=== PATIENT | male | born 1945 | race Caucasian/White ===

== ENCOUNTER 2019-07-18 21:25 | Emergency (ER) | payer MEDICARE, BC ==
[2019-07-18] MEDS ORDERED: Sodium Chloride 0.9% 10 ML Syringe FLUSH PRN (21:41)
[2019-07-18] MEDS ORDERED: HYDROmorphone 1 MG/ML Syringe IVPUSH ONE (21:42)
[2019-07-18] MEDS ORDERED: Sodium Chloride 0.9% 1,000 ML IV ONE (21:42)
[2019-07-18] MEDS ORDERED: Ondansetron 4 MG/2 ML SDV IVPUSH ONE (21:42)
[2019-07-18 22:26] LABS: CHLORIDE,CL 106 mmol/L (98-107); SODIUM,NA 144 mmol/L (136-145)
[2019-07-18 22:27] LABS: ANION GAP 15.6 mmol/L (10-20)
[2019-07-18] MEDS ORDERED: Iopamidol 612 MG/ML 100 ML Bottle IVPUSH ONE (23:13)
[2019-07-18] MEDS ORDERED: Take Home: Ondansetron 4 MG Tab.DIS, 2 Tab Pack PO ONE (23:36)
--- NOTE | 2019-07-19 00:11 | EDM.PDOC ---
ED HPI GENERAL MEDICAL PROBLEM - General Chief Complaint: Gastrointestinal Problem Stated Complaint: Nausea and vomiting Time Seen by Provider: 07/18/19 21:35 Source of Information: Reports: Patient History Limitations: Reports: No Limitations - History of Present Illness INITIAL COMMENTS - FREE TEXT/NARRATIVE: Pt. presents to ER with complaints of nausea, stomach upset, and inability to hold down medications. Pt. complains of severe leg discomfort, but states that this is chronic in nature, and worse because he has been unable to take his oxycodone. Denies any diarrhea. No chest pain or shortness of breath. He does complain of weakness and fatigue. He states that numerous people that he spent gerson with were ill with similar symptoms. Onset: Today Onset Date: 07/19/19 Location: Reports: Abdomen, Lower Extremity, Left, Lower Extremity, Right, Generalized Quality: Reports: Ache, Burning Associated Symptoms: Reports: Nausea/Vomiting bilateral leg pain Pain Score (Numeric/FACES): 10 - Related Data Allergies Allergy/AdvReac Type Severity Reaction Status Date / Time bee venom protein (honey bee) Allergy Hives Verified 07/18/19 21:55 morphine Allergy Hives Verified 07/18/19 21:55 Penicillins Allergy Hives Verified 07/18/19 21:55 Home Meds: Home Meds carvediloL [Coreg] 12.5 mg PO BID 11/08/13 [History] Isosorbide Mononitrate [Isosorbide Mononitrate ER] 60 mg PO DAILY 08/30/16 [ History] Sertraline [Zoloft] 150 mg PO DAILY 08/30/16 [History] amLODIPine [Norvasc] 5 mg PO DAILY 08/30/16 [History] oxyCODONE HCl [Oxycodone HCl] 10 mg PO Q4H PRN 08/30/16 [History] Amitriptyline [Elavil] 50 mg PO BEDTIME 06/17/18 [History] Aspirin [Halfprin] 81 mg PO DAILY 06/17/18 [History] Gabapentin [Neurontin] 600 mg PO TID 06/17/18 [History] Lutein/Zeaxanthin [Lutein-Zeaxanthin 25-5 mg Sfgl] 1 each PO DAILY 06/17/18 [ History] Nitroglycerin 0.4 mg SL ASDIRECTED 06/17/18 [History] Omeprazole Magnesium [Prilosec Otc] 20 mg PO DAILY 06/17/18 [History] Sennosides/Docusate Sodium [Sennosides-Docusate Sodium] 2 each PO BID 06/17/18 [ History] atorvaSTATin Calcium [Lipitor] 40 mg PO DAILY 06/17/18 [History] Past Medical History Cardiovascular History: Reports: Angina, CAD, High Cholesterol, Hypertension, [place] Other Cardiovascular History: states he was told he had a heart attack "a long time ago" but was unaware of the incident. dislipidemia. peripheral arterial occlusive disease, chronic. peripheral vascular disease, chronic Respiratory History: Reports: COPD Gastrointestinal History: Reports: Hiatal Hernia Other Gastrointestinal History: schatzki's ringrecurent left inguinal hernia Other Genitourinary History: hematuria. nephrolithiasis Other Musculoskeletal History: degeneration of lumbar intervertebral disc. bilateral carpal tunnel syndrome. failed back syndrome. cervical radiculitis. cervical myelopathy. cervical spondylosis with myelopathy. degenerative disc disease, cervical. s/p spinal fusion Other Neuro History: restless leg syndrome. idiopathic progressive polyneuropathy Psychiatric History: Reports: Depression Other Psychiatric History: smoking addiction Other Endocrine/Metabolic History: unintentional wt loss - Past Surgical History Cardiovascular Surgical History: Reports: Coronary Artery Stent Other Cardiovascular Surgeries/Procedures: cardiac catherization GI Surgical History: Reports: Colonoscopy, EGD, Hernia, Inguinal, Hernia Repair/ Other Other Female Surgeries/Procedures: cystoscopy Male Surgical History: Reports: Lithotripsy ([facility]) Musculoskeletal Surgical History: Reports: Arthroscopic Procedure Other Musculoskeletal Surgeries/Procedures:: lumbar fusion. cervical spine surgery. hand surgery. cervical fusion ED ROS GENERAL - Review of Systems Review Of Systems: See Below Constitutional: Reports: No Symptoms HEENT: Reports: No Symptoms Respiratory: Reports: No Symptoms Cardiovascular: Reports: No Symptoms Endocrine: Reports: No Symptoms GI/Abdominal: Reports: Abdominal Pain, Nausea, Vomiting. Denies: Black Stool, Bloody Stool, Diarrhea, Distension : Reports: No Symptoms Musculoskeletal: Reports: No Symptoms Skin: Reports: No Symptoms Neurological: Reports: No Symptoms Psychiatric: Reports: No Symptoms Hematologic/Lymphatic: Reports: No Symptoms Immunologic: Reports: No Symptoms ED EXAM, GENERAL - Physical Exam Exam: See Below Exam Limited By: No Limitations General Appearance: Alert, WD/WN, No Apparent Distress Nose: Normal Inspection, Normal Mucosa, No Blood Throat/Mouth: Normal Inspection, Normal Lips, Normal Teeth, Normal Gums, Normal Oropharynx, No Airway Compromise Head: Atraumatic, Normocephalic Neck: Normal Inspection, Supple, Non-Tender Respiratory/Chest: No Respiratory Distress, Lungs Clear, Normal Breath Sounds, No Accessory Muscle Use, Chest Non-Tender Cardiovascular: Normal Peripheral Pulses, Regular Rate, Rhythm, No Edema, No JVD , No Murmur, No Rub Peripheral Pulses: 4+: Radial (R) GI/Abdominal: Normal Bowel Sounds, Soft, Tender (diffuse). No: Guarding, Rigid , Rebound, Mass (Male) Exam: Deferred Back Exam: Normal Inspection, Full Range of Motion Extremities: Normal Inspection, Normal Range of Motion, Non-Tender, No Pedal Edema, Normal Capillary Refill Neurological: Alert, Oriented, CN II-XII Intact, Normal Cognition, Normal Reflexes Psychiatric: Normal Affect, Normal Mood Course - Vital Signs Last Recorded V/S: Last Vital Signs Temp 37.6 C 07/18/19 21:25 Pulse 66 07/18/19 21:25 Resp 16 07/18/19 21:25 BP 184/71 H 07/18/19 21:25 Pulse Ox 97 07/18/19 21:25 - Orders/Labs/Meds Orders: Active Orders 24 hr Category Date Time Status Abdomen 2V AP Flat Upright [CR] Stat Exams 07/18/19 21:41 Taken Abdomen Pelvis w Cont [CT] Stat Exams 07/18/19 22:57 Taken Sodium Chloride 0.9% [Saline Flush] Med 07/18/19 21:41 Active 10 ml FLUSH ASDIRECTED PRN Peripheral IV Insertion Adult [OM.PC] Routine Oth 07/18/19 21:42 Ordered Medication Orders Sodium Chloride (Saline Flush) 10 ml FLUSH ASDIRECTED PRN PRN Reason: Keep Vein Open Labs: Laboratory Tests 07/18/19 07/18/19 07/18/19 Range/Units 22:02 22:02 22:02 WBC 12.0 H (4.0-10.0) x10^3/uL RBC 4.79 (4.5-6.0) x10^6/uL Hgb 14.9 (14.0-18.0) g/dL Hct 45.2 (40.0-52.0) % MCV 94.4 H (78.0-93.0) fL MCH 31.1 (26.0-32.0) pg MCHC 33.0 (32.0-36.0) g/dL RDW Coeff of Jerome 14.1 (10.0-15.0) % Plt Count 275 (130-400) x10^3/uL Neut % (Auto) 88.5 H (50.0-80.0) % Lymph % (Auto) 5.3 L (25.0-50.0) % Whitley % (Auto) 5.8 (2.0-11.0) % Eos % (Auto) 0.2 (0.0-4.0) % Baso % (Auto) 0.2 (0.2-1.2) % PT 10.8 (10.0-12.8) SEC INR 1.0 L (2.0-3.5) Sodium 144 (136-145) mmol/L Potassium 3.6 (3.5-5.1) mmol/L Chloride 106 (98-107) mmol/L Carbon Dioxide 26 (21-32) mmol/L Anion Gap 15.6 (10-20) mmol/L BUN 16 (7-18) mg/dL Creatinine 0.8 (0.70-1.30) mg/dL Est Cr Clr Drug Dosing 80.75 mL/min Estimated GFR (MDRD) > 60 Glucose 113 H (74-106) mg/dL Calcium 9.1 (8.5-10.1) mg/dL Corrected Calcium 9.42 (8.5-10.1) mg/dL Total Bilirubin 0.5 (0.2-1.0) mg/dL AST 15 (15-37) U/L ALT 19 (16-63) U/L Alkaline Phosphatase 91 (46-116) U/L C-Reactive Protein 4.6 H (<=0.9) mg/dL Total Protein 7.3 (6.4-8.2) g/dL Albumin 3.6 (3.4-5.0) g/dL Globulin 3.7 Albumin/Globulin Ratio 0.97 Meds: Medications Generic Name Dose Route Start Last Admin Trade Name Freq PRN Reason Stop Dose Admin Sodium Chloride 10 ml 07/18/19 21:41 Saline Flush FLUSH ASDIRECTED PRN Keep Vein Open Discontinued Medications Generic Name Dose Route Start Last Admin Trade Name Trang PRN Reason Stop Dose Admin Hydromorphone HCl 1 mg 07/18/19 21:42 07/18/19 22:07 Dilaudid IVPUSH 07/18/19 21:43 1 mg ONETIME ONE Administration Sodium Chloride 1,000 mls @ 1,000 mls/hr 07/18/19 21:42 07/18/19 22:00 Normal Saline IV 07/18/19 22:41 1,000 mls/hr .BOLUS ONE Administration Iopamidol 100 ml 07/18/19 23:13 07/18/19 23:23 Isovue-300 (61%) IVPUSH 07/18/19 23:14 100 ml ONETIME ONE Administration Ondansetron HCl 4 mg 07/18/19 21:42 07/18/19 22:05 Zofran IVPUSH 07/18/19 21:43 4 mg ONETIME ONE Administration Ondansetron HCl 1 packet 07/18/19 23:36 07/18/19 23:44 Take Home: Ondansetron Odt 4 Mg, 2 Tab Pack PO 07/18/19 23:37 1 packet ONETIME ONE Administration - Radiology Interpretation Free Text/Narrative:: abundant stool noted throughout colon. No obvious obstruction. No free air or obvious perf. Gallbladder enlarged. No pain over RUQ Departure - Departure Time of Disposition: 23:45 Disposition: Home, Self-Care 01 Clinical Impression: Gastroenteritis - Discharge Information Instructions: Ondansetron oral dissolving tablet, Viral Gastroenteritis, Adult , [id number] Referrals: Mariya Neal DO [Primary Care Provider] - Forms: ED Department Discharge Additional Instructions: Zofran 4mg ODT 1 tab every 6 hours for nausea Drink plenty of fluids Clear liquid diet tonight and until noon tomorrow, then slowly advance diet to include toast, rice, bananas, crackers and other bland, high starch foods. Recheck in clinic in 7-10 days, sooner if not gradually improving. Sepsis Event Note - Evaluation Sepsis Screening Result: No Definite Risk - Focused Exam Vital Signs: Vital Signs Temp Pulse Resp BP Pulse Ox 07/18/19 21:25 37.6 C 66 16 184/71 H 97 Date Exam was Performed: 07/19/19 Time Exam was Performed: 00:06 - My Orders Last 24 Hours: My Active Orders 07/18/19 21:41 Abdomen 2V AP Flat Upright [CR] Stat Sodium Chloride 0.9% [Saline Flush] 10 ml FLUSH ASDIRECTED PRN 07/18/19 21:42 Peripheral IV Insertion Adult [OM.PC] Routine 07/18/19 22:57 Abdomen Pelvis w Cont [CT] Stat - Assessment/Plan Last 24 Hours: My Active Orders 07/18/19 21:41 Abdomen 2V AP Flat Upright [CR] Stat Sodium Chloride 0.9% [Saline Flush] 10 ml FLUSH ASDIRECTED PRN 07/18/19 21:42 Peripheral IV Insertion Adult [OM.PC] Routine 07/18/19 22:57 Abdomen Pelvis w Cont [CT] Stat Plan: Zofran 4mg ODT 1 tab every 6 hours for nausea Drink plenty of fluids Clear liquid diet tonight and until noon tomorrow, then slowly advance diet to include toast, rice, bananas, crackers and other bland, high starch foods. Recheck in clinic in 7-10 days, sooner if not gradually improving.
--- NOTE | 2019-07-19 07:45 | CT ---
[id number] CT/CT Abdomen Pelvis W IV EXAM: CT Abdomen Pelvis W IV CLINICAL DATA: ABDOMINAL PAIN ELEVATED WHITE BLOOD CELL COUNT COMPARISON: NO PREVIOUS SIMILAR EXAM IS AVAILABLE FINDINGS: A tiny nodule is seen at the right lung base on image 6, series 2 There is a small hiatal hernia The gallbladder is significantly distended There are atheromatous changes There are surgical changes of the lumbar spine with streak artifact The liver and spleen show no focal abnormalities Bilateral low density adrenal masses are seen that may represent adenomas This could be double checked with follow-up Small renal cysts are identified There is no hydronephrosis There is no aneurysm The pancreas shows no obvious acute pathology The pelvis shows no mass or adenopathy There is no bowel distention, free air, or free fluid There is no evidence of appendicitis IMPRESSION: SIGNIFICANT GALLBLADDER DISTENTION CONSIDER FURTHER STUDIES POSSIBILITY OF CHOLECYSTITIS IS RAISED Kobi Garcia MD 07/19/19 [id number] Thank you for allowing us to participate in the care of your patient.
--- NOTE | 2019-07-19 07:47 | CR ---
[id number] RAD/RAD Abd Flat and Upright 2V Exam: RAD Abd Flat and Upright 2V Clinical Data: ABDOMINAL PAIN COMPARISON: CORRELATION IS MADE WITH THE CAT SCAN TO FOLLOW FINDINGS: Surgical changes of lumbar spine are seen There is no bowel obstruction There is no free air There is no organomegaly or pathologic calcification IMPRESSION: NO ACUTE PLAIN FILM ABNORMALITY Kobi Garcia MD 07/19/19 [id number] Thank you for allowing us to participate in the care of your patient.
== END 2019-07-18 23:50 | disposition home or self-care (01) ==
LOC: VM.ED 21:25
DX: K52.9 Noninfective gastroenteritis and colitis, unspecified (principal); I25.2 Old myocardial infarction; I10 Essential (primary) hypertension; Z88.5 Allergy status to narcotic agent; Z88.0 Allergy status to penicillin; Z91.030 Bee allergy status; Z79.899 Other long term (current) drug therapy; Z79.82 Long term (current) use of aspirin
CPT/HCPCS: 74019; 74177; 80053; 85025; 85610; 86140; 96361; 96374; 96375; 99284; A9270; J1170; J2405; J7030; Q9967

== ENCOUNTER 2021-03-26 15:02 | Inpatient (IN) | payer MEDICARE, BC ==
[2021-03-26] MEDS ORDERED: cefTRIAXone 2 GM Vial IVPUSH ONE (15:10)
[2021-03-26] MEDS ORDERED: Lactated Ringers 1,000 ML IV ONE (15:11)
--- NOTE | 2021-03-26 16:06 | CR ---
[id number] RAD/RAD Chest PA or AP 1V EXAM: FRONTAL CHEST INDICATION: CONFUSION, FEVER. COMPARISON: None. DISCUSSION: The lungs are hypoinflated, but clear. The heart is normal in size. No effusions. Partially imaged thoracolumbar fusion hardware. Chronic healed right clavicle fracture. IMPRESSION: 1. No acute cardiopulmonary findings. James Ríos MD 03/26/21 [id number] Thank you for allowing us to participate in the care of your patient.
--- NOTE | 2021-03-26 16:10 | PCM.EKG ---
#1 Interpretation EKG Date: 03/26/21 Time: 15:47 Rhythm: NSR Rate (Beats/Min): 99 [place]: Normal P-Wave: Present QRS: RBBB ST-T: Normal QT: Normal Comparison: NA - No Prior EKG
--- NOTE | 2021-03-26 16:20 | CT ---
[id number] CT/CT Head WO IV EXAM: CT Head WO IV CLINICAL DATA: TRAUMA COMPARISON: No previous similar exam is available for comparison. FINDINGS: There is no mass or mass effect. There is no hemorrhage or hydrocephalus. There are no extra-axial fluid collections. There are no sites of abnormal attenuation. IMPRESSION: NO PLAIN CT EVIDENCE OF ACUTE INTRACRANIAL PROCESS. Kobi Garcia MD 03/26/21 [id number] Thank you for allowing us to participate in the care of your patient.
[2021-03-26 16:21] LABS: CHLORIDE,CL 106 mmol/L (98-107); SODIUM,NA 141 mmol/L (136-145)
--- NOTE | 2021-03-26 16:22 | CT ---
[id number] CT/CT Cervical Spine WO IV Exam: CT Cervical Spine WO IV Clinical Data: TRAUMA COMPARISON: NO PREVIOUS SIMILAR EXAM IS AVAILABLE FINDINGS: No fracture or dislocation is seen There are extensive degenerative changes. There appear to be surgical changes There is fusion across the C5-C6 disc space The prevertebral soft tissues are unremarkable IMPRESSION: NO FRACTURE OR SUBLUXATION DEGENERATIVE CHANGES Kobi Garcia MD 03/26/21 [id number] Thank you for allowing us to participate in the care of your patient.
[2021-03-26 16:23] LABS: ANION GAP 12.4 mmol/L (5-15)
--- NOTE | 2021-03-26 16:26 | EDM.PDOC ---
ED HPI GENERAL MEDICAL PROBLEM - General Chief Complaint: Neuro Symptoms/Deficits Stated Complaint: confusion Time Seen by Provider: 03/26/21 15:02 Source of Information: Reports: EMS History Limitations: Reports: Altered Mental Status - History of Present Illness INITIAL COMMENTS - FREE TEXT/NARRATIVE: Patient comes emergency department today from home by ambulance with concerns of acute confusion. The HPI is primarily obtained from EMS as the patient is quite encephalopathic and confused upon arrival. Reviewing the patient chart he has a history of coronary artery disease hypertension dyslipidemia long-term narcotic usage for chronic back pain COPD recurrent major depressive disorder she has had some spinal fusion in this cervical region as well as his thoracic lumbar region. He lives at home alone. Last night he did talk to a family member and per the family member was normal on the phone last night. They went to his house today to bring him to an appointment when they found him laying on the ground confused and thrashing around. He was not acting like himself. The ambulance was summoned. Upon EMS arrival patient was not only confused but somewhat obtunded but slowly started to alert more. He never lost his airway. He was placed in a c-collar due to a recent fall. According to the family he had kicked something with his right great toe a couple of days ago and involves the right great toenail. He is otherwise not had any complaints. Upon arrival the patient is on a scoop stretcher c-collar in place. He is alert he is mumbling he does not follow commands. He is agitated. He is in no distress. Moving all of his extremities spontaneously. He does not know his name he does not know where he is he does not know what year it is he cannot recall the incidence of today. Rest of the HPI and ROS is unobtainable due to the patient's acute confusion. Treatments MOVIE STAR: Reports: IV/IO - Related Data Allergies Allergy/AdvReac Type Severity Reaction Status Date / Time bee venom protein (honey bee) Allergy Hives Verified 03/26/21 15:27 morphine Allergy Hives Verified 03/26/21 15:27 Penicillins Allergy Hives Verified 03/26/21 15:27 Home Meds: Home Meds carvediloL [Coreg] 12.5 mg PO BID 11/08/13 [History] Isosorbide Mononitrate [Isosorbide Mononitrate ER] 60 mg PO DAILY 08/30/16 [History] Sertraline [Zoloft] 150 mg PO DAILY 08/30/16 [History] amLODIPine [Norvasc] 5 mg PO DAILY 08/30/16 [History] oxyCODONE HCl [Oxycodone HCl] 10 mg PO QID PRN 08/30/16 [History] Amitriptyline [Elavil] 50 mg PO BEDTIME 06/17/18 [History] Aspirin [Halfprin] 81 mg PO DAILY 06/17/18 [History] Lutein/Zeaxanthin [Lutein-Zeaxanthin 25-5 mg Sfgl] 1 each PO BID 06/17/18 [History] Nitroglycerin 0.4 mg SL ASDIRECTED PRN 06/17/18 [History] Sennosides/Docusate Sodium [Sennosides-Docusate Sodium] 1 each PO BID 06/17/18 [History] atorvaSTATin Calcium [Lipitor] 40 mg PO DAILY 06/17/18 [History] ARIPiprazole [Abilify] 5 mg PO DAILY 03/26/21 [History] Past Medical History Cardiovascular History: Reports: Angina, CAD, High Cholesterol, Hypertension, [place] Other Cardiovascular History: states he was told he had a heart attack "a long time ago" but was unaware of the incident. dislipidemia. peripheral arterial occlusive disease, chronic. peripheral vascular disease, chronic Respiratory History: Reports: COPD Gastrointestinal History: Reports: Hiatal Hernia Other Gastrointestinal History: schatzki's ringrecurent left inguinal hernia Other Genitourinary History: hematuria. nephrolithiasis Other Musculoskeletal History: degeneration of lumbar intervertebral disc. bilateral carpal tunnel syndrome. failed back syndrome. cervical radiculitis. cervical myelopathy. cervical spondylosis with myelopathy. degenerative disc disease, cervical. s/p spinal fusion Other Neuro History: restless leg syndrome. idiopathic progressive polyneuropathy Psychiatric History: Reports: Depression Other Psychiatric History: smoking addiction Other Endocrine/Metabolic History: unintentional wt loss - Past Surgical History Cardiovascular Surgical History: Reports: Coronary Artery Stent Other Cardiovascular Surgeries/Procedures: cardiac catherization GI Surgical History: Reports: Colonoscopy, EGD, Hernia, Inguinal, Hernia Repair/Other Male Surgical History: Reports: Lithotripsy (ESWL) Musculoskeletal Surgical History: Reports: Arthroscopic Procedure Other Musculoskeletal Surgeries/Procedures:: lumbar fusion. cervical spine surgery. hand surgery. cervical fusion Social & Family History - Tobacco Use Tobacco Use Status *Q: Unknown Ever Used Tobacco ED ROS GENERAL - Review of Systems Review Of Systems: Unable To Obtain Reason Not Obtained: Acute confusion/encephalopathy ED EXAM, NEURO - Physical Exam Exam: See Below Exam Limited By: Altered Mental Status (Patient does not know his name does not know where he is he thinks it is 1938. He does not recognize family members in the room. He is constantly thrashing about the bed complaining of back pain.) General Appearance: Alert, Anxious Eye Exam: Bilateral Eye: EOMI, PERRL Ears: Normal External Exam Nose: Normal Inspection Throat/Mouth: Normal Inspection Head Exam: Atraumatic, Normocephalic Neck: Normal Inspection, Supple, Non-Tender, Full Range of Motion. No: Tender Lateral (C-collar in place upon arrival was left in place. No overt bony deformities or point tenderness on palpation of the posterior cervical spine. Although due to encephalopathy I am unable to clear his C-spine at this time), Tender Midline Respiratory/Chest: No Respiratory Distress, Lungs Clear, Normal Breath Sounds, No Accessory Muscle Use, Chest Non-Tender Cardiovascular: Normal Peripheral Pulses, Regular Rate, Rhythm, No Murmur GI/Abdominal: Normal Bowel Sounds, Soft, Non-Tender (Male) Exam: Deferred Rectal (Males) Exam: Deferred Neurological: Alert, Other (As above pleasantly confused agitated moves all extremities strong equal spontaneously. No focal neurological deficits other than acute confusion and encephalopathy) Back Exam: Normal Inspection, Other (There is no bruising swelling ecchymosis or other signs of trauma to the posterior. There is a well-healed vertical surgical incision.). No: Paraspinal Tenderness, Vertebral Tenderness Extremities: No Pedal Edema, Other (He has multiple superficial abrasions/ulcerations on the prominences of the dorsum of his feet as well as the distal anterior tib-fib bilaterally.). No: Normal Inspection (His right great toe has avulsed the toenail. There is quite a bit of erythema of the great toe that extends to the right entire to the forefoot. There is no drainage. There is multiple abrasions primarily of the bony prominences of bilateral toes that appear noninfectious.) Psychiatric: Anxious Skin Exam: Dry, Intact, Normal Color, Cool Course - Vital Signs Last Recorded V/S: Last Vital Signs Temp 98.7 F 03/26/21 17:05 Pulse 96 03/26/21 18:37 Resp 14 03/26/21 18:37 BP 143/83 H 03/26/21 18:37 Pulse Ox 96 03/26/21 18:37 - Orders/Labs/Meds Orders: Active Orders 24 hr Category Date Time Status CULTURE BLOOD [BC] Stat Lab 03/26/21 15:47 Received CULTURE BLOOD [BC] Stat Lab 03/26/21 15:54 Results MYOGLOBIN, URINE Stat Lab 03/26/21 16:40 Received Sodium Chloride 0.9% [Normal Saline] 1,000 ml Med 03/26/21 17:30 Active IV ASDIRECTED Blood Culture x2 Reflex Set [OM.PC] Stat Oth 03/26/21 15:07 Ordered Medication Orders Amitriptyline HCl (Amitriptyline 25 Mg Tab #Own Med#) 50 mg PO BEDTIME ECTOR Amlodipine Besylate (Amlodipine 5 Mg Tab #Own Med#) 5 mg PO DAILY [facility] Aripiprazole (Aripiprazole 5 Mg Tab #Own Med#) 5 mg PO DAILY [facility] Aspirin (Aspirin 81 Mg Tab.Ec #Own Med#) 81 mg PO DAILY [facility] Carvedilol (Carvedilol 12.5 Mg Tab #Own Med#) 12.5 mg PO BID [facility] Ceftriaxone Sodium (Ceftriaxone 1 Gm Vial) 1 gm IVPUSH DAILY [facility] Enoxaparin Sodium (Enoxaparin 40 Mg/0.4 Ml Syringe) 40 mg SUBCUT DAILY [facility] Hydromorphone HCl (Hydromorphone 0.5 Mg/0.5 Ml Syringe) 0.5 mg IV Q4HR PRN PRN Reason: Pain Sodium Chloride (Normal Saline) 1,000 mls @ 125 mls/hr IV ASDIRECTED ECTOR Last Admin: 03/26/21 18:52 Dose: 125 mls/hr Documented by: EMILE Potassium Chloride/Sodium Chloride (Normal Saline With 20 Meq Kcl) 1,000 mls @ 100 mls/hr IV ASDIRECTED ECTOR Isosorbide Mononitrate (Isosorbide Mononitrate 60 Mg Tab.Er #Own Med#) 60 mg PO DAILY [facility] Non-Formulary Medication (Lutein/Zeaxanthin [Lutein-Zeaxanthin 25-5 Mg Sfgl]) 1 each PO BID ECTOR Non-Formulary Medication (Oxycodone Hcl) 10 mg PO QID PRN PRN Reason: Pain Polyethylene Glycol (Polyethylene Glycol 3350 Powder 17 Gm Packet) 17 gm PO DAILY PRN PRN Reason: Constipation Senna/Docusate Sodium (Docusate Sodium/Sennosides 50-8.6 Mg Tab) 1 tab PO BID [facility] Sertraline HCl (Sertraline 100 Mg Tab #Own Med#) 150 mg PO DAILY [facility] Labs: Laboratory Tests 03/26/21 03/26/21 03/26/21 Range/Units 15:47 15:47 15:47 WBC 20.3 H* (4.0-10.0) x10^3/uL RBC 4.39 L (4.5-6.0) x10^6/uL Hgb 13.4 L (14.0-18.0) g/dL Hct 40.1 (40.0-52.0) % MCV 91.3 (78.0-93.0) fL MCH 30.5 (26.0-32.0) pg MCHC 33.4 (32.0-36.0) g/dL RDW Coeff of Jerome 13.2 (10.0-15.0) % Plt Count 334 (130-400) x10^3/uL Add Manual Diff Yes Neutrophils % (Manual) 78 (50-80) % Band Neutrophils % 7 H (0-6) % Lymphocytes % (Manual) 3 L (25-50) % Reactive Lymphs % 2 H (0) % Monocytes % (Manual) 8 (2-11) % Basophils % (Manual) 1 (0-1) % Metamyelocytes % 1 H (0) % Immature Gran # 0.20 H (0.00-0.07) X10^3/Ul Absolute Neutrophils 17.3 H (1.8-7.7) x10^3/uL Lymphocytes # (Manual) 1.0 (1.0-4.8) x10^3/uL Monocytes # (Manual) 1.6 H (0.0-0.8) x10^3/uL Basophils # (Manual) 0.2 (0.0-0.2) x10^3/uL Vacuolated Monocytes 1+ slight H Platelet Estimate Adequate Sodium 141 (136-145) mmol/L Potassium 3.4 L (3.5-5.1) mmol/L Chloride 106 (98-107) mmol/L Carbon Dioxide 26 (21-32) mmol/L Anion Gap 12.4 (5-15) mmol/L BUN 15 (7-18) mg/dL Creatinine 0.7 (0.70-1.30) mg/dL Est Cr Clr Drug Dosing TNP Estimated GFR (MDRD) > 60 Glucose 125 H (70-99) mg/dL Lactic Acid 2.0 (0.4-2.0) mmol/L Calcium 8.7 (8.5-10.1) mg/dL Corrected Calcium 9.5 (8.5-10.1) mg/dL Total Bilirubin 0.9 (0.2-1.0) mg/dL AST 39 H (15-37) U/L ALT 27 (16-63) U/L Alkaline Phosphatase 82 (46-116) U/L Ammonia (19-54) ug/dL Creatine Kinase (39-308) U/L Troponin I High Sens 13 (<=76) ng/L C-Reactive Protein 10.4 H (<=0.9) mg/dL Total Protein 6.2 L (6.4-8.2) g/dL Albumin 3.0 L (3.4-5.0) g/dL Globulin 3.2 Albumin/Globulin Ratio 0.94 Lipase 93 (73-393) U/L Procalcitonin (0.1-0.50) ng/mL Urine Color (YELLOW) Urine Appearance (CLEAR) Urine pH (5.0-8.0) Ur Specific [place] Urine Protein (NEGATIVE) mg/dL Urine Glucose (UA) (NEGATIVE) mg/dL Urine Ketones (NEGATIVE) mg/dL Urine Occult Blood (NEGATIVE) Urine Nitrite (NEGATIVE) Urine Bilirubin (NEGATIVE) Urine Urobilinogen (0.2) EU/dL Ur Leukocyte Esterase (NEGATIVE) U Hyaline Cast (Auto) Urine RBC (NOT SEEN) /HPF Urine WBC (NOT SEEN) /HPF Ur Squamous Epith Cells (NOT SEEN) /HPF Urine Bacteria (NOT SEEN) /HPF Urine Mucus (NOT SEEN) /LPF Urine Opiates Screen (NEGATIVE) Ur Buprenorphine Scrn (NEGATIVE) Ur Oxycodone Screen (NEGATIVE) Urine Methadone Screen (NEGATIVE) Ur Barbiturates Screen (NEGATIVE) Ur Phencyclidine Scrn (NEGATIVE) Ur Amphetamine Screen (NEGATIVE) U Methamphetamines Scrn (NEGATIVE) Urine MDMA Screen (NEGATIVE) U Benzodiazepines Scrn (NEGATIVE) U Cocaine Metab Screen (NEGATIVE) U Marijuana (THC) Screen (NEGATIVE) Ethyl Alcohol < 3 (0-3) mg/dL Influenza Type A RNA (NEGATIVE) RSV RNA (INAAT) (NEGATIVE) Influenza Type B RNA (NEGATIVE) SARS-CoV-2 RNA (FAREED) (NEGATIVE) 03/26/21 03/26/21 03/26/21 Range/Units 15:47 15:47 16:40 WBC (4.0-10.0) x10^3/uL RBC (4.5-6.0) x10^6/uL Hgb (14.0-18.0) g/dL Hct (40.0-52.0) % MCV (78.0-93.0) fL MCH (26.0-32.0) pg MCHC (32.0-36.0) g/dL RDW Coeff of Jerome (10.0-15.0) % Plt Count (130-400) x10^3/uL Add Manual Diff Neutrophils % (Manual) (50-80) % Band Neutrophils % (0-6) % Lymphocytes % (Manual) (25-50) % Reactive Lymphs % (0) % Monocytes % (Manual) (2-11) % Basophils % (Manual) (0-1) % Metamyelocytes % (0) % Immature Gran # (0.00-0.07) X10^3/Ul Absolute Neutrophils (1.8-7.7) x10^3/uL Lymphocytes # (Manual) (1.0-4.8) x10^3/uL Monocytes # (Manual) (0.0-0.8) x10^3/uL Basophils # (Manual) (0.0-0.2) x10^3/uL Vacuolated Monocytes Platelet Estimate Sodium (136-145) mmol/L Potassium (3.5-5.1) mmol/L Chloride (98-107) mmol/L Carbon Dioxide (21-32) mmol/L Anion Gap (5-15) mmol/L BUN (7-18) mg/dL Creatinine (0.70-1.30) mg/dL Est Cr Clr Drug Dosing Estimated GFR (MDRD) Glucose (70-99) mg/dL Lactic Acid (0.4-2.0) mmol/L Calcium (8.5-10.1) mg/dL Corrected Calcium (8.5-10.1) mg/dL Total Bilirubin (0.2-1.0) mg/dL AST (15-37) U/L ALT (16-63) U/L Alkaline Phosphatase (46-116) U/L Ammonia (19-54) ug/dL Creatine Kinase 820 H* (39-308) U/L Troponin I High Sens (<=76) ng/L C-Reactive Protein (<=0.9) mg/dL Total Protein (6.4-8.2) g/dL Albumin (3.4-5.0) g/dL Globulin Albumin/Globulin Ratio Lipase (73-393) U/L Procalcitonin <0.05 L (0.1-0.50) ng/mL Urine Color Yellow (YELLOW) Urine Appearance Clear (CLEAR) Urine pH 6.0 (5.0-8.0) Ur Specific [place] 1.020 Urine Protein Trace H (NEGATIVE) mg/dL Urine Glucose (UA) Negative (NEGATIVE) mg/dL Urine Ketones 15 H (NEGATIVE) mg/dL Urine Occult Blood Small H (NEGATIVE) Urine Nitrite Negative (NEGATIVE) Urine Bilirubin Negative (NEGATIVE) Urine Urobilinogen 1.0 (0.2) EU/dL Ur Leukocyte Esterase Negative (NEGATIVE) U Hyaline Cast (Auto) Few Urine RBC 5-10 H (NOT SEEN) /HPF Urine WBC 0-5 (NOT SEEN) /HPF Ur Squamous Epith Cells Rare (NOT SEEN) /HPF Urine Bacteria Not seen (NOT SEEN) /HPF Urine Mucus Not seen (NOT SEEN) /LPF Urine Opiates Screen (NEGATIVE) Ur Buprenorphine Scrn (NEGATIVE) Ur Oxycodone Screen (NEGATIVE) Urine Methadone Screen (NEGATIVE) Ur Barbiturates Screen (NEGATIVE) Ur Phencyclidine Scrn (NEGATIVE) Ur Amphetamine Screen (NEGATIVE) U Methamphetamines Scrn (NEGATIVE) Urine MDMA Screen (NEGATIVE) U Benzodiazepines Scrn (NEGATIVE) U Cocaine Metab Screen (NEGATIVE) U Marijuana (THC) Screen (NEGATIVE) Ethyl Alcohol (0-3) mg/dL Influenza Type A RNA (NEGATIVE) RSV RNA (INAAT) (NEGATIVE) Influenza Type B RNA (NEGATIVE) SARS-CoV-2 RNA (FAREED) (NEGATIVE) 03/26/21 03/26/21 03/26/21 Range/Units 16:40 16:50 17:32 WBC (4.0-10.0) x10^3/uL RBC (4.5-6.0) x10^6/uL Hgb (14.0-18.0) g/dL Hct (40.0-52.0) % MCV (78.0-93.0) fL MCH (26.0-32.0) pg MCHC (32.0-36.0) g/dL RDW Coeff of Jerome (10.0-15.0) % Plt Count (130-400) x10^3/uL Add Manual Diff Neutrophils % (Manual) (50-80) % Band Neutrophils % (0-6) % Lymphocytes % (Manual) (25-50) % Reactive Lymphs % (0) % Monocytes % (Manual) (2-11) % Basophils % (Manual) (0-1) % Metamyelocytes % (0) % Immature Gran # (0.00-0.07) X10^3/Ul Absolute Neutrophils (1.8-7.7) x10^3/uL Lymphocytes # (Manual) (1.0-4.8) x10^3/uL Monocytes # (Manual) (0.0-0.8) x10^3/uL Basophils # (Manual) (0.0-0.2) x10^3/uL Vacuolated Monocytes Platelet Estimate Sodium (136-145) mmol/L Potassium (3.5-5.1) mmol/L Chloride (98-107) mmol/L Carbon Dioxide (21-32) mmol/L Anion Gap (5-15) mmol/L BUN (7-18) mg/dL Creatinine (0.70-1.30) mg/dL Est Cr Clr Drug Dosing Estimated GFR (MDRD) Glucose (70-99) mg/dL Lactic Acid (0.4-2.0) mmol/L Calcium (8.5-10.1) mg/dL Corrected Calcium (8.5-10.1) mg/dL Total Bilirubin (0.2-1.0) mg/dL AST (15-37) U/L ALT (16-63) U/L Alkaline Phosphatase (46-116) U/L Ammonia 35 (19-54) ug/dL Creatine Kinase (39-308) U/L Troponin I High Sens (<=76) ng/L C-Reactive Protein (<=0.9) mg/dL Total Protein (6.4-8.2) g/dL Albumin (3.4-5.0) g/dL Globulin Albumin/Globulin Ratio Lipase (73-393) U/L Procalcitonin (0.1-0.50) ng/mL Urine Color (YELLOW) Urine Appearance (CLEAR) Urine pH (5.0-8.0) Ur Specific [place] Urine Protein (NEGATIVE) mg/dL Urine Glucose (UA) (NEGATIVE) mg/dL Urine Ketones (NEGATIVE) mg/dL Urine Occult Blood (NEGATIVE) Urine Nitrite (NEGATIVE) Urine Bilirubin (NEGATIVE) Urine Urobilinogen (0.2) EU/dL Ur Leukocyte Esterase (NEGATIVE) U Hyaline Cast (Auto) Urine RBC (NOT SEEN) /HPF Urine WBC (NOT SEEN) /HPF Ur Squamous Epith Cells (NOT SEEN) /HPF Urine Bacteria (NOT SEEN) /HPF Urine Mucus (NOT SEEN) /LPF Urine Opiates Screen Negative (NEGATIVE) Ur Buprenorphine Scrn Negative (NEGATIVE) Ur Oxycodone Screen Positive H (NEGATIVE) Urine Methadone Screen Negative (NEGATIVE) Ur Barbiturates Screen Negative (NEGATIVE) Ur Phencyclidine Scrn Negative (NEGATIVE) Ur Amphetamine Screen Negative (NEGATIVE) U Methamphetamines Scrn Negative (NEGATIVE) Urine MDMA Screen Negative (NEGATIVE) U Benzodiazepines Scrn Negative (NEGATIVE) U Cocaine Metab Screen Negative (NEGATIVE) U Marijuana (THC) Screen Negative (NEGATIVE) Ethyl Alcohol (0-3) mg/dL Influenza Type A RNA Negative (NEGATIVE) RSV RNA (INAAT) Negative (NEGATIVE) Influenza Type B RNA Negative (NEGATIVE) SARS-CoV-2 RNA (FAREED) Negative (NEGATIVE) Meds: Medications Generic Name Dose Route Start Last Admin Trade Name Freq PRN Reason Stop Dose Admin Amitriptyline HCl 50 mg 03/27/21 20:00 Amitriptyline 25 Mg Tab #Own Med# PO BEDTIME ECTOR Amlodipine Besylate 5 mg 03/27/21 08:00 Amlodipine 5 Mg Tab #Own Med# PO DAILY ECTOR Aripiprazole 5 mg 03/27/21 08:00 Aripiprazole 5 Mg Tab #Own Med# PO DAILY ECTOR Aspirin 81 mg 03/27/21 08:00 Aspirin 81 Mg Tab.Ec #Own Med# PO DAILY [facility] Carvedilol 12.5 mg 03/27/21 08:00 Carvedilol 12.5 Mg Tab #Own Med# PO BID [facility] Ceftriaxone Sodium 1 gm 03/27/21 15:00 Ceftriaxone 1 Gm Vial IVPUSH DAILY [facility] Enoxaparin Sodium 40 mg 03/27/21 08:00 Enoxaparin 40 Mg/0.4 Ml Syringe SUBCUT DAILY [facility] Hydromorphone HCl 0.5 mg 03/26/21 20:53 Hydromorphone 0.5 Mg/0.5 Ml Syringe IV Q4HR PRN Pain Sodium Chloride 1,000 mls @ 125 mls/hr 03/26/21 17:30 03/26/21 18:52 Normal Saline IV 125 mls/hr ASDIRECTED ECTOR Administration Potassium Chloride/Sodium Chloride 1,000 mls @ 100 mls/hr 03/26/21 20:30 Normal Saline With 20 Meq Kcl IV ASDIRECTED [facility] Isosorbide Mononitrate 60 mg 03/27/21 08:00 Isosorbide Mononitrate 60 Mg Tab.Er #Own Med# PO DAILY [facility] Non-Formulary Medication 1 each 03/27/21 08:00 Lutein/Zeaxanthin [Lutein-Zeaxanthin 25-5 Mg Sfgl] PO BID [facility] Non-Formulary Medication 10 mg 03/26/21 20:24 Oxycodone Hcl PO QID PRN Pain Polyethylene Glycol 17 gm 03/26/21 20:08 Polyethylene Glycol 3350 Powder 17 Gm Packet PO DAILY PRN Constipation Senna/Docusate Sodium 1 tab 03/27/21 08:00 Docusate Sodium/Sennosides 50-8.6 Mg Tab PO BID [facility] Sertraline HCl 150 mg 03/27/21 08:00 Sertraline 100 Mg Tab #Own Med# PO DAILY [facility] Discontinued Medications Generic Name Dose Route Start Last Admin Trade Name Freq PRN Reason Stop Dose Admin Ceftriaxone Sodium 2 gm 03/26/21 15:10 03/26/21 15:45 Ceftriaxone 2 Gm Vial IVPUSH 03/26/21 15:11 2 gm STAT ONE Administration Diphtheria/Tetanus/Acell Pertussis 0.5 ml 03/26/21 18:05 03/26/21 18:53 Diphtheria,Pertussis(Acell),Tetanus Vaccine 0.5 Ml Syringe IM 03/26/21 18:06 0.5 ml .ONCE ONE Administration Lactated Ringer's 1,000 mls @ 999 mls/hr 03/26/21 15:11 03/26/21 15:35 Ringers, Lactated IV 03/26/21 16:11 999 mls/hr ONETIME ONE Administration Morphine Sulfate 2 mg 03/26/21 16:33 03/26/21 16:35 Morphine 2 Mg/Ml Syringe IVPUSH 03/26/21 16:34 2 mg ONETIME ONE Administration Morphine Sulfate 4 mg 03/26/21 16:52 03/26/21 16:58 Morphine 4 Mg/Ml Syringe IVPUSH 03/26/21 16:53 4 mg ONETIME ONE Administration - Radiology Interpretation Free Text/Narrative:: CT of the head per radiology shows no plain CT evidence of acute intercranial process. Chest x-ray per radiology shows no acute cardiopulmonary finding. Some chronic thoracolumbar fusion hardware. Chronic healed right clavicle fracture CT cervical spine per radiology shows no fracture subluxation degenerative changes - Re-Assessments/Exams Free Text/Narrative Re-Assessment/Exam: 03/26/21 16:48 IV was established by EMS machine captain. We infused the liter of NS upon arrival. A stroke code was called by EMS although was not activated at the hospital as the patients last known well was last evening at 2130 and does not appear to have any stroke like symptoms by EMS report. Labs drawn with 2 blood cultures. 2nd liter of fluids LR 1 liter wide open. Ceftriaxone 2grams IVP with concerns of possible sepsis unknown source at this time. CT head cervical spine negative acute findings per radiology. C collar was removed. PT does not complain of cervical pain and was only placed due to the fall and he is constantly pulling and ripping the collar off. Solo to drain bladder and remove urine for sampling. Removed catheter after sample obtained. The patient is still pleasantly confused. constantly thrashing about the bed kicking his legs strong evenly bilaterally. Morphine 2mg IVP. Pt does have a known history of chronic back pain. Laboratory evaluation with a WBC of 20.3, hemoglobin 13.4, platelet count 334. He has normal neutrophils with 7% bands. CMP with a glucose of 125 potassium 3.4 AST 39. His lactic acid is normal at 2.0. His CK is elevated at 820. Troponin is negative at 13. CRP is 10.4. Lipase is normal. Procalcitonin is negative at 0.05. Urinalysis does show a small amount of blood ketones trace protein this is a catheterized sample. Urine drug screen positive for oxycodone which patient is prescribed chronically. His alcohol is negative at less than three. His tetanus shot was updated in the emergency department. Eventually some family members did arrive and stated that they went through his meds and he has not taken most of his meds since . He is chronically on oxycodone four times a day for chronic back pain. He did seem to calm and relax more in the emergency department after couple doses of morphine in the ER. I am not finding any organic cause specifically at this time for his acute encephalopathy. CT of his head is normal. There is no pneumonia. There is no urinary tract infection. He does have a cellulitis of the right lower extremity although it is not severe enough in my mind to cause encephalopathy. I wonder if this does not have some aspect of him being off of his chronic medication and going through somewhat of withdrawal in the presence of dehydration rhabdomyolysis. I called and spoke with Dr. Neal who is his PCP from [facility]. HPI ER COURSE findings and concerns were relayed to her. She did not feel this patient met acute criteria and should be admitted OBS. I spoke with social work and this patient clearly meets inpatient criteria. [facility] in [place] contacted although they do not have any beds available. I do not feel that it is appropriate to admit this patient obs as he is clearly an inpatient candidate not only with his acute encephalopathy of unknown cause he also has rhabdomyolysis cellulitis leukocytosis. I will admit him into inpatient management here under my services out of the emergency department. I am unable to determine CODE STATUS at this time as the patient is encephalopathic. The family that is at the bedside does not feel comfortable making that decision. He will be a full code. Departure - Departure Time of Disposition: 19:00 Disposition: Admitted As Inpatient 68 Clinical Impression: Encephalopathy acute, Cellulitis of right foot, Hypokalemia Leukocytosis Qualifiers: Leukocytosis type: bandemia Qualified Code(s): D72.825 - Bandemia Rhabdomyolysis Qualifiers: Rhabdomyolysis type: traumatic Encounter type: initial encounter Qualified Code(s): T79.6XXA - Traumatic ischemia of muscle, initial encounter - Discharge Information Sepsis Event Note (ED) - Focused Exam Vital Signs: Vital Signs Temp Pulse Resp BP Pulse Ox 03/26/21 17:05 98.7 F 107 H 18 161/78 H 96 03/26/21 16:00 96 20 158/88 H 96 03/26/21 15:08 97.8 F 95 20 153/131 H 97 - Problem List & Annotations (1) Encephalopathy acute SNOMED Code(s): 89865565, [id number] Code(s): G93.40 - ENCEPHALOPATHY, UNSPECIFIED Status: Acute Current Visit: Yes Annotation/Comment:: Unsure of the acute cause of his encephalopathy/confusion. This could be multifactorial. Could be cellulitic in nature due to the infection in his foot. It could also be due to his long-term narcotic usage that he has not been taking as he has been laying on the floor. CT of the head was unremarkable. Ammonia was normal venous blood gases as well. Could also be due to dehydration and/or rhabdomyolysis. We will continue to monitor and treat the other concerns get him back on his home medications and see if the patient starts to clear. (2) Rhabdomyolysis SNOMED Code(s): 534001861 Code(s): M62.82 - RHABDOMYOLYSIS Status: Acute Current Visit: Yes Annotation/Comment:: Mild rhabdomyolysis without any acute kidney injury. This is most likely due to the laying on the floor most of the night following his fall. We will gently hydrate him over the night. Repeat his CPK in the morning. Urine myoglobin pending. We will also hold his a atorvastatin in the presence of rhabdomyolysis. (3) Leukocytosis SNOMED Code(s): 150008982, 600599049 Code(s): D72.829 - ELEVATED WHITE BLOOD CELL COUNT, UNSPECIFIED Status: Acute Current Visit: Yes Annotation/Comment:: His white blood cell count is quite elevated at 20. His lactic is unknown remarkable as well as his procalcitonin. He has a normal differential. He has no fever. He does have a cellulitis of the right foot which could be the cause of his leukocytosis. Blood cultures are pending. Covid is negative. We will trend his labs daily. Follow cultures if anything comes back positive. (4) Cellulitis of right foot SNOMED Code(s): 408932017 Code(s): L03.115 - CELLULITIS OF RIGHT LOWER LIMB Status: Acute Current Visit: Yes Annotation/Comment:: He has an avulsion type injury of the toenail of the right great foot. There is also some localized cellulitis of the distal right foot. This could be the cause of his leukocytosis although it is not severe enough to see a white blood cell count of 20 and/or to cause encephalopathy. Blood cultures are pending. We will treat him with Rocephin 1 g IV push every 12 hours. He initially received 2 g in the emergency department initially for concerns of bacteremia/sepsis. (5) Dehydration SNOMED Code(s): 18700809 Code(s): E86.0 - DEHYDRATION Status: Acute Current Visit: Yes Annotation/Comment:: Dehydration by exam. Normal kidney function. We will hydrate him gently during the night with a history of coronary artery disease. Normal saline with 20 of KCl at 100 mils an hour. We will watch closely as I's and O's. Daily labs to watch kidney function. (6) CAD (coronary artery disease) SNOMED Code(s): 56904967 Code(s): I25.10 - ATHSCL HEART DISEASE OF [place] CORONARY ARTERY W/O ANG PCTRS Status: Acute Current Visit: Yes Annotation/Comment:: His EKG is unremarkable in the emergency department. His troponin is negative. He is encephalopathic I am unable to determine if he has any other signs of acute coronary symptoms. We will continue his home medications to include his isosorbide aspirin amlodipine (7) HTN (hypertension) SNOMED Code(s): 02954816 Code(s): I10 - ESSENTIAL (PRIMARY) HYPERTENSION Status: Acute Current Visit: Yes Annotation/Comment:: Blood pressure in the emergency department 143/83. We will continue his home medications and monitor. (8) COPD (chronic obstructive pulmonary disease) SNOMED Code(s): 91308356 Code(s): J44.9 - CHRONIC OBSTRUCTIVE PULMONARY DISEASE, UNSPECIFIED Status: Acute Current Visit: Yes Annotation/Comment:: He is not showing any signs of COPD exacerbation in the emergency department. He does not have any treatment at home for his COPD. We will continue to monitor and treat accordingly. (9) Chronic back pain SNOMED Code(s): 570746197 Code(s): M54.9 - DORSALGIA, UNSPECIFIED; G89.29 - OTHER CHRONIC PAIN Status: Acute Current Visit: Yes Annotation/Comment:: Patient has history of chronic neck and back pain. For which she is on oxycodone 10 mg p.o. 4 times daily. He has missed multiple doses over the past couple of days. X-rays of the thoracic spine shows mild age-indeterminate T9, T9 8 T10 compression fractures appear likely chronic. CT of the neck per radiology shows no acute pathology as of chronic findings. We will continue his oxycodone 10 mg p.o. 4 times daily and have as needed dilaudid as well. (10) Hypokalemia SNOMED Code(s): 43588629 Code(s): E87.6 - HYPOKALEMIA Status: Acute Current Visit: Yes Annotation/Comment:: His potassium is mildly low at 3.4. We will gently hydrate him with normal saline 20 KCl at 100 mils during the night repeat labs in the morning. EKG was normal. (11) Nail avulsion, toe SNOMED Code(s): 973359993 Code(s): S91.209A - UNSP OPEN WOUND OF UNSP TOE(S) W DAMAGE TO NAIL, INIT ENCNTR Status: Acute Current Visit: Yes Annotation/Comment:: Tetanus was updated in the emergency department. The entirety of the nail plate has been self avulsed prior to arrival in the emergency department. Will cleanse twice daily with her hexedine and sterile water. Bacitracin and bandage until healed. There is no repair needed of the nail matrix at this time. (12) Abrasions of multiple sites SNOMED Code(s): 996491081, 987328259 Code(s): T07.XXXA - UNSPECIFIED MULTIPLE INJURIES, INITIAL ENCOUNTER Statu s: Acute Current Visit: Yes Annotation/Comment:: Patient has multiple scattered superficial abrasions/ulcerations primarily on the bony prominences of the toes of the feet as well as the distal tib-fib regions. No signs of infection at this time. This is most likely caused due to him laying on the ground and thrashing over the past 12 hours or so. There is no site of infection although he is covered with Rocephin and his tetanus immunization has been updated. We will cleanse twice daily and watch for signs of infection. - Problem List Review Problem List Initiated/Reviewed/Updated: Yes - My Orders Last 24 Hours: My Active Orders 03/26/21 15:07 Blood Culture x2 Reflex Set [OM.PC] Stat 03/26/21 15:47 CULTURE BLOOD [BC] Stat 03/26/21 15:54 CULTURE BLOOD [BC] Stat 03/26/21 16:40 MYOGLOBIN, URINE Stat 03/26/21 17:30 Sodium Chloride 0.9% [Normal Saline] 1,000 ml IV ASDIRECTED - Assessment/Plan Last 24 Hours: My Active Orders 03/26/21 15:07 Blood Culture x2 Reflex Set [OM.PC] Stat 03/26/21 15:47 CULTURE BLOOD [BC] Stat 03/26/21 15:54 CULTURE BLOOD [BC] Stat 03/26/21 16:40 MYOGLOBIN, URINE Stat 03/26/21 17:30 Sodium Chloride 0.9% [Normal Saline] 1,000 ml IV ASDIRECTED Assessment:: A/P Patient will be placed into inpatient care with the above concerns under my service. Needs IV hydration multiple repeat labs. IV antibiotics due to cellulitis and rhabdomyolysis most likely due to the fall and laying on the floor during the night. I do not anticipate any further need than hopefully 2 overnights in the hospital although unsure of his cause of encephalopathy/confusion at this time. Unable to determine code status due to encephalopathy so will be full code at this time. VTE: Lovenox 40mg Subcut qd. Sepsis: Elevated WBC although no shift normal differential and normal LACTIC acid and procalcitonin. BLood cultures pending. Will monitor with labs and vitals. Does have cellulitis to the right foot although not severe. Code Status: Full Social work PT/OT to evaluate for discharge planning. Continue home therapies.
[2021-03-26] MEDS ORDERED: Morphine 2 MG/ML SYRINGE IVPUSH ONE (16:33)
[2021-03-26 16:48] LABS: BARBITURATE SCREEN,URINE NEGATIVE (NEGATIVE); BENZODIAZEPINES SCREEN,URINE NEGATIVE (NEGATIVE); BUPRENORPHINE SCREEN,URINE NEGATIVE (NEGATIVE); METHAMPHETAMINE SCREEN, URINE NEGATIVE (NEGATIVE); THC SCREEN,URINE 50 NG/ML NEGATIVE (NEGATIVE)
--- NOTE | 2021-03-26 16:50 | CR ---
[id number] RAD/RAD Thoracic Spine 3V EXAM: RAD Thoracic Spine 3V INDICATION: Fall with acute on chronic thoracic spine pain. Confusion and limited cooperation. COMPARISON: None. DISCUSSION: Mild T8, T9 and T10 compression fractures appear likely chronic. Partially imaged thoracolumbar fusion hardware extending from the T11 level beyond the [id number] of this study. Mild to moderate spondylosis throughout the thoracic spine. Moderate convex right curvature centered in the lower thoracic spine. IMPRESSION: 1. Mild age-indeterminate T8, T9 and T10 compression fractures. 2. Moderate thoracic spondylosis. James Ríos MD 03/26/21 0948 Thank you for allowing us to participate in the care of your patient.
[2021-03-26] MEDS ORDERED: Morphine 4 MG/ML Syringe IVPUSH ONE (16:52)
[2021-03-26] MEDS ORDERED: Sodium Chloride 0.9% 1,000 ML IV SCH (17:30)
[2021-03-26 17:39] LABS: CORONAVIRUS COVID-19 NAA NEGATIVE (NEGATIVE); RESPIRATORY SYNCYTIAL VIR NAA NEGATIVE (NEGATIVE)
[2021-03-26] MEDS ORDERED: Diphtheria,Pertussis(Acell),Tetanus Vaccine 0.5 ML Syringe IM ONE (18:05)
[2021-03-26] MEDS ORDERED: Polyethylene Glycol 3350 Powder 17 GM Packet PO PRN (20:08)
[2021-03-26] MEDS ORDERED: oxyCODONE 5 MG Tab PO PRN (20:24)
[2021-03-26] MEDS ORDERED: NS + KCl 20mEq/L 1,000 ML IV SCH (20:30)
[2021-03-27] MEDS: HYDROmorphone 0.5 MG/0.5 ML Syringe IV PRN ×3 (00:11→21:42)
[2021-03-27 07:32] LABS: CHLORIDE,CL 108 mmol/L (98-107); SODIUM,NA 143 mmol/L (136-145)
[2021-03-27 07:34] LABS: ANION GAP 11.9 mmol/L (5-15)
[2021-03-27] MEDS: Carvedilol 12.5 MG Tab PO SCH ×2 (08:09→17:22)
[2021-03-27] MEDS: Aspirin 81 MG Tab.EC PO SCH (08:09)
[2021-03-27] MEDS: Sertraline 100 MG Tab PO SCH (08:09)
[2021-03-27] MEDS: ARIPiprazole 5 MG Tab PO SCH (08:09)
[2021-03-27] MEDS: Isosorbide Mononitrate 60 MG Tab.ER PO SCH (08:09)
[2021-03-27] MEDS: amLODIPine 5 MG Tab PO SCH (08:10)
[2021-03-27] MEDS ORDERED: oxyCODONE 5 MG Tab PO PRN (09:19)
[2021-03-27] MEDS: oxyCODONE 5 MG Tab PO PRN ×2 (10:30→16:15)
[2021-03-27] MEDS: Enoxaparin 40 MG/0.4 ML Syringe SUBCUT SCH ×2 (11:58→21:35)
[2021-03-27] MEDS: Lactated Ringers 1,000 ML IV SCH ×2 (13:06→21:33)
--- NOTE | 2021-03-27 13:57 | PCM.PN ---
- General Info Date of Service: 03/27/21 Admission Dx/Problem (Free Text): Acute encephalopathy/confusion Cellulitis right foot Rhabdo multiple abrasions dehydration leukocytosis Subjective Update: The patient today is quite a bit better. He is alert appropriate. He is able to give in HPI now. He stated that on Thursday or of last week when he was letting his dog out his right foot got caught in a rug and he fell landing on his right shoulder. He did not hit his head there was no loss of consciousness. He avulsed his right toenail for which he removed on his own. The next day or so he noted some redness and swelling to his right foot. He has some chronic back pain with rodding which until about September or so he had paresthesias of his bilateral upper extremities and decreased function which had been improving since September and is been the best it has been since his surgery. After his fall onto his right shoulder he had return of the paresthesias to his bilateral arms. He had decreased movement. He has no pain that is new than his chronic pain. He has no paresthesias of the lower extremities. He is having some difficulty with holding a glass. Functional Status: Reports: Pain Controlled - Review of Systems General: Reports: No Symptoms HEENT: Reports: No Symptoms Pulmonary: Reports: No Symptoms Cardiovascular: Reports: No Symptoms Gastrointestinal: Reports: No Symptoms Genitourinary: Reports: No Symptoms Musculoskeletal: Reports: Other (As above) Skin: Reports: No Symptoms Neurological: Reports: No Symptoms (Other than the paresthesias of his upper extremities.), Paresthesia (Bilateral upper extremities) Psychiatric: Reports: No Symptoms - Patient Data Vitals - Most Recent: Last Vital Signs Temp 97.6 F 03/27/21 10:00 Pulse 59 L 03/27/21 10:00 Resp 12 03/27/21 10:00 BP 92/56 L 03/27/21 10:00 Pulse Ox 96 03/27/21 10:00 Weight - Most Recent: 164 lb 6.4 oz I&O - Last 24 Hours: Intake & Output 03/26/21 03/27/21 03/27/21 22:59 06:59 14:59 Intake Total 640 240 Balance 640 240 Imaging Impressions - Last 24 Hours: X-ray of the right foot per radiology no fracture dislocation or acute osseous abnormality. Generalized osseous demineralization. Mild degenerative changes seen throughout the right foot most pronounced in the first metatarsophalangeal and interphalangeal joints. 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 Findings are nonspecific can be seen with pneumonia. Including COVID-19 pneumonia. Thoracic spondylosis with degenerative disc disease chronic appearing mild compression deformities of T10 and T11 no evidence of acute fracture compression deformity fusion hardware at T11 extending beyond the [id number] of this examination right fixation screw is possibly fractured at the base. Lab Results Last 24 Hours: Laboratory Results - last 24 hr 03/26/21 03/26/21 03/26/21 Range/Units 15:47 15:47 15:47 WBC 20.3 H* (4.0-10.0) x10^3/uL RBC 4.39 L (4.5-6.0) x10^6/uL Hgb 13.4 L (14.0-18.0) g/dL Hct 40.1 (40.0-52.0) % MCV 91.3 (78.0-93.0) fL MCH 30.5 (26.0-32.0) pg MCHC 33.4 (32.0-36.0) g/dL RDW Coeff of Jerome 13.2 (10.0-15.0) % Plt Count 334 (130-400) x10^3/uL Add Manual Diff Yes Neutrophils % (Manual) 78 (50-80) % Band Neutrophils % 7 H (0-6) % Lymphocytes % (Manual) 3 L (25-50) % Reactive Lymphs % 2 H (0) % Monocytes % (Manual) 8 (2-11) % Basophils % (Manual) 1 (0-1) % Metamyelocytes % 1 H (0) % Immature Gran # 0.20 H (0.00-0.07) X10^3/Ul Absolute Neutrophils 17.3 H (1.8-7.7) x10^3/uL Lymphocytes # (Manual) 1.0 (1.0-4.8) x10^3/uL Monocytes # (Manual) 1.6 H (0.0-0.8) x10^3/uL Basophils # (Manual) 0.2 (0.0-0.2) x10^3/uL Vacuolated Monocytes 1+ slight H Platelet Estimate Adequate POC VBG pH (7.33-7.43) pH POC VBG pCO2 (41-51) mmHg POC VBG pO2 mmHg POC VBG HCO3 (22-29) mmol/L POC Venous O2 Sat % VBG Base Excess (-(2)-3) mmol/L POC FiO2 Sodium 141 (136-145) mmol/L Potassium 3.4 L (3.5-5.1) mmol/L Chloride 106 (98-107) mmol/L Carbon Dioxide 26 (21-32) mmol/L POC Venous Total CO2 (23-30) mmol/L Anion Gap 12.4 (5-15) mmol/L BUN 15 (7-18) mg/dL Creatinine 0.7 (0.70-1.30) mg/dL Est Cr Clr Drug Dosing TNP Estimated GFR (MDRD) > 60 Glucose 125 H (70-99) mg/dL Lactic Acid 2.0 (0.4-2.0) mmol/L Calcium 8.7 (8.5-10.1) mg/dL Corrected Calcium 9.5 (8.5-10.1) mg/dL Total Bilirubin 0.9 (0.2-1.0) mg/dL AST 39 H (15-37) U/L ALT 27 (16-63) U/L Alkaline Phosphatase 82 (46-116) U/L Ammonia (19-54) ug/dL Creatine Kinase (39-308) U/L Troponin I High Sens 13 (<=76) ng/L C-Reactive Protein 10.4 H (<=0.9) mg/dL Total Protein 6.2 L (6.4-8.2) g/dL Albumin 3.0 L (3.4-5.0) g/dL Globulin 3.2 Albumin/Globulin Ratio 0.94 Lipase 93 (73-393) U/L Procalcitonin (0.1-0.50) ng/mL Urine Color (YELLOW) Urine Appearance (CLEAR) Urine pH (5.0-8.0) Ur Specific [place] Urine Protein (NEGATIVE) mg/dL Urine Glucose (UA) (NEGATIVE) mg/dL Urine Ketones (NEGATIVE) mg/dL Urine Occult Blood (NEGATIVE) Urine Nitrite (NEGATIVE) Urine Bilirubin (NEGATIVE) Urine Urobilinogen (0.2) EU/dL Ur Leukocyte Esterase (NEGATIVE) U Hyaline Cast (Auto) Urine RBC (NOT SEEN) /HPF Urine WBC (NOT SEEN) /HPF Ur Squamous Epith Cells (NOT SEEN) /HPF Urine Bacteria (NOT SEEN) /HPF Urine Mucus (NOT SEEN) /LPF Urine Opiates Screen (NEGATIVE) Ur Buprenorphine Scrn (NEGATIVE) Ur Oxycodone Screen (NEGATIVE) Urine Methadone Screen (NEGATIVE) Ur Barbiturates Screen (NEGATIVE) Ur Phencyclidine Scrn (NEGATIVE) Ur Amphetamine Screen (NEGATIVE) U Methamphetamines Scrn (NEGATIVE) Urine MDMA Screen (NEGATIVE) U Benzodiazepines Scrn (NEGATIVE) U Cocaine Metab Screen (NEGATIVE) U Marijuana (THC) Screen (NEGATIVE) Ethyl Alcohol < 3 (0-3) mg/dL Influenza Type A RNA (NEGATIVE) RSV RNA (INAAT) (NEGATIVE) Influenza Type B RNA (NEGATIVE) SARS-CoV-2 RNA (FAREED) (NEGATIVE) 03/26/21 03/26/21 03/26/21 Range/Units 15:47 15:47 16:40 WBC (4.0-10.0) x10^3/uL RBC (4.5-6.0) x10^6/uL Hgb (14.0-18.0) g/dL Hct (40.0-52.0) % MCV (78.0-93.0) fL MCH (26.0-32.0) pg MCHC (32.0-36.0) g/dL RDW Coeff of Jerome (10.0-15.0) % Plt Count (130-400) x10^3/uL Add Manual Diff Neutrophils % (Manual) (50-80) % Band Neutrophils % (0-6) % Lymphocytes % (Manual) (25-50) % Reactive Lymphs % (0) % Monocytes % (Manual) (2-11) % Basophils % (Manual) (0-1) % Metamyelocytes % (0) % Immature Gran # (0.00-0.07) X10^3/Ul Absolute Neutrophils (1.8-7.7) x10^3/uL Lymphocytes # (Manual) (1.0-4.8) x10^3/uL Monocytes # (Manual) (0.0-0.8) x10^3/uL Basophils # (Manual) (0.0-0.2) x10^3/uL Vacuolated Monocytes Platelet Estimate POC VBG pH (7.33-7.43) pH POC VBG pCO2 (41-51) mmHg POC VBG pO2 mmHg POC VBG HCO3 (22-29) mmol/L POC Venous O2 Sat % VBG Base Excess (-(2)-3) mmol/L POC FiO2 Sodium (136-145) mmol/L Potassium (3.5-5.1) mmol/L Chloride (98-107) mmol/L Carbon Dioxide (21-32) mmol/L POC Venous Total CO2 (23-30) mmol/L Anion Gap (5-15) mmol/L BUN (7-18) mg/dL Creatinine (0.70-1.30) mg/dL Est Cr Clr Drug Dosing Estimated GFR (MDRD) Glucose (70-99) mg/dL Lactic Acid (0.4-2.0) mmol/L Calcium (8.5-10.1) mg/dL Corrected Calcium (8.5-10.1) mg/dL Total Bilirubin (0.2-1.0) mg/dL AST (15-37) U/L ALT (16-63) U/L Alkaline Phosphatase (46-116) U/L Ammonia (19-54) ug/dL Creatine Kinase 820 H* (39-308) U/L Troponin I High Sens (<=76) ng/L C-Reactive Protein (<=0.9) mg/dL Total Protein (6.4-8.2) g/dL Albumin (3.4-5.0) g/dL Globulin Albumin/Globulin Ratio Lipase (73-393) U/L Procalcitonin <0.05 L (0.1-0.50) ng/mL Urine Color Yellow (YELLOW) Urine Appearance Clear (CLEAR) Urine pH 6.0 (5.0-8.0) Ur Specific [place] 1.020 Urine Protein Trace H (NEGATIVE) mg/dL Urine Glucose (UA) Negative (NEGATIVE) mg/dL Urine Ketones 15 H (NEGATIVE) mg/dL Urine Occult Blood Small H (NEGATIVE) Urine Nitrite Negative (NEGATIVE) Urine Bilirubin Negative (NEGATIVE) Urine Urobilinogen 1.0 (0.2) EU/dL Ur Leukocyte Esterase Negative (NEGATIVE) U Hyaline Cast (Auto) Few Urine RBC 5-10 H (NOT SEEN) /HPF Urine WBC 0-5 (NOT SEEN) /HPF Ur Squamous Epith Cells Rare (NOT SEEN) /HPF Urine Bacteria Not seen (NOT SEEN) /HPF Urine Mucus Not seen (NOT SEEN) /LPF Urine Opiates Screen (NEGATIVE) Ur Buprenorphine Scrn (NEGATIVE) Ur Oxycodone Screen (NEGATIVE) Urine Methadone Screen (NEGATIVE) Ur Barbiturates Screen (NEGATIVE) Ur Phencyclidine Scrn (NEGATIVE) Ur Amphetamine Screen (NEGATIVE) U Methamphetamines Scrn (NEGATIVE) Urine MDMA Screen (NEGATIVE) U Benzodiazepines Scrn (NEGATIVE) U Cocaine Metab Screen (NEGATIVE) U Marijuana (THC) Screen (NEGATIVE) Ethyl Alcohol (0-3) mg/dL Influenza Type A RNA (NEGATIVE) RSV RNA (INAAT) (NEGATIVE) Influenza Type B RNA (NEGATIVE) SARS-CoV-2 RNA (FAREED) (NEGATIVE) 03/26/21 03/26/21 03/26/21 Range/Units 16:40 16:50 17:32 WBC (4.0-10.0) x10^3/uL RBC (4.5-6.0) x10^6/uL Hgb (14.0-18.0) g/dL Hct (40.0-52.0) % MCV (78.0-93.0) fL MCH (26.0-32.0) pg MCHC (32.0-36.0) g/dL RDW Coeff of Jerome (10.0-15.0) % Plt Count (130-400) x10^3/uL Add Manual Diff Neutrophils % (Manual) (50-80) % Band Neutrophils % (0-6) % Lymphocytes % (Manual) (25-50) % Reactive Lymphs % (0) % Monocytes % (Manual) (2-11) % Basophils % (Manual) (0-1) % Metamyelocytes % (0) % Immature Gran # (0.00-0.07) X10^3/Ul Absolute Neutrophils (1.8-7.7) x10^3/uL Lymphocytes # (Manual) (1.0-4.8) x10^3/uL Monocytes # (Manual) (0.0-0.8) x10^3/uL Basophils # (Manual) (0.0-0.2) x10^3/uL Vacuolated Monocytes Platelet Estimate POC VBG pH (7.33-7.43) pH POC VBG pCO2 (41-51) mmHg POC VBG pO2 mmHg POC VBG HCO3 (22-29) mmol/L POC Venous O2 Sat % VBG Base Excess (-(2)-3) mmol/L POC FiO2 Sodium (136-145) mmol/L Potassium (3.5-5.1) mmol/L Chloride (98-107) mmol/L Carbon Dioxide (21-32) mmol/L POC Venous Total CO2 (23-30) mmol/L Anion Gap (5-15) mmol/L BUN (7-18) mg/dL Creatinine (0.70-1.30) mg/dL Est Cr Clr Drug Dosing Estimated GFR (MDRD) Glucose (70-99) mg/dL Lactic Acid (0.4-2.0) mmol/L Calcium (8.5-10.1) mg/dL Corrected Calcium (8.5-10.1) mg/dL Total Bilirubin (0.2-1.0) mg/dL AST (15-37) U/L ALT (16-63) U/L Alkaline Phosphatase (46-116) U/L Ammonia 35 (19-54) ug/dL Creatine Kinase (39-308) U/L Troponin I High Sens (<=76) ng/L C-Reactive Protein (<=0.9) mg/dL Total Protein (6.4-8.2) g/dL Albumin (3.4-5.0) g/dL Globulin Albumin/Globulin Ratio Lipase (73-393) U/L Procalcitonin (0.1-0.50) ng/mL Urine Color (YELLOW) Urine Appearance (CLEAR) Urine pH (5.0-8.0) Ur Specific [place] Urine Protein (NEGATIVE) mg/dL Urine Glucose (UA) (NEGATIVE) mg/dL Urine Ketones (NEGATIVE) mg/dL Urine Occult Blood (NEGATIVE) Urine Nitrite (NEGATIVE) Urine Bilirubin (NEGATIVE) Urine Urobilinogen (0.2) EU/dL Ur Leukocyte Esterase (NEGATIVE) U Hyaline Cast (Auto) Urine RBC (NOT SEEN) /HPF Urine WBC (NOT SEEN) /HPF Ur Squamous Epith Cells (NOT SEEN) /HPF Urine Bacteria (NOT SEEN) /HPF Urine Mucus (NOT SEEN) /LPF Urine Opiates Screen Negative (NEGATIVE) Ur Buprenorphine Scrn Negative (NEGATIVE) Ur Oxycodone Screen Positive H (NEGATIVE) Urine Methadone Screen Negative (NEGATIVE) Ur Barbiturates Screen Negative (NEGATIVE) Ur Phencyclidine Scrn Negative (NEGATIVE) Ur Amphetamine Screen Negative (NEGATIVE) U Methamphetamines Scrn Negative (NEGATIVE) Urine MDMA Screen Negative (NEGATIVE) U Benzodiazepines Scrn Negative (NEGATIVE) U Cocaine Metab Screen Negative (NEGATIVE) U Marijuana (THC) Screen Negative (NEGATIVE) Ethyl Alcohol (0-3) mg/dL Influenza Type A RNA Negative (NEGATIVE) RSV RNA (INAAT) Negative (NEGATIVE) Influenza Type B RNA Negative (NEGATIVE) SARS-CoV-2 RNA (FAREED) Negative (NEGATIVE) 03/26/21 03/27/21 03/27/21 Range/Units 17:40 06:35 06:35 WBC 20.3 H* (4.0-10.0) x10^3/uL RBC 4.45 L (4.5-6.0) x10^6/uL Hgb 13.5 L (14.0-18.0) g/dL Hct 41.1 (40.0-52.0) % MCV 92.4 (78.0-93.0) fL MCH 30.3 (26.0-32.0) pg MCHC 32.8 (32.0-36.0) g/dL RDW Coeff of Jerome 13.3 (10.0-15.0) % Plt Count 326 (130-400) x10^3/uL Add Manual Diff Yes Neutrophils % (Manual) 84 H (50-80) % Band Neutrophils % (0-6) % Lymphocytes % (Manual) 9 L (25-50) % Reactive Lymphs % (0) % Monocytes % (Manual) 7 (2-11) % Basophils % (Manual) (0-1) % Metamyelocytes % (0) % Immature Gran # (0.00-0.07) X10^3/Ul Absolute Neutrophils 17.1 H (1.8-7.7) x10^3/uL Lymphocytes # (Manual) 1.8 (1.0-4.8) x10^3/uL Monocytes # (Manual) 1.4 H (0.0-0.8) x10^3/uL Basophils # (Manual) (0.0-0.2) x10^3/uL Vacuolated Monocytes Platelet Estimate Adequate POC VBG pH 7.46 H (7.33-7.43) pH POC VBG pCO2 33 L (41-51) mmHg POC VBG pO2 40 mmHg POC VBG HCO3 23 (22-29) mmol/L POC Venous O2 Sat 78 % VBG Base Excess -1 (-(2)-3) mmol/L POC FiO2 21 Sodium 143 (136-145) mmol/L Potassium 3.9 (3.5-5.1) mmol/L Chloride 108 H (98-107) mmol/L Carbon Dioxide 27 (21-32) mmol/L POC Venous Total CO2 24 (23-30) mmol/L Anion Gap 11.9 (5-15) mmol/L BUN 14 (7-18) mg/dL Creatinine 0.8 (0.70-1.30) mg/dL Est Cr Clr Drug Dosing 79.56 Estimated GFR (MDRD) > 60 Glucose 105 H (70-99) mg/dL Lactic Acid (0.4-2.0) mmol/L Calcium 8.6 (8.5-10.1) mg/dL Corrected Calcium (8.5-10.1) mg/dL Total Bilirubin (0.2-1.0) mg/dL AST (15-37) U/L ALT (16-63) U/L Alkaline Phosphatase (46-116) U/L Ammonia (19-54) ug/dL Creatine Kinase 2189 H* (39-308) U/L Troponin I High Sens (<=76) ng/L C-Reactive Protein 22.8 H (<=0.9) mg/dL Total Protein (6.4-8.2) g/dL Albumin (3.4-5.0) g/dL Globulin Albumin/Globulin Ratio Lipase (73-393) U/L Procalcitonin (0.1-0.50) ng/mL Urine Color (YELLOW) Urine Appearance (CLEAR) Urine pH (5.0-8.0) Ur Specific [place] Urine Protein (NEGATIVE) mg/dL Urine Glucose (UA) (NEGATIVE) mg/dL Urine Ketones (NEGATIVE) mg/dL Urine Occult Blood (NEGATIVE) Urine Nitrite (NEGATIVE) Urine Bilirubin (NEGATIVE) Urine Urobilinogen (0.2) EU/dL Ur Leukocyte Esterase (NEGATIVE) U Hyaline Cast (Auto) Urine RBC (NOT SEEN) /HPF Urine WBC (NOT SEEN) /HPF Ur Squamous Epith Cells (NOT SEEN) /HPF Urine Bacteria (NOT SEEN) /HPF Urine Mucus (NOT SEEN) /LPF Urine Opiates Screen (NEGATIVE) Ur Buprenorphine Scrn (NEGATIVE) Ur Oxycodone Screen (NEGATIVE) Urine Methadone Screen (NEGATIVE) Ur Barbiturates Screen (NEGATIVE) Ur Phencyclidine Scrn (NEGATIVE) Ur Amphetamine Screen (NEGATIVE) U Methamphetamines Scrn (NEGATIVE) Urine MDMA Screen (NEGATIVE) U Benzodiazepines Scrn (NEGATIVE) U Cocaine Metab Screen (NEGATIVE) U Marijuana (THC) Screen (NEGATIVE) Ethyl Alcohol (0-3) mg/dL Influenza Type A RNA (NEGATIVE) RSV RNA (INAAT) (NEGATIVE) Influenza Type B RNA (NEGATIVE) SARS-CoV-2 RNA (FAREED) (NEGATIVE) 03/27/21 03/27/21 Range/Units 06:35 06:35 WBC (4.0-10.0) x10^3/uL RBC (4.5-6.0) x10^6/uL Hgb (14.0-18.0) g/dL Hct (40.0-52.0) % MCV (78.0-93.0) fL MCH (26.0-32.0) pg MCHC (32.0-36.0) g/dL RDW Coeff of Jerome (10.0-15.0) % Plt Count (130-400) x10^3/uL Add Manual Diff Neutrophils % (Manual) (50-80) % Band Neutrophils % (0-6) % Lymphocytes % (Manual) (25-50) % Reactive Lymphs % (0) % Monocytes % (Manual) (2-11) % Basophils % (Manual) (0-1) % Metamyelocytes % (0) % Immature Gran # (0.00-0.07) X10^3/Ul Absolute Neutrophils (1.8-7.7) x10^3/uL Lymphocytes # (Manual) (1.0-4.8) x10^3/uL Monocytes # (Manual) (0.0-0.8) x10^3/uL Basophils # (Manual) (0.0-0.2) x10^3/uL Vacuolated Monocytes Platelet Estimate POC VBG pH (7.33-7.43) pH POC VBG pCO2 (41-51) mmHg POC VBG pO2 mmHg POC VBG HCO3 (22-29) mmol/L POC Venous O2 Sat % VBG Base Excess (-(2)-3) mmol/L POC FiO2 Sodium (136-145) mmol/L Potassium (3.5-5.1) mmol/L Chloride (98-107) mmol/L Carbon Dioxide (21-32) mmol/L POC Venous Total CO2 (23-30) mmol/L Anion Gap (5-15) mmol/L BUN (7-18) mg/dL Creatinine (0.70-1.30) mg/dL Est Cr Clr Drug Dosing Estimated GFR (MDRD) Glucose (70-99) mg/dL Lactic Acid 1.8 (0.4-2.0) mmol/L Calcium (8.5-10.1) mg/dL Corrected Calcium (8.5-10.1) mg/dL Total Bilirubin (0.2-1.0) mg/dL AST (15-37) U/L ALT (16-63) U/L Alkaline Phosphatase (46-116) U/L Ammonia (19-54) ug/dL Creatine Kinase (39-308) U/L Troponin I High Sens (<=76) ng/L C-Reactive Protein (<=0.9) mg/dL Total Protein (6.4-8.2) g/dL Albumin (3.4-5.0) g/dL Globulin Albumin/Globulin Ratio Lipase (73-393) U/L Procalcitonin 0.21 (0.1-0.50) ng/mL Urine Color (YELLOW) Urine Appearance (CLEAR) Urine pH (5.0-8.0) Ur Specific [place] Urine Protein (NEGATIVE) mg/dL Urine Glucose (UA) (NEGATIVE) mg/dL Urine Ketones (NEGATIVE) mg/dL Urine Occult Blood (NEGATIVE) Urine Nitrite (NEGATIVE) Urine Bilirubin (NEGATIVE) Urine Urobilinogen (0.2) EU/dL Ur Leukocyte Esterase (NEGATIVE) U Hyaline Cast (Auto) Urine RBC (NOT SEEN) /HPF Urine WBC (NOT SEEN) /HPF Ur Squamous Epith Cells (NOT SEEN) /HPF Urine Bacteria (NOT SEEN) /HPF Urine Mucus (NOT SEEN) /LPF Urine Opiates Screen (NEGATIVE) Ur Buprenorphine Scrn (NEGATIVE) Ur Oxycodone Screen (NEGATIVE) Urine Methadone Screen (NEGATIVE) Ur Barbiturates Screen (NEGATIVE) Ur Phencyclidine Scrn (NEGATIVE) Ur Amphetamine Screen (NEGATIVE) U Methamphetamines Scrn (NEGATIVE) Urine MDMA Screen (NEGATIVE) U Benzodiazepines Scrn (NEGATIVE) U Cocaine Metab Screen (NEGATIVE) U Marijuana (THC) Screen (NEGATIVE) Ethyl Alcohol (0-3) mg/dL Influenza Type A RNA (NEGATIVE) RSV RNA (INAAT) (NEGATIVE) Influenza Type B RNA (NEGATIVE) SARS-CoV-2 RNA (FAREED) (NEGATIVE) [place] Results Last 24 Hours: Microbiology 03/26/21 15:54 Anaerobic Blood Culture - Final Blood - Venous - Lab Draw Med Orders - Current: Current Medications Amitriptyline HCl (Amitriptyline 25 Mg Tab) 50 mg PO BEDTIME [facility] Amlodipine Besylate (Amlodipine 5 Mg Tab) 5 mg PO DAILY [facility] Last Admin: 03/27/21 08:10 Dose: 5 mg Documented by: Aripiprazole (Aripiprazole 5 Mg Tab) 5 mg PO DAILY [facility] Last Admin: 03/27/21 08:09 Dose: 5 mg Documented by: Aspirin (Aspirin 81 Mg Tab.Ec) 81 mg PO DAILY [facility] Last Admin: 03/27/21 08:09 Dose: 81 mg Documented by: Carvedilol (Carvedilol 12.5 Mg Tab) 12.5 mg PO BIDMEALS [facility] Last Admin: 03/27/21 08:09 Dose: 12.5 mg Documented by: Ceftriaxone Sodium (Ceftriaxone 1 Gm Vial) 1 gm IVPUSH BID [facility] Enoxaparin Sodium (Enoxaparin 40 Mg/0.4 Ml Syringe) 40 mg SUBCUT DAILY@1200 [facility] Last Admin: 03/27/21 11:58 Dose: Not Given Documented by: Hydromorphone HCl (Hydromorphone 0.5 Mg/0.5 Ml Syringe) 0.5 mg IV Q4HR PRN PRN Reason: Pain Last Admin: 03/27/21 09:03 Dose: 0.5 mg Documented by: Lactated Ringer's (Ringers, Lactated) 1,000 mls @ 150 mls/hr IV ASDIRECTED [facility] Last Admin: 03/27/21 13:06 Dose: 150 mls/hr Documented by: Isosorbide Mononitrate (Isosorbide Mononitrate 60 Mg Tab.Er) 60 mg PO DAILY [facility] Last Admin: 03/27/21 08:09 Dose: 60 mg Documented by: Lutein/Zeaxanthin [ Lutein-Zeaxanthin 25 -5 Mg Sfgl #Own Med# 1 each PO BID [facility] Oxycodone HCl (Oxycodone 5 Mg Tab) 10 mg PO QID PRN PRN Reason: Pain Last Admin: 03/27/21 10:30 Dose: 10 mg Documented by: Polyethylene Glycol (Polyethylene Glycol 3350 Powder 17 Gm Packet) 17 gm PO DAILY PRN PRN Reason: Constipation Senna/Docusate Sodium (Docusate Sodium/Sennosides 50-8.6 Mg Tab) 1 tab PO BID [facility] Last Admin: 03/27/21 08:08 Dose: 1 tab Documented by: Sertraline HCl (Sertraline 100 Mg Tab) 150 mg PO DAILY [facility] Last Admin: 03/27/21 08:09 Dose: 150 mg Documented by: Discontinued Medications Ceftriaxone Sodium (Ceftriaxone 2 Gm Vial) 2 gm IVPUSH STAT ONE Stop: 03/26/21 15:11 Last Admin: 03/26/21 15:45 Dose: 2 gm Documented by: Ceftriaxone Sodium (Ceftriaxone 1 Gm Vial) 1 gm IVPUSH DAILY [facility] Diphtheria/Tetanus/Acell Pertussis (Diphtheria,Pertussis(Acell),Tetanus Vaccine 0.5 Ml Syringe) 0.5 ml IM .ONCE ONE Stop: 03/26/21 18:06 Last Admin: 03/26/21 18:53 Dose: 0.5 ml Documented by: Lactated Ringer's (Ringers, Lactated) 1,000 mls @ 999 mls/hr IV ONETIME ONE Stop: 03/26/21 16:11 Last Admin: 03/26/21 15:35 Dose: 999 mls/hr Documented by: Sodium Chloride (Normal Saline) 1,000 mls @ 125 mls/hr IV ASDIRECTED [facility] Last Admin: 03/26/21 18:52 Dose: 125 mls/hr Documented by: Potassium Chloride/Sodium Chloride (Normal Saline With 20 Meq Kcl) 1,000 mls @ 100 mls/hr IV ASDIRECTED [facility] Last Admin: 03/27/21 00:13 Dose: 100 mls/hr Documented by: Morphine Sulfate (Morphine 2 Mg/Ml Syringe) 2 mg IVPUSH ONETIME ONE Stop: 03/26/21 16:34 Last Admin: 03/26/21 16:35 Dose: 2 mg Documented by: Morphine Sulfate (Morphine 4 Mg/Ml Syringe) 4 mg IVPUSH ONETIME ONE Stop: 03/26/21 16:53 Last Admin: 03/26/21 16:58 Dose: 4 mg Documented by: Oxycodone HCl (Oxycodone 5 Mg Tab) 10 mg PO QID PRN PRN Reason: Pain Oxycodone HCl (Oxycodone 5 Mg Tab) 10 mg PO QID PRN PRN Reason: Pain Comments:: This patient is hernandez contrast from yesterday. He is sitting at the bedside he is alert appropriate. There is no confusion. He is able to recall the details of everything that happened prior to him presenting to the emergency department. He is able to recall small episodes while he was in the emergency department. He relates that until this morning he was very foggy and confused but he denies any sensation of confusion at this time. - Exam General: Alert, Oriented HEENT: Pupils Equal, Pupils Reactive Neck: Supple Lungs: Clear to Auscultation, Normal Respiratory Effort Cardiovascular: Regular Rate, Regular Rhythm GI/Abdominal Exam: Normal Bowel Sounds, Soft, Non-Tender (Male) Exam: Deferred Back Exam: Other (There is a new development on the posterior on the right just below his scapula there is quite a bit of bruising. There is no subcutaneous emphysema crepitus bony deformities.). No: Paraspinal Tenderness, Vertebral Tenderness Extremities: No Pedal Edema, Normal Capillary Refill. No: Normal Inspection (The redness to the right forefoot has improved by about 50%. There is a dressing in place to the right great toe. The rest of the superficial abrasions appear to be healing well and are noninfectious appearing.), Normal Range of Motion (He has decreased range of motion of his upper extremities. He is unable to abduct his arms above his shoulders. He has difficulty with fine motor such as currently being a glass.) Neurological: Normal Speech, Strength Equal Bilateral, Reflexes Equal Bilateral, Cranial Nerves Intact. No: Other (Does complain of paresthesias to bilateral upper extremities and he has a decreased range of motion.) Psy/Mental Status: Alert, Normal Affect, Normal Mood - Patient Data Lab Results Last 24 hrs: Laboratory Results - last 24 hr 03/26/21 03/26/21 03/26/21 Range/Units 15:47 15:47 15:47 WBC 20.3 H* (4.0-10.0) x10^3/uL RBC 4.39 L (4.5-6.0) x10^6/uL Hgb 13.4 L (14.0-18.0) g/dL Hct 40.1 (40.0-52.0) % MCV 91.3 (78.0-93.0) fL MCH 30.5 (26.0-32.0) pg MCHC 33.4 (32.0-36.0) g/dL RDW Coeff of Jerome 13.2 (10.0-15.0) % Plt Count 334 (130-400) x10^3/uL Add Manual Diff Yes Neutrophils % (Manual) 78 (50-80) % Band Neutrophils % 7 H (0-6) % Lymphocytes % (Manual) 3 L (25-50) % Reactive Lymphs % 2 H (0) % Monocytes % (Manual) 8 (2-11) % Basophils % (Manual) 1 (0-1) % Metamyelocytes % 1 H (0) % Immature Gran # 0.20 H (0.00-0.07) X10^3/Ul Absolute Neutrophils 17.3 H (1.8-7.7) x10^3/uL Lymphocytes # (Manual) 1.0 (1.0-4.8) x10^3/uL Monocytes # (Manual) 1.6 H (0.0-0.8) x10^3/uL Basophils # (Manual) 0.2 (0.0-0.2) x10^3/uL Vacuolated Monocytes 1+ slight H Platelet Estimate Adequate POC VBG pH (7.33-7.43) pH POC VBG pCO2 (41-51) mmHg POC VBG pO2 mmHg POC VBG HCO3 (22-29) mmol/L POC Venous O2 Sat % VBG Base Excess (-(2)-3) mmol/L POC FiO2 Sodium 141 (136-145) mmol/L Potassium 3.4 L (3.5-5.1) mmol/L Chloride 106 (98-107) mmol/L Carbon Dioxide 26 (21-32) mmol/L POC Venous Total CO2 (23-30) mmol/L Anion Gap 12.4 (5-15) mmol/L BUN 15 (7-18) mg/dL Creatinine 0.7 (0.70-1.30) mg/dL Est Cr Clr Drug Dosing TNP Estimated GFR (MDRD) > 60 Glucose 125 H (70-99) mg/dL Lactic Acid 2.0 (0.4-2.0) mmol/L Calcium 8.7 (8.5-10.1) mg/dL Corrected Calcium 9.5 (8.5-10.1) mg/dL Total Bilirubin 0.9 (0.2-1.0) mg/dL AST 39 H (15-37) U/L ALT 27 (16-63) U/L Alkaline Phosphatase 82 (46-116) U/L Ammonia (19-54) ug/dL Creatine Kinase (39-308) U/L Troponin I High Sens 13 (<=76) ng/L C-Reactive Protein 10.4 H (<=0.9) mg/dL Total Protein 6.2 L (6.4-8.2) g/dL Albumin 3.0 L (3.4-5.0) g/dL Globulin 3.2 Albumin/Globulin Ratio 0.94 Lipase 93 (73-393) U/L Procalcitonin (0.1-0.50) ng/mL Urine Color (YELLOW) Urine Appearance (CLEAR) Urine pH (5.0-8.0) Ur Specific [place] Urine Protein (NEGATIVE) mg/dL Urine Glucose (UA) (NEGATIVE) mg/dL Urine Ketones (NEGATIVE) mg/dL Urine Occult Blood (NEGATIVE) Urine Nitrite (NEGATIVE) Urine Bilirubin (NEGATIVE) Urine Urobilinogen (0.2) EU/dL Ur Leukocyte Esterase (NEGATIVE) U Hyaline Cast (Auto) Urine RBC (NOT SEEN) /HPF Urine WBC (NOT SEEN) /HPF Ur Squamous Epith Cells (NOT SEEN) /HPF Urine Bacteria (NOT SEEN) /HPF Urine Mucus (NOT SEEN) /LPF Urine Opiates Screen (NEGATIVE) Ur Buprenorphine Scrn (NEGATIVE) Ur Oxycodone Screen (NEGATIVE) Urine Methadone Screen (NEGATIVE) Ur Barbiturates Screen (NEGATIVE) Ur Phencyclidine Scrn (NEGATIVE) Ur Amphetamine Screen (NEGATIVE) U Methamphetamines Scrn (NEGATIVE) Urine MDMA Screen (NEGATIVE) U Benzodiazepines Scrn (NEGATIVE) U Cocaine Metab Screen (NEGATIVE) U Marijuana (THC) Screen (NEGATIVE) Ethyl Alcohol < 3 (0-3) mg/dL Influenza Type A RNA (NEGATIVE) RSV RNA (INAAT) (NEGATIVE) Influenza Type B RNA (NEGATIVE) SARS-CoV-2 RNA (FAREED) (NEGATIVE) 03/26/21 03/26/21 03/26/21 Range/Units 15:47 15:47 16:40 WBC (4.0-10.0) x10^3/uL RBC (4.5-6.0) x10^6/uL Hgb (14.0-18.0) g/dL Hct (40.0-52.0) % MCV (78.0-93.0) fL MCH (26.0-32.0) pg MCHC (32.0-36.0) g/dL RDW Coeff of Jerome (10.0-15.0) % Plt Count (130-400) x10^3/uL Add Manual Diff Neutrophils % (Manual) (50-80) % Band Neutrophils % (0-6) % Lymphocytes % (Manual) (25-50) % Reactive Lymphs % (0) % Monocytes % (Manual) (2-11) % Basophils % (Manual) (0-1) % Metamyelocytes % (0) % Immature Gran # (0.00-0.07) X10^3/Ul Absolute Neutrophils (1.8-7.7) x10^3/uL Lymphocytes # (Manual) (1.0-4.8) x10^3/uL Monocytes # (Manual) (0.0-0.8) x10^3/uL Basophils # (Manual) (0.0-0.2) x10^3/uL Vacuolated Monocytes Platelet Estimate POC VBG pH (7.33-7.43) pH POC VBG pCO2 (41-51) mmHg POC VBG pO2 mmHg POC VBG HCO3 (22-29) mmol/L POC Venous O2 Sat % VBG Base Excess (-(2)-3) mmol/L POC FiO2 Sodium (136-145) mmol/L Potassium (3.5-5.1) mmol/L Chloride (98-107) mmol/L Carbon Dioxide (21-32) mmol/L POC Venous Total CO2 (23-30) mmol/L Anion Gap (5-15) mmol/L BUN (7-18) mg/dL Creatinine (0.70-1.30) mg/dL Est Cr Clr Drug Dosing Estimated GFR (MDRD) Glucose (70-99) mg/dL Lactic Acid (0.4-2.0) mmol/L Calcium (8.5-10.1) mg/dL Corrected Calcium (8.5-10.1) mg/dL Total Bilirubin (0.2-1.0) mg/dL AST (15-37) U/L ALT (16-63) U/L Alkaline Phosphatase (46-116) U/L Ammonia (19-54) ug/dL Creatine Kinase 820 H* (39-308) U/L Troponin I High Sens (<=76) ng/L C-Reactive Protein (<=0.9) mg/dL Total Protein (6.4-8.2) g/dL Albumin (3.4-5.0) g/dL Globulin Albumin/Globulin Ratio Lipase (73-393) U/L Procalcitonin <0.05 L (0.1-0.50) ng/mL Urine Color Yellow (YELLOW) Urine Appearance Clear (CLEAR) Urine pH 6.0 (5.0-8.0) Ur Specific [place] 1.020 Urine Protein Trace H (NEGATIVE) mg/dL Urine Glucose (UA) Negative (NEGATIVE) mg/dL Urine Ketones 15 H (NEGATIVE) mg/dL Urine Occult Blood Small H (NEGATIVE) Urine Nitrite Negative (NEGATIVE) Urine Bilirubin Negative (NEGATIVE) Urine Urobilinogen 1.0 (0.2) EU/dL Ur Leukocyte Esterase Negative (NEGATIVE) U Hyaline Cast (Auto) Few Urine RBC 5-10 H (NOT SEEN) /HPF Urine WBC 0-5 (NOT SEEN) /HPF Ur Squamous Epith Cells Rare (NOT SEEN) /HPF Urine Bacteria Not seen (NOT SEEN) /HPF Urine Mucus Not seen (NOT SEEN) /LPF Urine Opiates Screen (NEGATIVE) Ur Buprenorphine Scrn (NEGATIVE) Ur Oxycodone Screen (NEGATIVE) Urine Methadone Screen (NEGATIVE) Ur Barbiturates Screen (NEGATIVE) Ur Phencyclidine Scrn (NEGATIVE) Ur Amphetamine Screen (NEGATIVE) U Methamphetamines Scrn (NEGATIVE) Urine MDMA Screen (NEGATIVE) U Benzodiazepines Scrn (NEGATIVE) U Cocaine Metab Screen (NEGATIVE) U Marijuana (THC) Screen (NEGATIVE) Ethyl Alcohol (0-3) mg/dL Influenza Type A RNA (NEGATIVE) RSV RNA (INAAT) (NEGATIVE) Influenza Type B RNA (NEGATIVE) SARS-CoV-2 RNA (FAREED) (NEGATIVE) 03/26/21 03/26/21 03/26/21 Range/Units 16:40 16:50 17:32 WBC (4.0-10.0) x10^3/uL RBC (4.5-6.0) x10^6/uL Hgb (14.0-18.0) g/dL Hct (40.0-52.0) % MCV (78.0-93.0) fL MCH (26.0-32.0) pg MCHC (32.0-36.0) g/dL RDW Coeff of [place] (10.0-15.0) % Plt Count (130-400) x10^3/uL Add Manual Diff Neutrophils % (Manual) (50-80) % Band Neutrophils % (0-6) % Lymphocytes % (Manual) (25-50) % Reactive Lymphs % (0) % Monocytes % (Manual) (2-11) % Basophils % (Manual) (0-1) % Metamyelocytes % (0) % Immature Gran # (0.00-0.07) X10^3/Ul Absolute Neutrophils (1.8-7.7) x10^3/uL Lymphocytes # (Manual) (1.0-4.8) x10^3/uL Monocytes # (Manual) (0.0-0.8) x10^3/uL Basophils # (Manual) (0.0-0.2) x10^3/uL Vacuolated Monocytes Platelet Estimate POC VBG pH (7.33-7.43) pH POC VBG pCO2 (41-51) mmHg POC VBG pO2 mmHg POC VBG HCO3 (22-29) mmol/L POC Venous O2 Sat % VBG Base Excess (-(2)-3) mmol/L POC FiO2 Sodium (136-145) mmol/L Potassium (3.5-5.1) mmol/L Chloride (98-107) mmol/L Carbon Dioxide (21-32) mmol/L POC Venous Total CO2 (23-30) mmol/L Anion Gap (5-15) mmol/L BUN (7-18) mg/dL Creatinine (0.70-1.30) mg/dL Est Cr Clr Drug Dosing Estimated GFR (MDRD) Glucose (70-99) mg/dL Lactic Acid (0.4-2.0) mmol/L Calcium (8.5-10.1) mg/dL Corrected Calcium (8.5-10.1) mg/dL Total Bilirubin (0.2-1.0) mg/dL AST (15-37) U/L ALT (16-63) U/L Alkaline Phosphatase (46-116) U/L Ammonia 35 (19-54) ug/dL Creatine Kinase (39-308) U/L Troponin I High Sens (<=76) ng/L C-Reactive Protein (<=0.9) mg/dL Total Protein (6.4-8.2) g/dL Albumin (3.4-5.0) g/dL Globulin Albumin/Globulin Ratio Lipase (73-393) U/L Procalcitonin (0.1-0.50) ng/mL Urine Color (YELLOW) Urine Appearance (CLEAR) Urine pH (5.0-8.0) Ur Specific [place] Urine Protein (NEGATIVE) mg/dL Urine Glucose (UA) (NEGATIVE) mg/dL Urine Ketones (NEGATIVE) mg/dL Urine Occult Blood (NEGATIVE) Urine Nitrite (NEGATIVE) Urine Bilirubin (NEGATIVE) Urine Urobilinogen (0.2) EU/dL Ur Leukocyte Esterase (NEGATIVE) U Hyaline Cast (Auto) Urine RBC (NOT SEEN) /HPF Urine WBC (NOT SEEN) /HPF Ur Squamous Epith Cells (NOT SEEN) /HPF Urine Bacteria (NOT SEEN) /HPF Urine Mucus (NOT SEEN) /LPF Urine Opiates Screen Negative (NEGATIVE) Ur Buprenorphine Scrn Negative (NEGATIVE) Ur Oxycodone Screen Positive H (NEGATIVE) Urine Methadone Screen Negative (NEGATIVE) Ur Barbiturates Screen Negative (NEGATIVE) Ur Phencyclidine Scrn Negative (NEGATIVE) Ur Amphetamine Screen Negative (NEGATIVE) U Methamphetamines Scrn Negative (NEGATIVE) Urine MDMA Screen Negative (NEGATIVE) U Benzodiazepines Scrn Negative (NEGATIVE) U Cocaine Metab Screen Negative (NEGATIVE) U Marijuana (THC) Screen Negative (NEGATIVE) Ethyl Alcohol (0-3) mg/dL Influenza Type A RNA Negative (NEGATIVE) RSV RNA (INAAT) Negative (NEGATIVE) Influenza Type B RNA Negative (NEGATIVE) SARS-CoV-2 RNA (FAREED) Negative (NEGATIVE) 03/26/21 03/27/21 03/27/21 Range/Units 17:40 06:35 06:35 WBC 20.3 H* (4.0-10.0) x10^3/uL RBC 4.45 L (4.5-6.0) x10^6/uL Hgb 13.5 L (14.0-18.0) g/dL Hct 41.1 (40.0-52.0) % MCV 92.4 (78.0-93.0) fL MCH 30.3 (26.0-32.0) pg MCHC 32.8 (32.0-36.0) g/dL RDW Coeff of Jerome 13.3 (10.0-15.0) % Plt Count 326 (130-400) x10^3/uL Add Manual Diff Yes Neutrophils % (Manual) 84 H (50-80) % Band Neutrophils % (0-6) % Lymphocytes % (Manual) 9 L (25-50) % Reactive Lymphs % (0) % Monocytes % (Manual) 7 (2-11) % Basophils % (Manual) (0-1) % Metamyelocytes % (0) % Immature Gran # (0.00-0.07) X10^3/Ul Absolute Neutrophils 17.1 H (1.8-7.7) x10^3/uL Lymphocytes # (Manual) 1.8 (1.0-4.8) x10^3/uL Monocytes # (Manual) 1.4 H (0.0-0.8) x10^3/uL Basophils # (Manual) (0.0-0.2) x10^3/uL Vacuolated Monocytes Platelet Estimate Adequate POC VBG pH 7.46 H (7.33-7.43) pH POC VBG pCO2 33 L (41-51) mmHg POC VBG pO2 40 mmHg POC VBG HCO3 23 (22-29) mmol/L POC Venous O2 Sat 78 % VBG Base Excess -1 (-(2)-3) mmol/L POC FiO2 21 Sodium 143 (136-145) mmol/L Potassium 3.9 (3.5-5.1) mmol/L Chloride 108 H (98-107) mmol/L Carbon Dioxide 27 (21-32) mmol/L POC Venous Total CO2 24 (23-30) mmol/L Anion Gap 11.9 (5-15) mmol/L BUN 14 (7-18) mg/dL Creatinine 0.8 (0.70-1.30) mg/dL Est Cr Clr Drug Dosing 79.56 Estimated GFR (MDRD) > 60 Glucose 105 H (70-99) mg/dL Lactic Acid (0.4-2.0) mmol/L Calcium 8.6 (8.5-10.1) mg/dL Corrected Calcium (8.5-10.1) mg/dL Total Bilirubin (0.2-1.0) mg/dL AST (15-37) U/L ALT (16-63) U/L Alkaline Phosphatase (46-116) U/L Ammonia (19-54) ug/dL Creatine Kinase 2189 H* (39-308) U/L Troponin I High Sens (<=76) ng/L C-Reactive Protein 22.8 H (<=0.9) mg/dL Total Protein (6.4-8.2) g/dL Albumin (3.4-5.0) g/dL Globulin Albumin/Globulin Ratio Lipase (73-393) U/L Procalcitonin (0.1-0.50) ng/mL Urine Color (YELLOW) Urine Appearance (CLEAR) Urine pH (5.0-8.0) Ur Specific [place] Urine Protein (NEGATIVE) mg/dL Urine Glucose (UA) (NEGATIVE) mg/dL Urine Ketones (NEGATIVE) mg/dL Urine Occult Blood (NEGATIVE) Urine Nitrite (NEGATIVE) Urine Bilirubin (NEGATIVE) Urine Urobilinogen (0.2) EU/dL Ur Leukocyte Esterase (NEGATIVE) U Hyaline Cast (Auto) Urine RBC (NOT SEEN) /HPF Urine WBC (NOT SEEN) /HPF Ur Squamous Epith Cells (NOT SEEN) /HPF Urine Bacteria (NOT SEEN) /HPF Urine Mucus (NOT SEEN) /LPF Urine Opiates Screen (NEGATIVE) Ur Buprenorphine Scrn (NEGATIVE) Ur Oxycodone Screen (NEGATIVE) Urine Methadone Screen (NEGATIVE) Ur Barbiturates Screen (NEGATIVE) Ur Phencyclidine Scrn (NEGATIVE) Ur Amphetamine Screen (NEGATIVE) U Methamphetamines Scrn (NEGATIVE) Urine MDMA Screen (NEGATIVE) U Benzodiazepines Scrn (NEGATIVE) U Cocaine Metab Screen (NEGATIVE) U Marijuana (THC) Screen (NEGATIVE) Ethyl Alcohol (0-3) mg/dL Influenza Type A RNA (NEGATIVE) RSV RNA (INAAT) (NEGATIVE) Influenza Type B RNA (NEGATIVE) SARS-CoV-2 RNA (FAREED) (NEGATIVE) 03/27/21 03/27/21 Range/Units 06:35 06:35 WBC (4.0-10.0) x10^3/uL RBC (4.5-6.0) x10^6/uL Hgb (14.0-18.0) g/dL Hct (40.0-52.0) % MCV (78.0-93.0) fL MCH (26.0-32.0) pg MCHC (32.0-36.0) g/dL RDW Coeff of [place] (10.0-15.0) % Plt Count (130-400) x10^3/uL Add Manual Diff Neutrophils % (Manual) (50-80) % Band Neutrophils % (0-6) % Lymphocytes % (Manual) (25-50) % Reactive Lymphs % (0) % Monocytes % (Manual) (2-11) % Basophils % (Manual) (0-1) % Metamyelocytes % (0) % Immature Gran # (0.00-0.07) X10^3/Ul Absolute Neutrophils (1.8-7.7) x10^3/uL Lymphocytes # (Manual) (1.0-4.8) x10^3/uL Monocytes # (Manual) (0.0-0.8) x10^3/uL Basophils # (Manual) (0.0-0.2) x10^3/uL Vacuolated Monocytes Platelet Estimate POC VBG pH (7.33-7.43) pH POC VBG pCO2 (41-51) mmHg POC VBG pO2 mmHg POC VBG HCO3 (22-29) mmol/L POC Venous O2 Sat % VBG Base Excess (-(2)-3) mmol/L POC FiO2 Sodium (136-145) mmol/L Potassium (3.5-5.1) mmol/L Chloride (98-107) mmol/L Carbon Dioxide (21-32) mmol/L POC Venous Total CO2 (23-30) mmol/L Anion Gap (5-15) mmol/L BUN (7-18) mg/dL Creatinine (0.70-1.30) mg/dL Est Cr Clr Drug Dosing Estimated GFR (MDRD) Glucose (70-99) mg/dL Lactic Acid 1.8 (0.4-2.0) mmol/L Calcium (8.5-10.1) mg/dL Corrected Calcium (8.5-10.1) mg/dL Total Bilirubin (0.2-1.0) mg/dL AST (15-37) U/L ALT (16-63) U/L Alkaline Phosphatase (46-116) U/L Ammonia (19-54) ug/dL Creatine Kinase (39-308) U/L Troponin I High Sens (<=76) ng/L C-Reactive Protein (<=0.9) mg/dL Total Protein (6.4-8.2) g/dL Albumin (3.4-5.0) g/dL Globulin Albumin/Globulin Ratio Lipase (73-393) U/L Procalcitonin 0.21 (0.1-0.50) ng/mL Urine Color (YELLOW) Urine Appearance (CLEAR) Urine pH (5.0-8.0) Ur Specific [place] Urine Protein (NEGATIVE) mg/dL Urine Glucose (UA) (NEGATIVE) mg/dL Urine Ketones (NEGATIVE) mg/dL Urine Occult Blood (NEGATIVE) Urine Nitrite (NEGATIVE) Urine Bilirubin (NEGATIVE) Urine Urobilinogen (0.2) EU/dL Ur Leukocyte Esterase (NEGATIVE) U Hyaline Cast (Auto) Urine RBC (NOT SEEN) /HPF Urine WBC (NOT SEEN) /HPF Ur Squamous Epith Cells (NOT SEEN) /HPF Urine Bacteria (NOT SEEN) /HPF Urine Mucus (NOT SEEN) /LPF Urine Opiates Screen (NEGATIVE) Ur Buprenorphine Scrn (NEGATIVE) Ur Oxycodone Screen (NEGATIVE) Urine Methadone Screen (NEGATIVE) Ur Barbiturates Screen (NEGATIVE) Ur Phencyclidine Scrn (NEGATIVE) Ur Amphetamine Screen (NEGATIVE) U Methamphetamines Scrn (NEGATIVE) Urine MDMA Screen (NEGATIVE) U Benzodiazepines Scrn (NEGATIVE) U Cocaine Metab Screen (NEGATIVE) U Marijuana (THC) Screen (NEGATIVE) Ethyl Alcohol (0-3) mg/dL Influenza Type A RNA (NEGATIVE) RSV RNA (INAAT) (NEGATIVE) Influenza Type B RNA (NEGATIVE) SARS-CoV-2 RNA (FAREED) (NEGATIVE) Result Diagrams: 03/27/21 15:55 03/27/21 06:35 Quoc Results Last 24 hrs: Microbiology 03/26/21 15:54 Anaerobic Blood Culture - Final Blood - Venous - Lab Draw Sepsis Event Note - Focused Exam Vital Signs: Vital Signs Temp Pulse Pulse Resp BP BP Pulse Ox 03/27/21 10:00 97.6 F 59 L 12 92/56 L 96 03/27/21 08:10 168/85 H 03/27/21 08:09 89 168/85 H 03/27/21 06:50 97.9 F 89 16 168/85 H 95 03/27/21 02:00 97.8 F 83 16 149/65 H 95 - Problem List & Annotations (1) Encephalopathy acute SNOMED Code(s): 40028023, 286391041 Code(s): G93.40 - ENCEPHALOPATHY, UNSPECIFIED Status: Acute Current Visit: Yes Annotation/Comment:: The patient's encephalopathy/confusion has completely resolved. He is alert appropriate. I am unsure specifically what causes encephalopathy. This could be related to infection dehydration and/or narcotic withdrawal that he has been on oxycodone for 5 years and has not taken it for a couple of days. Is alert appropriate. He has no nuchal rigidity. No fever no chills. Continue to monitor. (2) Rhabdomyolysis SNOMED Code(s): 225284869 Code(s): M62.82 - RHABDOMYOLYSIS Status: Acute Current Visit: Yes Qualifiers: Rhabdomyolysis type: traumatic Encounter type: initial encounter Qualified Code(s): T79.6XXA - Traumatic ischemia of muscle, initial encounter Annotation/Comment:: Interestingly his CPK has worsened it went from 820 -2189. Although this is not overtly surprising with the development of new bruising to the posterior aspect of his back that was not there recently. His a atorvastatin has been held. We will continue hydration throughout the day and I will repeat it this evening. I think this is most likely due to muscle breakdown as well as the thrashing that he was doing all night in bed most likely due to narcotic withdrawal. Continue to monitor closely. (3) Leukocytosis SNOMED Code(s): 655151703, 900834086 Code(s): D72.829 - ELEVATED WHITE BLOOD CELL COUNT, UNSPECIFIED Status: Acute Current Visit: Yes Qualifiers: Leukocytosis type: bandemia Qualified Code(s): D72.825 - Bandemia Annotation/Comment:: His white blood cell count has not improved. Is still at 20.Although the bandemia has resolved. His neutrophils have gone from 78-84. Still unsure of the cause of his leukocytosis although this could be m ultifactorial in the presence of severe stress with the incident that has happened over the past 24 hours as well as dehydration and the cellulitis in his foot. Blood cultures are still pending. He has had no fever or chills clinically he is rapidly improved. We will continue his Rocephin at this time. His lactic acid is normal. His procalcitonin went from less than 0.05-0.21 we will continue trending this. (4) Cellulitis of right foot SNOMED Code(s): 181309063 Code(s): L03.115 - CELLULITIS OF RIGHT LOWER LIMB Status: Acute Current Visit: Yes Annotation/Comment:: X-ray today of the right foot shows no osseous abnormality acutely. He has some chronic degenerative changes. The redness of the distal foot has improved by about 50% so far. The dressing is in place. There is no drainage. Continue to monitor. (5) Dehydration SNOMED Code(s): 66414333 Code(s): E86.0 - DEHYDRATION Status: Acute Current Visit: Yes Annotation/Comment:: He has been taking some sips of oral fluid although it is difficult for him with the change in the function of his upper extremities. He has only voided once throughout the night. His CK is worsening. We will continue his fluid hydration I will increase it to 150 mils an hour. His kidney function is stayed stable. Creatinine on admission was 0.7 with a BUN of 15 creatinine today 0.8 with a BUN of 14. (6) CAD (coronary artery disease) SNOMED Code(s): 22607943 Code(s): I25.10 - ATHSCL HEART DISEASE OF [place] CORONARY ARTERY W/O ANG PCTRS Status: Acute Current Visit: Yes Annotation/Comment:: He has had no chest pain palpitations weakness or syncope. There was concern by the nursing staff this morning of a new onset atrial fibrillation although when I reviewed the monitoring on telemetry this appears to be artifact in nature. I do not see any signs of atrial fibrillation he is in a normal sinus rhythm. He has had no chest pain. Continue to follow. (7) HTN (hypertension) SNOMED Code(s): 75531153 Code(s): I10 - ESSENTIAL (PRIMARY) HYPERTENSION Status: Acute Current Vis it: Yes Annotation/Comment:: Blood pressure today 127/77 continue home medications. (8) COPD (chronic obstructive pulmonary disease) SNOMED Code(s): 98670499 Code(s): J44.9 - CHRONIC OBSTRUCTIVE PULMONARY DISEASE, UNSPECIFIED Status: Acute Current Visit: Yes Annotation/Comment:: He is not showing any signs of COPD exacerbation in the emergency department. He does not have any treatment at home for his COPD. We will continue to monitor and treat accordingly. (9) Chronic back pain SNOMED Code(s): 166962770 Code(s): M54.9 - DORSALGIA, UNSPECIFIED; G89.29 - OTHER CHRONIC PAIN Status: Acute Current Visit: Yes Annotation/Comment:: His pain is well controlled today. He only received as needed Dilaudid during the night one time. He relates he has no pain other than his chronic pain and he is very comfortable at this time. With the changes in the paresthesias of his upper extremities we will complete a CT thoracic spine no acute findings no neurosur bharti involvement at this time by the guidance from Dr. Dietz at [facility] as equal bilaterally. (10) Hypokalemia SNOMED Code(s): 54752030 Code(s): E87.6 - HYPOKALEMIA Status: Acute Current Visit: Yes Annotation/Comment:: His potassium on admission was 3.4. He received normal saline with 20 of KCl at 125 mils during the night his potassium today is 3.9. We will switch him to lactated Ringer's as he has an elevated chloride today for his continued hydration and monitor his potassium daily. (11) Nail avulsion, toe SNOMED Code(s): 681850879 Code(s): S91.209A - UNSP OPEN WOUND OF UNSP TOE(S) W DAMAGE TO NAIL, INIT ENCNTR Status: Acute Current Visit: Yes Annotation/Comment:: The cell ulitis of the right foot has improved by about 50% with the Rocephin overnight. X-ray of the right foot does not show any osseous abnormality. Dressing in place continue to monitor. (12) Abrasions of multiple sites SNOMED Code(s): 664377525, 609693546 Code(s): T07.XXXA - UNSPECIFIED MULTIPLE INJURIES, INITIAL ENCOUNTER Status: Acute Current Visit: Yes Annotation/Comment:: The abrasions of the lower extremities appear to be healing well or noninfectious. He does have some development of new bruising on the posterior primarily on the right thoracic region no overt bony deformity or no pain. Continue to monitor (13) Thoracic compression fracture SNOMED Code(s): 335617743 Code(s): S22.000A - WEDGE COMPRESSION FRACTURE OF UNSP THORACIC VERTEBRA, INIT Status: Acute Current Visit: Yes Qualifiers: Thoracic vertebra fracture level: T8 Annotation/Comment:: Thoracic x-ray from yesterday shows mild compression fractures of T8, T9, T10. Unable to determine chronicity. CT thoracic spine completed today. (14) Sepsis SNOMED Code(s): 90267746 Code(s): A41.9 - SEPSIS, UNSPECIFIED ORGANISM Status: Acute Current Visit: Yes Annotation/Comment:: This is most likely due to the cellulitis although I have concerns that it could be underlying infection in the hardware in his spine. His blood cultures are negative. I spoke with Dr. Dietz at [facility] in [place] still no beds available. His lactic has stayed normal although his procalcitonin is worsening minimally. He feels as the patient is clinically improving stay the course. Close follow up with clinic and neurosurgery and I/D if wbc isn't improving. NO neurosurgery consult at this time as his symptoms are equal bilaterally and most likely from the fall. monitor and stay the course at this time. - Problem List Review Problem List Initiated/Reviewed/Updated: Yes - My Orders Last 24 Hours: My Active Orders 03/26/21 15:07 Blood Culture x2 Reflex Set [OM.PC] Stat 03/26/21 15:47 CULTURE BLOOD [BC] Stat 03/26/21 15:54 CULTURE BLOOD [BC] Stat 03/26/21 16:40 MYOGLOBIN, URINE Stat 03/26/21 17:40 Admission Status [Patient Status] [ADT] Routine 03/26/21 18:05 Vaccines to be Administered [RC] PER UNIT ROUTINE 03/26/21 20:08 Cardiac Monitoring [RC] ,,,,, Intake and Output [RC] Oxygen Therapy [RC] PRN Up With Assistance [RC] VTE/DVT Education [RC] .PRN Vital Signs [RC] ,,,,, Consult to Case Management/Senior Formulation Scientist [CONS] Routine OT Evaluation and Treatment [CONS] Routine PT Evaluation and Treatment [CONS] Routine polyethylene glycoL 3350 [MiraLAX] 17 gm PO DAILY PRN Resuscitation Status Routine 03/26/21 20:14 Wound Care [RC] 03/26/21 20:16 Dietary Supplements [RC] BIDMEALS 03/26/21 20:53 HYDROmorphone [Dilaudid] 0.5 mg IV Q4HR PRN 03/27/21 Breakfast Advance Diet Instructions [DIET] Clear Liquid Diet [DIET] 03/27/21 08:00 ARIPiprazole [Abilify] 5 mg PO DAILY Aspirin [Halfprin] 81 mg PO DAILY Docusate Sodium/Sennosides [Senna Plus] 1 tab PO BID Isosorbide Mononitrate [Imdur] 60 mg PO DAILY Lutein/Zeaxanthin [Lutein-Zeaxanthin 25-5 mg Sfgl] 1 each PO BID Sertraline [Zoloft] 150 mg PO DAILY amLODIPine [Norvasc] 5 mg PO DAILY carvediloL [Coreg] 12.5 mg PO BIDMEALS 03/27/21 09:36 EKG 12 Lead [EKG Documentation Completion] [RC] STAT 03/27/21 09:42 Dietary Supplements [RC] ACBED 03/27/21 10:28 oxyCODONE 10 mg PO QID PRN 03/27/21 11:18 Foot Comp Min 3V Rt [CR] Routine 03/27/21 11:30 Lactated Ringers [Ringers, Lactated] 1,000 ml IV ASDIRECTED 03/27/21 12:00 Enoxaparin [Lovenox] 40 mg SUBCUT DAILY@1200 03/27/21 15:00 cefTRIAXone [Rocephin] 1 gm IVPUSH BID 03/27/21 16:00 CBC WITH AUTO DIFF [HEME] Timed 03/27/21 18:00 CPK [CREATINE KINASE,CK] [CHEM] Routine 03/27/21 20:00 Amitriptyline [Elavil] 50 mg PO BEDTIME 03/28/21 05:00 PROCALCITONIN [CHEM] DAILY 03/28/21 05:11 BASIC METABOLIC PANEL,BMP [CHEM] AM C-REACTIVE PROTEIN [CHEM] AM CBC WITH AUTO DIFF [HEME] AM CREATINE KINASE,CK [CHEM] AM LACTIC ACID [CHEM] AM 03/29/21 05:00 PROCALCITONIN [CHEM] DAILY - Assessment Assessment:: Assessment/plan. We will continue the patient on inpatient management. Although his laboratory evaluation today does not show much improvement the clinical appearance of this patient is a rapid and rather dramatic improvement. He is alert appropriate. The only findings today are concerning for the paresthesias and the decreased range of motion of his upper extremities. CT scan was ordered of the thoracic spine. No neurosurgery per Dr. Dietz at [facility] although close PCP follow up and neurosurgery appointment as well. Change in therapy today we will change him from normal saline with 20 of KCl at 125 to lactated Ringer's at 150 mils an hour. VTE: He is on Lovenox 40 mg subcutaneously daily. Sepsis: He does have a quite elevated white blood cell count. His lactic acid is normal. His procalcitonin is minimally elevated. His blood cultures are pending. He is on Rocephin 1 g twice daily. He primarily does not have much change in his differential of his leukocytosis and I wonder if this is somewhat not a stress response. Had no fever or chills. We will keep trending his labs. CODE STATUS: Discussed with the patient at length today as he is alert and appropriate his CODE STATUS will maintain at full code. I anticipate this patient will need at least 1 more night if not 2 nights of inpatient management until blood cultures return and laboratory evaluations improved. Although this patient has quite the improvement of his clinical status already. We will continue with the plans as above.
--- NOTE | 2021-03-27 14:15 | CR ---
[id number] RAD/RAD Foot Right 3V Min EXAM: 3 VIEWS RIGHT FOOT. INDICATION: GREAT TOE INJURY. COMPARISON: None. DISCUSSION: No fracture, dislocation or other acute osseous abnormality. Generalized osseous demineralization. Mild degenerative changes seen throughout the right foot most pronounced at the 1st metatarsophalangeal and interphalangeal joints. Large right plantar calcaneal spur. Vascular calcifications. IMPRESSION: 1. No acute osseous abnormalities. Chronic changes as above. Ervin Leon DO 03/27/21 1597 Thank you for allowing us to participate in the care of your patient.
[2021-03-27] MEDS: cefTRIAXone 1 GM Vial IVPUSH SCH ×2 (14:52→21:37)
[2021-03-27] MEDS ORDERED: cefTRIAXone 1 GM Vial IVPUSH SCH (15:00)
[2021-03-27] MEDS ORDERED: Iopamidol 612 MG/ML 100 ML Bottle IVPUSH ONE (16:19)
--- NOTE | 2021-03-27 17:31 | PCM.SN.2 ---
- Free Text/Narrative Note: I called and spoke with Dr. Dietz at [facility] in [place] with the worsening WBC and the parathesias of the upper extremities. I reviewed the [facility] ER course hospital course laboratory evaluation with Dr. Dietz. I did inform him that clinically this patient looks markedly better. Although his laboratory evaluation is not much improved. 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 There is also concern with his white blood cell count whether he has some type of infection in those rods although at this time there is no MRI to be completed urgently as they do not have any beds in [place]. We do not have MRI until Thursday. I was initially considering adding vancomycin due to the worsening white blood cell count and CRP although Dr. Dietz advises as the patient is clinically improving I would stay the course at this time. Anything new or worse call them back tomorrow. Follow-up with neurosurgery following this with concerns and closely monitored in the primary care clinic.
--- NOTE | 2021-03-27 17:57 | CT ---
[id number] CT/CT Thoracic Spine W IV Exam: CT Thoracic Spine W IV Indication:PARESTHESIAS UPPER EXTREMITIES DECREASED RANGE OF Comparison: Radiograph from March 26, 2021. CT from June 2019. Discussion: Fusion hardware at T11 extending beyond the field of view of this examination. Right fixation screw is possibly fractured at its base. Chronic appearing mild compression deformities of T10 and T11. No evidence of an acute fracture or compression deformity. Thoracic spondylosis. 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 Severe intervertebral disc height loss at T9-10 and T10-11. Bulky bridging osteophytes at T8-9 through T11-12. Thoracic facet joint arthropathy as well. Findings are most prominent at T8-9 through T11-12, resulting in bony foraminal stenosis bilaterally. Incidentally noted are patchy areas of subpleural nodular masslike geographic appearing groundglass parenchymal opacification symmetrically distributed throughout the lungs. Findings are nonspecific but can be seen with pneumonia, including sequela of COVID 19. There is also bibasal dependent atelectasis in the posterior lower lobes. Moderate-sized sliding-type hiatus hernia. No mediastinal or hilar lymphadenopathy. Bilateral adrenal masses. No significant change from prior examination in 2019. These are most consistent with adenomas. Impression: No acute findings in the thoracic spine. Chronic changes in the spine are described above. Possible changes of pneumonia, including sequela of COVID 19. Jose To MD 03/27/21 4926 Thank you for allowing us to participate in the care of your patient.
[2021-03-27] MEDS ORDERED: VANCOmycin 1.5 GM/300 ML 300 ML IV ONE (18:00)
[2021-03-27] MEDS: Amitriptyline 25 MG Tab PO SCH (21:37)
[2021-03-28] MEDS: oxyCODONE 5 MG Tab PO PRN ×3 (05:22→20:10)
[2021-03-28] MEDS: Lactated Ringers 1,000 ML IV SCH (05:56)
[2021-03-28] MEDS ORDERED: VANCOMYCIN 1.25 GM/250 ML IV SCH (06:00)
[2021-03-28] MEDS: HYDROmorphone 0.5 MG/0.5 ML Syringe IV PRN (06:16)
[2021-03-28 07:21] LABS: CHLORIDE,CL 107 mmol/L (98-107); SODIUM,NA 140 mmol/L (136-145)
[2021-03-28 07:25] LABS: ANION GAP 10.3 mmol/L (5-15)
[2021-03-28] MEDS ORDERED: Potassium Chloride 10% 20 MEQ/15 ML Soln 15 ML UD Cup PO ONE (07:57)
[2021-03-28] MEDS: Carvedilol 12.5 MG Tab PO SCH ×2 (09:37→19:38)
[2021-03-28] MEDS: Sertraline 100 MG Tab PO SCH (09:38)
[2021-03-28] MEDS: amLODIPine 5 MG Tab PO SCH (09:38)
[2021-03-28] MEDS: ARIPiprazole 5 MG Tab PO SCH (09:41)
[2021-03-28] MEDS: Aspirin 81 MG Tab.EC PO SCH (09:41)
[2021-03-28] MEDS: Isosorbide Mononitrate 60 MG Tab.ER PO SCH (09:41)
[2021-03-28] MEDS: Potassium Chloride 20 MEQ Tab.ER PO SCH (09:48)
[2021-03-28] MEDS: cefTRIAXone 1 GM Vial IVPUSH SCH ×2 (09:52→20:57)
[2021-03-28] MEDS: LUTEIN PO SCH ×2 (10:34→10:35)
[2021-03-28] MEDS: ZEAXANTHIN PO SCH ×2 (10:34→10:35)
[2021-03-28] MEDS: Enoxaparin 40 MG/0.4 ML Syringe SUBCUT SCH (13:36)
--- NOTE | 2021-03-28 14:50 | PCM.PN ---
- General Info Date of Service: 03/28/21 Admission Dx/Problem (Free Text): Acute encephalopathy/confusion Cellulitis right foot Rhabdo multiple abrasions dehydration leukocytosis/Sepsis without septic shock. Subjective Update: This is Hospital day #2 for this patient who is admitted from the emergency department with concerns of sepsis and acute encephalopathy cellulitis falls rhabdomyolysis. This patient relates that other than his arms and his strength of his legs he is really back to normal. He has had no difficulty breathing. No confusion. No chest pain no shortness of breath or difficulty breathing. No cough or congestion. No abdominal pain. No nausea no vomiting. He does have some pain to his right foot at times. He has had no confusion. His biggest concern today is his inability to walk. He relates that his legs are not strong enough to get him up to walk. As well as his arms continue to have some difficulty with fine motor. Functional Status: Reports: Pain Controlled - Patient Data Vitals - Most Recent: Last Vital Signs Temp 96.1 F L 03/28/21 14:00 Pulse 55 L 03/28/21 14:00 Resp 16 03/28/21 14:00 BP 125/58 L 03/28/21 14:00 Pulse Ox 93 L 03/28/21 14:00 Weight - Most Recent: 173 lb 6.4 oz I&O - Last 24 Hours: Intake & Output 03/27/21 03/28/21 03/28/21 22:59 06:59 14:59 Intake Total 1820 480 Output Total 400 Balance 1420 480 Lab Results Last 24 Hours: Laboratory Results - last 24 hr 03/27/21 03/27/21 03/27/21 Range/Units 15:55 15:55 18:24 WBC 21.4 H* (4.0-10.0) x10^3/uL RBC 4.18 L (4.5-6.0) x10^6/uL Hgb 13.0 L (14.0-18.0) g/dL Hct 38.7 L (40.0-52.0) % MCV 92.6 (78.0-93.0) fL MCH 31.1 (26.0-32.0) pg MCHC 33.6 (32.0-36.0) g/dL RDW Coeff of Jerome 13.5 (10.0-15.0) % Plt Count 323 (130-400) x10^3/uL Immature Gran % (Auto) (0.00-0.43) % Neut % (Auto) (50.0-80.0) % Lymph % (Auto) (25.0-50.0) % [place] % (Auto) (2.0-11.0) % Eos % (Auto) (0.0-4.0) % Baso % (Auto) (0.2-1.2) % Neut # (Auto) (1.8-7.7) x10^3/uL Lymph # (Auto) (1.0-4.8) x10^3/uL [place] # (Auto) (0.0-0.8) x10^3/uL Eos # (Auto) (0.0-0.5) x10^3/uL Baso # (Auto) (0.0-0.2) x10^3/uL Immature Gran # (Auto) (0.00-0.07) x10^3/uL Add Manual Diff Yes Neutrophils % (Manual) 84 H (50-80) % Band Neutrophils % 1 (0-6) % Lymphocytes % (Manual) 7 L (25-50) % Monocytes % (Manual) 8 (2-11) % Absolute Neutrophils 18.2 H (1.8-7.7) x10^3/uL Lymphocytes # (Manual) 1.5 (1.0-4.8) x10^3/uL Monocytes # (Manual) 1.7 H (0.0-0.8) x10^3/uL Platelet Estimate Adequate Sodium (136-145) mmol/L Potassium (3.5-5.1) mmol/L Chloride (98-107) mmol/L Carbon Dioxide (21-32) mmol/L Anion Gap (5-15) mmol/L BUN (7-18) mg/dL Creatinine (0.70-1.30) mg/dL Est Cr Clr Drug Dosing mL/min Estimated GFR (MDRD) Glucose (70-99) mg/dL Lactic Acid (0.4-2.0) mmol/L Calcium (8.5-10.1) mg/dL Magnesium (1.8-2.4) mg/dL Ferritin (26-388) ng/mL Creatine Kinase 1531 H* (39-308) U/L C-Reactive Protein (<=0.9) mg/dL Procalcitonin (0.1-0.50) ng/mL SARS-CoV-2 RNA (FAREED) Negative (NEGATIVE) 03/28/21 03/28/21 03/28/21 Range/Units 06:15 06:15 06:15 WBC 15.6 H (4.0-10.0) x10^3/uL RBC 3.64 L (4.5-6.0) x10^6/uL Hgb 11.4 L D (14.0-18.0) g/dL Hct 33.3 L (40.0-52.0) % MCV 91.5 (78.0-93.0) fL MCH 31.3 (26.0-32.0) pg MCHC 34.2 (32.0-36.0) g/dL RDW Coeff of Jerome 13.7 (10.0-15.0) % Plt Count 314 (130-400) x10^3/uL Immature Gran % (Auto) 0.10 (0.00-0.43) % Neut % (Auto) 79.3 (50.0-80.0) % Lymph % (Auto) 11.5 L (25.0-50.0) % [place] % (Auto) 8.3 (2.0-11.0) % Eos % (Auto) 0.6 (0.0-4.0) % Baso % (Auto) 0.2 (0.2-1.2) % Neut # (Auto) 12.4 H (1.8-7.7) x10^3/uL Lymph # (Auto) 1.8 (1.0-4.8) x10^3/uL [place] # (Auto) 1.3 H (0.0-0.8) x10^3/uL Eos # (Auto) 0.1 (0.0-0.5) x10^3/uL Baso # (Auto) 0.0 (0.0-0.2) x10^3/uL Immature Gran # (Auto) 0.02 (0.00-0.07) x10^3/uL Add Manual Diff Neutrophils % (Manual) (50-80) % Band Neutrophils % (0-6) % Lymphocytes % (Manual) (25-50) % Monocytes % (Manual) (2-11) % Absolute Neutrophils (1.8-7.7) x10^3/uL Lymphocytes # (Manual) (1.0-4.8) x10^3/uL Monocytes # (Manual) (0.0-0.8) x10^3/uL Platelet Estimate Sodium 140 (136-145) mmol/L Potassium 3.3 L (3.5-5.1) mmol/L Chloride 107 (98-107) mmol/L Carbon Dioxide 26 (21-32) mmol/L Anion Gap 10.3 (5-15) mmol/L BUN 16 (7-18) mg/dL Creatinine 0.7 (0.70-1.30) mg/dL Est Cr Clr Drug Dosing 90.93 mL/min Estimated GFR (MDRD) > 60 Glucose 110 H (70-99) mg/dL Lactic Acid 1.5 (0.4-2.0) mmol/L Calcium 8.2 L (8.5-10.1) mg/dL Magnesium (1.8-2.4) mg/dL Ferritin (26-388) ng/mL Creatine Kinase 711 H* (39-308) U/L C-Reactive Protein 17.6 H (<=0.9) mg/dL Procalcitonin (0.1-0.50) ng/mL SARS-CoV-2 RNA (FAREED) (NEGATIVE) 03/28/21 03/28/21 03/28/21 Range/Units 06:15 06:15 06:15 WBC (4.0-10.0) x10^3/uL RBC (4.5-6.0) x10^6/uL Hgb (14.0-18.0) g/dL Hct (40.0-52.0) % MCV (78.0-93.0) fL MCH (26.0-32.0) pg MCHC (32.0-36.0) g/dL RDW Coeff of [place] (10.0-15.0) % Plt Count (130-400) x10^3/uL Immature Gran % (Auto) (0.00-0.43) % Neut % (Auto) (50.0-80.0) % Lymph % (Auto) (25.0-50.0) % [place] % (Auto) (2.0-11.0) % Eos % (Auto) (0.0-4.0) % Baso % (Auto) (0.2-1.2) % Neut # (Auto) (1.8-7.7) x10^3/uL Lymph # (Auto) (1.0-4.8) x10^3/uL [place] # (Auto) (0.0-0.8) x10^3/uL Eos # (Auto) (0.0-0.5) x10^3/uL Baso # (Auto) (0.0-0.2) x10^3/uL Immature Gran # (Auto) (0.00-0.07) x10^3/uL Add Manual Diff Neutrophils % (Manual) (50-80) % Band Neutrophils % (0-6) % Lymphocytes % (Manual) (25-50) % Monocytes % (Manual) (2-11) % Absolute Neutrophils (1.8-7.7) x10^3/uL Lymphocytes # (Manual) (1.0-4.8) x10^3/uL Monocytes # (Manual) (0.0-0.8) x10^3/uL Platelet Estimate Sodium (136-145) mmol/L Potassium (3.5-5.1) mmol/L Chloride (98-107) mmol/L Carbon Dioxide (21-32) mmol/L Anion Gap (5-15) mmol/L BUN (7-18) mg/dL Creatinine (0.70-1.30) mg/dL Est Cr Clr Drug Dosing mL/min Estimated GFR (MDRD) Glucose (70-99) mg/dL Lactic Acid (0.4-2.0) mmol/L Calcium (8.5-10.1) mg/dL Magnesium 1.7 L (1.8-2.4) mg/dL Ferritin 362 (26-388) ng/mL Creatine Kinase (39-308) U/L C-Reactive Protein (<=0.9) mg/dL Procalcitonin 0.14 (0.1-0.50) ng/mL SARS-CoV-2 RNA (FAREED) (NEGATIVE) [place] Results Last 24 Hours: Microbiology 03/26/21 15:54 Aerobic Blood Culture - Preliminary Blood - Venous - Lab Draw NO GROWTH AFTER 1 DAY Anaerobic Blood Culture - Final 03/26/21 15:47 Aerobic Blood Culture - Preliminary Blood - Venous NO GROWTH AFTER 1 DAY Anaerobic Blood Culture - Preliminary NO GROWTH AFTER 1 DAY Med Orders - Current: Current Medications Amitriptyline HCl (Amitriptyline 25 Mg Tab) 50 mg PO BEDTIME [facility] Last Admin: 03/27/21 21:37 Dose: 50 mg Documented by: Amlodipine Besylate (Amlodipine 5 Mg Tab) 5 mg PO DAILY [facility] Last Admin: 03/28/21 09:38 Dose: 5 mg Documented by: Aripiprazole (Aripiprazole 5 Mg Tab) 5 mg PO DAILY [facility] Last Admin: 03/28/21 09:41 Dose: 5 mg Documented by: Aspirin (Aspirin 81 Mg Tab.Ec) 81 mg PO DAILY [facility] Last Admin: 03/28/21 09:41 Dose: 81 mg Documented by: Carvedilol (Carvedilol 12.5 Mg Tab) 12.5 mg PO BIDMEALS [facility] Last Admin: 03/28/21 09:37 Dose: 12.5 mg Documented by: Ceftriaxone Sodium (Ceftriaxone 1 Gm Vial) 1 gm IVPUSH BID [facility] Last Admin: 03/28/21 09:52 Dose: 1 gm Documented by: Enoxaparin Sodium (Enoxaparin 40 Mg/0.4 Ml Syringe) 40 mg SUBCUT DAILY@1200 [facility] Last Admin: 03/28/21 13:36 Dose: 40 mg Documented by: Hydromorphone HCl (Hydromorphone 0.5 Mg/0.5 Ml Syringe) 0.5 mg IV Q4HR PRN PRN Reason: Pain Last Admin: 03/28/21 06:16 Dose: 0.5 mg Documented by: Lactated Ringer's (Ringers, Lactated) 1,000 mls @ 150 mls/hr IV ASDIRECTED [facility] Last Admin: 03/28/21 05:56 Dose: 150 mls/hr Documented by: Isosorbide Mononitrate (Isosorbide Mononitrate 60 Mg Tab.Er) 60 mg PO DAILY [facility] Last Admin: 03/28/21 09:41 Dose: 60 mg Documented by: Oxycodone HCl (Oxycodone 5 Mg Tab) 10 mg PO QID PRN PRN Reason: Pain Last Admin: 03/28/21 13:37 Dose: 10 mg Documented by: Polyethylene Glycol (Polyethylene Glycol 3350 Powder 17 Gm Packet) 17 gm PO DAILY PRN PRN Reason: Constipation Potassium Chloride (Potassium Chloride 20 Meq Tab.Er) 20 meq PO DAILY [facility] Last Admin: 03/28/21 09:48 Dose: 20 meq Documented by: Senna/Docusate Sodium (Docusate Sodium/Sennosides 50-8.6 Mg Tab) 1 tab PO BID [facility] Last Admin: 03/28/21 09:38 Dose: 1 tab Documented by: Sertraline HCl (Sertraline 100 Mg Tab) 150 mg PO DAILY [facility] Last Admin: 03/28/21 09:38 Dose: 150 mg Documented by: Discontinued Medications Ceftriaxone Sodium (Ceftriaxone 2 Gm Vial) 2 gm IVPUSH STAT ONE Stop: 03/26/21 15:11 Last Admin: 03/26/21 15:45 Dose: 2 gm Documented by: Ceftriaxone Sodium (Ceftriaxone 1 Gm Vial) 1 gm IVPUSH DAILY [facility] Diphtheria/Tetanus/Acell Pertussis (Diphtheria,Pertussis(Acell),Tetanus Vaccine 0.5 Ml Syringe) 0.5 ml IM .ONCE ONE Stop: 03/26/21 18:06 Last Admin: 03/26/21 18:53 Dose: 0.5 ml Documented by: Lactated Ringer's (Ringers, Lactated) 1,000 mls @ 999 mls/hr IV ONETIME ONE Stop: 03/26/21 16:11 Last Admin: 03/26/21 15:35 Dose: 999 mls/hr Documented by: Sodium Chloride (Normal Saline) 1,000 mls @ 125 mls/hr IV ASDIRECTED [facility] Last Admin: 03/26/21 18:52 Dose: 125 mls/hr Documented by: Potassium Chloride/Sodium Chloride (Normal Saline With 20 Meq Kcl) 1,000 mls @ 100 mls/hr IV ASDIRECTED [facility] Last Admin: 03/27/21 00:13 Dose: 100 mls/hr Documented by: Vancomycin HCl (Vancomycin 1.5 Gm/300 Ml) 300 mls @ 150 mls/hr IV ONETIME ONE Stop: 03/27/21 19:59 Vancomycin HCl (Vancomycin 1.25 Gm/250 Ml) 300 mls @ 150 mls/hr IV Q12H [facility] Iopamidol (Iopamidol 612 Mg/Ml 100 Ml Bottle) 100 ml IVPUSH ONETIME ONE Stop: 03/27/21 16:20 Last Admin: 03/27/21 16:45 Dose: 100 ml Documented by: Morphine Sulfate (Morphine 2 Mg/Ml Syringe) 2 mg IVPUSH ONETIME ONE Stop: 03/26/21 16:34 Last Admin: 03/26/21 16:35 Dose: 2 mg Documented by: Morphine Sulfate (Morphine 4 Mg/Ml Syringe) 4 mg IVPUSH ONETIME ONE Stop: 03/26/21 16:53 Last Admin: 03/26/21 16:58 Dose: 4 mg Documented by: Lutein/Zeaxanthin [ Lutein-Zeaxanthin 25 -5 Mg Sfgl #Own Med# 1 each PO BID [facility] Last Admin: 03/28/21 10:35 Dose: Not Given Documented by: Oxycodone HCl (Oxycodone 5 Mg Tab) 10 mg PO QID PRN PRN Reason: Pain Oxycodone HCl (Oxycodone 5 Mg Tab) 10 mg PO QID PRN PRN Reason: Pain Potassium Chloride (Potassium Chloride 10% 20 Meq/15 Ml Soln 15 Ml Ud Cup) 20 meq PO ONETIME ONE Stop: 03/28/21 07:58 Last Admin: 03/28/21 09:48 Dose: 20 meq Documented by: Vancomycin HCl (Pharmacy To Dose - Vancomycin) 1 dose .XX ASDIRECTED [facility] - Exam General: Alert, Oriented HEENT: Pupils Equal, Pupils Reactive Neck: Supple Lungs: Clear to Auscultation, Normal Respiratory Effort Cardiovascular: Regular Rate, Regular Rhythm GI/Abdominal Exam: Normal Bowel Sounds, Soft, Non-Tender (Male) Exam: Deferred Back Exam: Normal Inspection (Normal inspection other than the bruising on the mid clavicular posterior right thorax region. Nothing new.), Full Range of Motion Extremities: No: Normal Inspection (Yesterday I did not document the concerns of the erythema on the scabs of the anterior distal tib-fib region which have improved today. As well as the cellulitis of his foot is improved even more. The dressing that is to be on his toe was not in place. There is quite a bit of scabbing on the nail) Neurological: Other (This patient still has difficulty with fine motor as well as strength to his hands and his lower extremities.) Psy/Mental Status: Alert, Normal Affect, Normal Mood - Patient Data Lab Results Last 24 hrs: Laboratory Results - last 24 hr 03/27/21 03/27/21 03/27/21 Range/Units 15:55 15:55 18:24 WBC 21.4 H* (4.0-10.0) x10^3/uL RBC 4.18 L (4.5-6.0) x10^6/uL Hgb 13.0 L (14.0-18.0) g/dL Hct 38.7 L (40.0-52.0) % MCV 92.6 (78.0-93.0) fL MCH 31.1 (26.0-32.0) pg MCHC 33.6 (32.0-36.0) g/dL RDW Coeff of Jerome 13.5 (10.0-15.0) % Plt Count 323 (130-400) x10^3/uL Immature Gran % (Auto) (0.00-0.43) % Neut % (Auto) (50.0-80.0) % Lymph % (Auto) (25.0-50.0) % [place] % (Auto) (2.0-11.0) % Eos % (Auto) (0.0-4.0) % Baso % (Auto) (0.2-1.2) % Neut # (Auto) (1.8-7.7) x10^3/uL Lymph # (Auto) (1.0-4.8) x10^3/uL [place] # (Auto) (0.0-0.8) x10^3/uL Eos # (Auto) (0.0-0.5) x10^3/uL Baso # (Auto) (0.0-0.2) x10^3/uL Immature Gran # (Auto) (0.00-0.07) x10^3/uL Add Manual Diff Yes Neutrophils % (Manual) 84 H (50-80) % Band Neutrophils % 1 (0-6) % Lymphocytes % (Manual) 7 L (25-50) % Monocytes % (Manual) 8 (2-11) % Absolute Neutrophils 18.2 H (1.8-7.7) x10^3/uL Lymphocytes # (Manual) 1.5 (1.0-4.8) x10^3/uL Monocytes # (Manual) 1.7 H (0.0-0.8) x10^3/uL Platelet Estimate Adequate Sodium (136-145) mmol/L Potassium (3.5-5.1) mmol/L Chloride (98-107) mmol/L Carbon Dioxide (21-32) mmol/L Anion Gap (5-15) mmol/L BUN (7-18) mg/dL Creatinine (0.70-1.30) mg/dL Est Cr Clr Drug Dosing mL/min Estimated GFR (MDRD) Glucose (70-99) mg/dL Lactic Acid (0.4-2.0) mmol/L Calcium (8.5-10.1) mg/dL Magnesium (1.8-2.4) mg/dL Ferritin (26-388) ng/mL Creatine Kinase 1531 H* (39-308) U/L C-Reactive Protein (<=0.9) mg/dL Procalcitonin (0.1-0.50) ng/mL SARS-CoV-2 RNA (FAREED) Negative (NEGATIVE) 03/28/21 03/28/21 03/28/21 Range/Units 06:15 06:15 06:15 WBC 15.6 H (4.0-10.0) x10^3/uL RBC 3.64 L (4.5-6.0) x10^6/uL Hgb 11.4 L D (14.0-18.0) g/dL Hct 33.3 L (40.0-52.0) % MCV 91.5 (78.0-93.0) fL MCH 31.3 (26.0-32.0) pg MCHC 34.2 (32.0-36.0) g/dL RDW Coeff of [place] 13.7 (10.0-15.0) % Plt Count 314 (130-400) x10^3/uL Immature Gran % (Auto) 0.10 (0.00-0.43) % Neut % (Auto) 79.3 (50.0-80.0) % Lymph % (Auto) 11.5 L (25.0-50.0) % [place] % (Auto) 8.3 (2.0-11.0) % Eos % (Auto) 0.6 (0.0-4.0) % Baso % (Auto) 0.2 (0.2-1.2) % Neut # (Auto) 12.4 H (1.8-7.7) x10^3/uL Lymph # (Auto) 1.8 (1.0-4.8) x10^3/uL [place] # (Auto) 1.3 H (0.0-0.8) x10^3/uL Eos # (Auto) 0.1 (0.0-0.5) x10^3/uL Baso # (Auto) 0.0 (0.0-0.2) x10^3/uL Immature Gran # (Auto) 0.02 (0.00-0.07) x10^3/uL Add Manual Diff Neutrophils % (Manual) (50-80) % Band Neutrophils % (0-6) % Lymphocytes % (Manual) (25-50) % Monocytes % (Manual) (2-11) % Absolute Neutrophils (1.8-7.7) x10^3/uL Lymphocytes # (Manual) (1.0-4.8) x10^3/uL Monocytes # (Manual) (0.0-0.8) x10^3/uL Platelet Estimate Sodium 140 (136-145) mmol/L Potassium 3.3 L (3.5-5.1) mmol/L Chloride 107 (98-107) mmol/L Carbon Dioxide 26 (21-32) mmol/L Anion Gap 10.3 (5-15) mmol/L BUN 16 (7-18) mg/dL Creatinine 0.7 (0.70-1.30) mg/dL Est Cr Clr Drug Dosing 90.93 mL/min Estimated GFR (MDRD) > 60 Glucose 110 H (70-99) mg/dL Lactic Acid 1.5 (0.4-2.0) mmol/L Calcium 8.2 L (8.5-10.1) mg/dL Magnesium (1.8-2.4) mg/dL Ferritin (26-388) ng/mL Creatine Kinase 711 H* (39-308) U/L C-Reactive Protein 17.6 H (<=0.9) mg/dL Procalcitonin (0.1-0.50) ng/mL SARS-CoV-2 RNA (FAREED) (NEGATIVE) 03/28/21 03/28/21 03/28/21 Range/Units 06:15 06:15 06:15 WBC (4.0-10.0) x10^3/uL RBC (4.5-6.0) x10^6/uL Hgb (14.0-18.0) g/dL Hct (40.0-52.0) % MCV (78.0-93.0) fL MCH (26.0-32.0) pg MCHC (32.0-36.0) g/dL RDW Coeff of [place] (10.0-15.0) % Plt Count (130-400) x10^3/uL Immature Gran % (Auto) (0.00-0.43) % Neut % (Auto) (50.0-80.0) % Lymph % (Auto) (25.0-50.0) % [place] % (Auto) (2.0-11.0) % Eos % (Auto) (0.0-4.0) % Baso % (Auto) (0.2-1.2) % Neut # (Auto) (1.8-7.7) x10^3/uL Lymph # (Auto) (1.0-4.8) x10^3/uL [place] # (Auto) (0.0-0.8) x10^3/uL Eos # (Auto) (0.0-0.5) x10^3/uL Baso # (Auto) (0.0-0.2) x10^3/uL Immature Gran # (Auto) (0.00-0.07) x10^3/uL Add Manual Diff Neutrophils % (Manual) (50-80) % Band Neutrophils % (0-6) % Lymphocytes % (Manual) (25-50) % Monocytes % (Manual) (2-11) % Absolute Neutrophils (1.8-7.7) x10^3/uL Lymphocytes # (Manual) (1.0-4.8) x10^3/uL Monocytes # (Manual) (0.0-0.8) x10^3/uL Platelet Estimate Sodium (136-145) mmol/L Potassium (3.5-5.1) mmol/L Chloride (98-107) mmol/L Carbon Dioxide (21-32) mmol/L Anion Gap (5-15) mmol/L BUN (7-18) mg/dL Creatinine (0.70-1.30) mg/dL Est Cr Clr Drug Dosing mL/min Estimated GFR (MDRD) Glucose (70-99) mg/dL Lactic Acid (0.4-2.0) mmol/L Calcium (8.5-10.1) mg/dL Magnesium 1.7 L (1.8-2.4) mg/dL Ferritin 362 (26-388) ng/mL Creatine Kinase (39-308) U/L C-Reactive Protein (<=0.9) mg/dL Procalcitonin 0.14 (0.1-0.50) ng/mL SARS-CoV-2 RNA (FAREED) (NEGATIVE) Result Diagrams: 03/28/21 06:15 03/28/21 06:15 [place] Results Last 24 hrs: Microbiology 03/26/21 15:54 Aerobic Blood Culture - Preliminary Blood - Venous - Lab Draw NO GROWTH AFTER 1 DAY Anaerobic Blood Culture - Final 03/26/21 15:47 Aerobic Blood Culture - Preliminary Blood - Venous NO GROWTH AFTER 1 DAY Anaerobic Blood Culture - Preliminary NO GROWTH AFTER 1 DAY Sepsis Event Note - Evaluation Sepsis Screening Result: Possible Sepsis Risk - Focused Exam Vital Signs: Vital Signs Temp Pulse Pulse Resp BP BP Pulse Ox 03/28/21 14:00 96.1 F L 55 L 16 125/58 L 93 L 03/28/21 09:38 142/81 H 03/28/21 09:37 87 142/81 H 03/28/21 05:49 98.4 F 67 16 149/57 H 99 - Problem List & Annotations (1) Encephalopathy acute SNOMED Code(s): 41078707, 042035705 Code(s): G93.40 - ENCEPHALOPATHY, UNSPECIFIED Status: Acute Current Visit: Yes Annotation/Comment:: SepsisEncephalopathy continues to be completely resolved. There is no confusion. This is most likely due to with acute encephalopathy due to sepsis. We will continue to monitor. Could also be due to his narcotic withdrawal but more likely his sepsis. (2) Rhabdomyolysis SNOMED Code(s): 284336418 Code(s): M62.82 - RHABDOMYOLYSIS Status: Acute Current Visit: Yes Qualifiers: Rhabdomyolysis type: traumatic Encounter type: initial encounter Qualified Code(s): T79.6XXA - Traumatic ischemia of muscle, initial encounter Annotation/Comment:: His CPK is down to 711 much improved from yesterday at 1531. He is not currently getting any fluids although he is taking oral fluids well. Continue to monitor. (3) Leukocytosis SNOMED Code(s): 770011866, 541078442 Code(s): D72.829 - ELEVATED WHITE BLOOD CELL COUNT, UNSPECIFIED Status: Acute Current Visit: Yes Qualifiers: Leukocytosis type: bandemia Qualified Code(s): D72.825 - Bandemia Annotation/Comment:: See sepsis section (4) Cellulitis of right foot SNOMED Code(s): 587394399 Code(s): L03.115 - CELLULITIS OF RIGHT LOWER LIMB Status: Acute Current Visit: Yes Annotation/Comment:: Cellulitis of the right foot and anterior tib- fib improving. Continue Rocephin 1 g twice daily (5) Dehydration SNOMED Code(s): 77079496 Code(s): E86.0 - DEHYDRATION Status: Acute Current Visit: Yes Annotation/Comment:: His dehydration has resolved. He has not obtained any IV fluids since yesterday. He is taking good oral intake. His creatinine is appropriate. Continue to monitor (6) CAD (coronary artery disease) SNOMED Code(s): 94573838 Code(s): I25.10 - ATHSCL HEART DISEASE OF [place] CORONARY ARTERY W/O ANG PCTRS Status: Acute Current Visit: Yes Annotation/Comment:: He has been in normal sinus rhythm. He has had no chest pain difficulty breathing shortness of breath. Continue home medications and monitor (7) HTN (hypertension) SNOMED Code(s): 06250093 Code(s): I10 - ESSENTIAL (PRIMARY) HYPERTENSION Status: Acute Current Visit: Yes Annotation/Comment:: Blood pressure today 125/58 pulse rate 55. Continue home therapy. Monitor (8) COPD (chronic obstructive pulmonary disease) SNOMED Code(s): 87983021 Code(s): J44.9 - CHRONIC OBSTRUCTIVE PULMONARY DISEASE, UNSPECIFIED Status: Acute Current Visit: Yes Annotation/Comment:: He is not showing any signs of COPD exacerbation in the emergency department. He does not have any treatment at home for his COPD. We will continue to monitor and treat accordingly. (9) Chronic back pain SNOMED Code(s): 879419344 Code(s): M54.9 - DORSALGIA, UNSPECIFIED; G89.29 - OTHER CHRONIC PAIN Status: Acute Current Visit: Yes Annotation/Comment:: Pain is well controlled at this time. Continue his oxycodone. Consideration of full spine MRI on Thursday as directed by [facility]. (10) Hypokalemia SNOMED Code(s): 83920112 Code(s): E87.6 - HYPOKALEMIA Status: Acute Current Visit: Yes Annotation/Comment:: His potassium yesterday was 3.9, today is 3.3. Magnesium is a little bit on the low side at 1.7. We will start him on daily potassium supplementation. He was also given an oral 20 mEq oral solution. Continue to monitor. (11) Nail avulsion, toe SNOMED Code(s): 925669590 Code(s): S91.209A - UNSP OPEN WOUND OF UNSP TOE(S) W DAMAGE TO NAIL, INIT ENCNTR Status: Acute Current Visit: Yes Annotation/Comment:: X-ray of the foot yesterday was negative. The dressing has not been in place. I would like bacitracin placed after cleansing twice daily with sterile water and chlor hexidine. There is no need for nail matrix repair at this time. (12) Abrasions of multiple sites SNOMED Code(s): 194366310, 890020673 Code(s): T07.XXXA - UNSPECIFIED MULTIPLE INJURIES, INITIAL ENCOUNTER Status: Acute Current Visit: Yes Annotation/Comment:: The cellulitis of his right foot and the anterior distal tib-fib region continues to improve. There is no drainage. We will continue the ceftriaxone at this time as he appears to be responding well. (13) Thoracic compression fracture SNOMED Code(s): 968834926 Code(s): S22.000A - WEDGE COMPRESSION FRACTURE OF UNSP THORACIC VERTEBRA, INIT Status: Acute Current Visit: Yes Qualifiers: Thoracic vertebra fracture level: T8 Annotation/Comment:: No mention of thoracic spine compression fractures on the CT of the thoracic spine. This is probably identified previously on the x-ray with change in his disc space. Although with the change in his weakness in his lower extremities as well as his upper extremities I think that an MRI when available is most appropriate. I have consulted [facility] in [place] and waiting until Thursday will be appropriate. (14) Sepsis SNOMED Code(s): 14349601 Code(s): A41.9 - SEPSIS, UNSPECIFIED ORGANISM Status: Acute Current Visit: Yes Annotation/Comment:: His white blood cell count is improved to 15.6. Neutrophils at 79 lactic acid 1.5 his procalcitonin has improved down to 0.14 his CRP is down to 17.6. No other sites of infection other than cellulits of the right lower extremity. Urine and blood cultures negative no far. Continue the ceftriaxone 2 grams daily. Continue to monitor. - Problem List Review Problem List Initiated/Reviewed/Updated: Yes - My Orders Last 24 Hours: My Active Orders 03/27/21 15:00 cefTRIAXone [Rocephin] 1 gm IVPUSH BID 03/27/21 20:00 Amitriptyline [Elavil] 50 mg PO BEDTIME 03/28/21 06:15 IRON, TIBC, %SAT [REF] Stat 03/28/21 08:00 Fecal Occult Bld Diag Imm [RC] ASDIRECTED Potassium Chloride [Klor-Con M20] 20 meq PO DAILY 03/29/21 05:00 PROCALCITONIN [CHEM] DAILY - Assessment Assessment:: Assessment/plan. We will continue this patient on inpatient care to ensure that his white blood cell count continues to improve. With the concerns of his physical disability of his arms and his lower extremities I really feel that he is going to need ph ysical therapy and Occupational Therapy in a swing bed status prior to the possibility of going home. He is unable to complete his ADLs today. Waiting for PT OT evaluation for consideration of swing bed. At that time the patient's care will be taken over by his primary care provider group. VTE: Lovenox 40 mg subcutaneous daily. Sepsis: Resolving. Lactic normal. White blood cell count improving. Urine negative blood cultures negative because of sepsis from cellulitis of the right lower extremity. Continue to monitor. CODE STATUS: Full code. We will continue this patient and we should plan on discharging him from inpatient services tomorrow with continued improvement of his sepsis and his other above pathology. Patient will be assumed care by his primary care provider team has as patient will be placed in swing bed status.
[2021-03-28] MEDS: Amitriptyline 25 MG Tab PO SCH (20:58)
[2021-03-29] MEDS: oxyCODONE 5 MG Tab PO PRN ×3 (01:56→22:07)
[2021-03-29 07:56] LABS: CHLORIDE,CL 106 mmol/L (98-107); SODIUM,NA 139 mmol/L (136-145)
[2021-03-29 08:04] LABS: ANION GAP 10.6 mmol/L (5-15)
[2021-03-29] MEDS: ARIPiprazole 5 MG Tab PO SCH (08:05)
[2021-03-29] MEDS: Aspirin 81 MG Tab.EC PO SCH (08:06)
[2021-03-29] MEDS: Potassium Chloride 20 MEQ Tab.ER PO SCH (08:06)
[2021-03-29] MEDS: Carvedilol 12.5 MG Tab PO SCH ×2 (08:07→19:35)
[2021-03-29] MEDS: Isosorbide Mononitrate 60 MG Tab.ER PO SCH (08:07)
[2021-03-29] MEDS: Sertraline 100 MG Tab PO SCH (08:07)
[2021-03-29] MEDS: amLODIPine 5 MG Tab PO SCH (08:07)
[2021-03-29] MEDS ORDERED: Magnesium Oxide 400 MG Tab PO ONE ×2 (08:42→12:00)
[2021-03-29] MEDS: cefTRIAXone 1 GM Vial IVPUSH SCH ×2 (08:45→21:13)
--- NOTE | 2021-03-29 09:40 | PCM.PN ---
- General Info Date of Service: 03/29/21 Admission Dx/Problem (Free Text): CAre assumed from parting provider Patient has been admitted for right foot cellulitis, confusion, problems with using his hands. He has been admitted to the hospital, getting IV Rocephin, some improvement in the redness and whit blood cell count. He did have a marked elevated leukocytosis and CK. He had pulled out his right great toenail a week ago after an injury. He started to have redness and increased confusion. He has some confusion at baseline. History of some thoracic spine surgeries and these have rendered his hands with limited mobility but he was managing at home. 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 Feels weaker. Unsure why he had a fall at home that lead to his hospitalization but laid on the floor for part of a day. Subjective Update: Improving WBC and CK, off of IV fluids and tolerting PO fluids. Does not like to drink water, only mountain dew. NO fevers, slight improvement of the cellulitis, struggling with ambulation and cares. Functional Status: Reports: Pain Controlled, Tolerating Diet - Review of Systems General: Reports: Weakness HEENT: Reports: No Symptoms. Denies: Headaches, Rhinitis Pulmonary: Reports: No Symptoms. Denies: Shortness of Breath, Cough, Sputum Cardiovascular: Reports: No Symptoms. Denies: Chest Pain, Orthopnea Gastrointestinal: Reports: No Symptoms. Denies: Abdominal Pain, Diarrhea, Nausea, Vomiting Genitourinary: Reports: No Symptoms Musculoskeletal: Reports: Other (right foot swelling and redness, multiple abrasions noted. bilateral hand weakness, contractures) Neurological: Reports: Confusion, Difficulty Walking, Weakness - Patient Data Vitals - Most Recent: Last Vital Signs Temp 36.9 C 03/29/21 06:00 Pulse 63 03/29/21 08:07 Resp 16 03/29/21 06:00 BP 163/68 H 03/29/21 08:07 Pulse Ox 96 03/29/21 06:00 Weight - Most Recent: 78.653 kg Lab Results Last 24 Hours: Laboratory Results - last 24 hr 03/28/21 03/29/21 03/29/21 Range/Units 06:15 06:12 06:12 Sodium 139 (136-145) mmol/L Potassium 3.6 (3.5-5.1) mmol/L Chloride 106 (98-107) mmol/L Carbon Dioxide 26 (21-32) mmol/L Anion Gap 10.6 (5-15) mmol/L BUN 10 (7-18) mg/dL Creatinine 0.6 L (0.70-1.30) mg/dL Est Cr Clr Drug Dosing 106.08 mL/min Estimated GFR (MDRD) > 60 Glucose 108 H (70-99) mg/dL Calcium 8.1 L (8.5-10.1) mg/dL Magnesium (1.8-2.4) mg/dL Iron 38 L (50-150) ug/dL TIBC 185 L (261-478) ug/dL Unsaturated IBC 147 L (155-355) ug/dL Transferrin % Sat 20.5 (20.0-50.0) % Creatine Kinase 378 H* (39-308) U/L Procalcitonin <0.05 L (0.1-0.50) ng/mL 03/29/21 Range/Units 06:12 Sodium (136-145) mmol/L Potassium (3.5-5.1) mmol/L Chloride (98-107) mmol/L Carbon Dioxide (21-32) mmol/L Anion Gap (5-15) mmol/L BUN (7-18) mg/dL Creatinine (0.70-1.30) mg/dL Est Cr Clr Drug Dosing mL/min Estimated GFR (MDRD) Glucose (70-99) mg/dL Calcium (8.5-10.1) mg/dL Magnesium 1.7 L (1.8-2.4) mg/dL Iron (50-150) ug/dL TIBC (261-478) ug/dL Unsaturated IBC (155-355) ug/dL Transferrin % Sat (20.0-50.0) % Creatine Kinase (39-308) U/L Procalcitonin (0.1-0.50) ng/mL [place] Results Last 24 Hours: Microbiology 03/26/21 15:54 Aerobic Blood Culture - Preliminary Blood - Venous - Lab Draw NO GROWTH AFTER 2 DAYS Anaerobic Blood Culture - Final 03/26/21 15:47 Aerobic Blood Culture - Preliminary Blood - Venous NO GROWTH AFTER 2 DAYS Anaerobic Blood Culture - Preliminary NO GROWTH AFTER 2 DAYS Med Orders - Current: Current Medications Amitriptyline HCl (Amitriptyline 25 Mg Tab) 50 mg PO BEDTIME [facility] Last Admin: 03/28/21 20:58 Dose: 50 mg Documented by: Amlodipine Besylate (Amlodipine 5 Mg Tab) 5 mg PO DAILY [facility] Last Admin: 03/29/21 08:07 Dose: 5 mg Documented by: Aripiprazole (Aripiprazole 5 Mg Tab) 5 mg PO DAILY [facility] Last Admin: 03/29/21 08:05 Dose: 5 mg Documented by: Aspirin (Aspirin 81 Mg Tab.Ec) 81 mg PO DAILY [facility] Last Admin: 03/29/21 08:06 Dose: 81 mg Documented by: Carvedilol (Carvedilol 12.5 Mg Tab) 12.5 mg PO BIDMEALS [facility] Last Admin: 03/29/21 08:07 Dose: 12.5 mg Documented by: Ceftriaxone Sodium (Ceftriaxone 1 Gm Vial) 1 gm IVPUSH BID [facility] Last Admin: 03/29/21 08:45 Dose: 1 gm Documented by: Enoxaparin Sodium (Enoxaparin 40 Mg/0.4 Ml Syringe) 40 mg SUBCUT DAILY@1200 [facility] Last Admin: 03/28/21 13:36 Dose: 40 mg Documented by: Hydromorphone HCl (Hydromorphone 0.5 Mg/0.5 Ml Syringe) 0.5 mg IV Q4HR PRN PRN Reason: Pain Last Admin: 03/28/21 06:16 Dose: 0.5 mg Documented by: Lactated Ringer's (Ringers, Lactated) 1,000 mls @ 150 mls/hr IV ASDIRECTED [facility] Last Admin: 03/28/21 05:56 Dose: 150 mls/hr Documented by: Isosorbide Mononitrate (Isosorbide Mononitrate 60 Mg Tab.Er) 60 mg PO DAILY [facility] Last Admin: 03/29/21 08:07 Dose: 60 mg Documented by: Oxycodone HCl (Oxycodone 5 Mg Tab) 10 mg PO QID PRN PRN Reason: Pain Last Admin: 03/29/21 01:56 Dose: 10 mg Documented by: Polyethylene Glycol (Polyethylene Glycol 3350 Powder 17 Gm Packet) 17 gm PO DAILY PRN PRN Reason: Constipation Potassium Chloride (Potassium Chloride 20 Meq Tab.Er) 20 meq PO DAILY [facility] Last Admin: 03/29/21 08:06 Dose: 20 meq Documented by: Senna/Docusate Sodium (Docusate Sodium/Sennosides 50-8.6 Mg Tab) 1 tab PO BID [facility] Last Admin: 03/29/21 08:06 Dose: 1 tab Documented by: Sertraline HCl (Sertraline 100 Mg Tab) 150 mg PO DAILY [facility] Last Admin: 03/29/21 08:07 Dose: 150 mg Documented by: Discontinued Medications Ceftriaxone Sodium (Ceftriaxone 2 Gm Vial) 2 gm IVPUSH STAT ONE Stop: 03/26/21 15:11 Last Admin: 03/26/21 15:45 Dose: 2 gm Documented by: Ceftriaxone Sodium (Ceftriaxone 1 Gm Vial) 1 gm IVPUSH DAILY [facility] Diphtheria/Tetanus/Acell Pertussis (Diphtheria,Pertussis(Acell),Tetanus Vaccine 0.5 Ml Syringe) 0.5 ml IM .ONCE ONE Stop: 03/26/21 18:06 Last Admin: 03/26/21 18:53 Dose: 0.5 ml Documented by: Lactated Ringer's (Ringers, Lactated) 1,000 mls @ 999 mls/hr IV ONETIME ONE Stop: 03/26/21 16:11 Last Admin: 03/26/21 15:35 Dose: 999 mls/hr Documented by: Sodium Chloride (Normal Saline) 1,000 mls @ 125 mls/hr IV ASDIRECTED [facility] Last Admin: 03/26/21 18:52 Dose: 125 mls/hr Documented by: Potassium Chloride/Sodium Chloride (Normal Saline With 20 Meq Kcl) 1,000 mls @ 100 mls/hr IV ASDIRECTED [facility] Last Admin: 03/27/21 00:13 Dose: 100 mls/hr Documented by: Vancomycin HCl (Vancomycin 1.5 Gm/300 Ml) 300 mls @ 150 mls/hr IV ONETIME ONE Stop: 03/27/21 19:59 Vancomycin HCl (Vancomycin 1.25 Gm/250 Ml) 300 mls @ 150 mls/hr IV Q12H [facility] Iopamidol (Iopamidol 612 Mg/Ml 100 Ml Bottle) 100 ml IVPUSH ONETIME ONE Stop: 03/27/21 16:20 Last Admin: 03/27/21 16:45 Dose: 100 ml Documented by: Magnesium Oxide (Magnesium Oxide 400 Mg Tab) 800 mg PO ONETIME ONE Stop: 03/29/21 08:43 Morphine Sulfate (Morphine 2 Mg/Ml Syringe) 2 mg IVPUSH ONETIME ONE Stop: 03/26/21 16:34 Last Admin: 03/26/21 16:35 Dose: 2 mg Documented by: Morphine Sulfate (Morphine 4 Mg/Ml Syringe) 4 mg IVPUSH ONETIME ONE Stop: 03/26/21 16:53 Last Admin: 03/26/21 16:58 Dose: 4 mg Documented by: Lutein/Zeaxanthin [ Lutein-Zeaxanthin 25 -5 Mg Sfgl #Own Med# 1 each PO BID [facility] Last Admin: 03/28/21 10:35 Dose: Not Given Documented by: Oxycodone HCl (Oxycodone 5 Mg Tab) 10 mg PO QID PRN PRN Reason: Pain Oxycodone HCl (Oxycodone 5 Mg Tab) 10 mg PO QID PRN PRN Reason: Pain Potassium Chloride (Potassium Chloride 10% 20 Meq/15 Ml Soln 15 Ml Ud Cup) 20 meq PO ONETIME ONE Stop: 03/28/21 07:58 Last Admin: 03/28/21 09:48 Dose: 20 meq Documented by: Vancomycin HCl (Pharmacy To Dose - Vancomycin) 1 dose .XX ASDIRECTED [facility] - Exam General: Alert, Cooperative, No Acute Distress HEENT: Pupils Equal Lungs: Clear to Auscultation Cardiovascular: Regular Rate, Regular Rhythm GI/Abdominal Exam: Normal Bowel Sounds Extremities: Other (rigth foot with erytema of the toes, great toe most marked. No erythema outside the markered lines. erythema on the right anteior lower leg. weakness of the hands, difficutly with grasping even large objects) - Patient Data Lab Results Last 24 hrs: Laboratory Results - last 24 hr 03/28/21 03/29/21 03/29/21 Range/Units 06:15 06:12 06:12 Sodium 139 (136-145) mmol/L Potassium 3.6 (3.5-5.1) mmol/L Chloride 106 (98-107) mmol/L Carbon Dioxide 26 (21-32) mmol/L Anion Gap 10.6 (5-15) mmol/L BUN 10 (7-18) mg/dL Creatinine 0.6 L (0.70-1.30) mg/dL Est Cr Clr Drug Dosing 106.08 mL/min Estimated GFR (MDRD) > 60 Glucose 108 H (70-99) mg/dL Calcium 8.1 L (8.5-10.1) mg/dL Magnesium (1.8-2.4) mg/dL Iron 38 L (50-150) ug/dL TIBC 185 L (261-478) ug/dL Unsaturated IBC 147 L (155-355) ug/dL Transferrin % Sat 20.5 (20.0-50.0) % Creatine Kinase 378 H* (39-308) U/L Procalcitonin <0.05 L (0.1-0.50) ng/mL 03/29/21 Range/Units 06:12 Sodium (136-145) mmol/L Potassium (3.5-5.1) mmol/L Chloride (98-107) mmol/L Carbon Dioxide (21-32) mmol/L Anion Gap (5-15) mmol/L BUN (7-18) mg/dL Creatinine (0.70-1.30) mg/dL Est Cr Clr Drug Dosing mL/min Estimated GFR (MDRD) Glucose (70-99) mg/dL Calcium (8.5-10.1) mg/dL Magnesium 1.7 L (1.8-2.4) mg/dL Iron (50-150) ug/dL TIBC (261-478) ug/dL Unsaturated IBC (155-355) ug/dL Transferrin % Sat (20.0-50.0) % Creatine Kinase (39-308) U/L Procalcitonin (0.1-0.50) ng/mL Result Diagrams: 03/28/21 06:15 03/29/21 06:12 Quoc Results Last 24 hrs: Microbiology 03/26/21 15:54 Aerobic Blood Culture - Preliminary Blood - Venous - Lab Draw NO GROWTH AFTER 2 DAYS Anaerobic Blood Culture - Final 03/26/21 15:47 Aerobic Blood Culture - Preliminary Blood - Venous NO GROWTH AFTER 2 DAYS Anaerobic Blood Culture - Preliminary NO GROWTH AFTER 2 DAYS Sepsis Event Note - Evaluation Sepsis Screening Result: Possible Sepsis Risk - Focused Exam Vital Signs: Vital Signs Temp Pulse Pulse Resp BP BP Pulse Ox 03/29/21 08:07 63 163/68 H 03/29/21 06:00 36.9 C 63 16 163/68 H 96 - Problem List & Annotations (1) Cellulitis of right foot SNOMED Code(s): 477306304 Code(s): L03.115 - CELLULITIS OF RIGHT LOWER LIMB Status: Acute Current Visit: Yes Annotation/Comment:: 03/29/2021 Cellulities of the right foot not worsening, but stagnant, initial x-ray without osteomyelitis, concern for need for advanced imaging. Leukocytosis improving, blood cultures are negative. no wound culture. Will continue IV rocephin, add bactrim DS. needs further cares, consider podiatry consult Cellulitis of the right foot and anterior tib-fib improving. Continue Rocephin 1 g twice daily (2) Rhabdomyolysis SNOMED Code(s): 411253139 Code(s): M62.82 - RHABDOMYOLYSIS Status: Acute Current Visit: Yes Qualifiers: Rhabdomyolysis type: traumatic Encounter type: initial encounter Qualified Code(s): T79.6XXA - Traumatic ischemia of muscle, initial encounter Annotation/Comment:: 03/29/2021 CK improving, IV fluids stopped. TAking PO well. Will recheck tomorrow. Biggest kamar will be lack of desire for water, prefers Mountain Dew. His CPK is down to 711 much improved from yesterday at 1531. He is not currently getting any fluids although he is taking oral fluids well. Continue to monitor. (3) Musculoskeletal pain SNOMED Code(s): 353694158 Code(s): M79.1 - MYALGIA * DO NOT USE * Status: Chronic Priority: Medium Current Visit: No Onset Date: 10/26/13 Annotation/Comment:: weakness and lack of mobility and coordination of the hands, chronically, but worse. Unable to care for self. May need mobility aids/splints, foccused OT and PT and probable placement due to inability to care for self at home alone - Problem List Review Problem List Initiated/Reviewed/Updated: Yes - My Orders Last 24 Hours: Active Orders - 24 Hr 03/29/21 10:07 Dietary Supplements [RC] BIDMEALS 03/29/21 10:11 Communication Order [RC] PER UNIT ROUTINE 03/29/21 10:15 Sulfamethoxazole/Trimethoprim [Septra DS] 1 tab PO BID 03/30/21 05:11 CBC WITH AUTO DIFF [HEME] AM CREATINE KINASE,CK [CHEM] AM 03/31/21 05:11 CREATINE KINASE,CK [CHEM] AM - Assessment Assessment:: Assessment/plan. We will continue this patient on inpatient care to ensure that his white blood cell count continues to improve. With the concerns of his physical disability of his arms and his lower extremities I really feel that he is going to need physical therapy and Occupational Therapy in a swing bed status prior to the possibility of going home. He is unable to complete his ADLs today. Waiting for PT OT evaluation for consideration of swing bed. At that time the patient's care will be taken over by his primary care provider group. VTE: Lovenox 40 mg subcutaneous daily. Sepsis: Resolving. Lactic normal. White blood cell count improving. Urine negative blood cultures negative because of sepsis from cellulitis of the right lower extremity. Continue to monitor. CODE STATUS: Full code. We will continue this patient and we should plan on discharging him from inpatient services tomorrow with continued improvement of his sepsis and his other above pathology. Patient will be assumed care by his primary care provider team has as patient will be placed in swing bed status. 03/29/2021 Patient is not well enough for swingbed status. Concern need for placement, focused OT/PT and splint fabrication. Unable to do ADL's pateitn agreeable to [facility] placement. Needs added antibiotics. podiatry consult, concern for developing osteomyelitis, call to [facility] for transfer for definitive cares. Hospital is on a holding process. They will call us back when bed is available.
[2021-03-29] MEDS: Sulfamethoxazole/Trimethoprim 800-160 MG Tab PO SCH ×2 (12:06→19:33)
[2021-03-29] MEDS: Enoxaparin 40 MG/0.4 ML Syringe SUBCUT SCH (12:07)
[2021-03-29] MEDS: HYDROmorphone 0.5 MG/0.5 ML Syringe IV PRN (15:57)
[2021-03-29] MEDS: Amitriptyline 25 MG Tab PO SCH ×2 (19:36→21:36)
[2021-03-30] MEDS: oxyCODONE 5 MG Tab PO PRN ×3 (04:38→19:36)
[2021-03-30] MEDS: Sertraline 100 MG Tab PO SCH (09:10)
[2021-03-30] MEDS: Aspirin 81 MG Tab.EC PO SCH (09:10)
[2021-03-30] MEDS: amLODIPine 5 MG Tab PO SCH (09:12)
[2021-03-30] MEDS: Potassium Chloride 20 MEQ Tab.ER PO SCH (09:12)
[2021-03-30] MEDS: Carvedilol 12.5 MG Tab PO SCH ×2 (09:12→17:51)
[2021-03-30] MEDS: Isosorbide Mononitrate 60 MG Tab.ER PO SCH (09:13)
[2021-03-30] MEDS: Sulfamethoxazole/Trimethoprim 800-160 MG Tab PO SCH ×2 (09:13→19:36)
[2021-03-30] MEDS: ARIPiprazole 5 MG Tab PO SCH (09:13)
[2021-03-30] MEDS: cefTRIAXone 1 GM Vial IVPUSH SCH ×2 (09:14→21:27)
[2021-03-30] MEDS: Enoxaparin 40 MG/0.4 ML Syringe SUBCUT SCH (12:06)
[2021-03-31] MEDS: oxyCODONE 5 MG Tab PO PRN ×3 (02:42→15:52)
[2021-03-31] MEDS: ARIPiprazole 5 MG Tab PO SCH (07:41)
[2021-03-31] MEDS: Potassium Chloride 20 MEQ Tab.ER PO SCH (07:41)
[2021-03-31] MEDS: Aspirin 81 MG Tab.EC PO SCH (07:41)
[2021-03-31] MEDS: Sertraline 100 MG Tab PO SCH (07:41)
[2021-03-31] MEDS: Sulfamethoxazole/Trimethoprim 800-160 MG Tab PO SCH (07:43)
[2021-03-31] MEDS: Carvedilol 12.5 MG Tab PO SCH (07:43)
[2021-03-31] MEDS: amLODIPine 5 MG Tab PO SCH (07:44)
[2021-03-31] MEDS: Isosorbide Mononitrate 60 MG Tab.ER PO SCH (07:44)
[2021-03-31] MEDS: cefTRIAXone 1 GM Vial IVPUSH SCH (07:48)
[2021-03-31] MEDS ORDERED: Iopamidol 755 Mg/ML 100 ML Bottle IVPUSH ONE (10:58)
--- NOTE | 2021-03-31 11:49 | CT ---
[id number] CT/CT Head WO IV EXAM: CT Head WO IV CLINICAL DATA: NEUROLOGIC DEFICIT COMPARISON: CORRELATION IS MADE WITH 2020 FINDINGS: There is no mass or mass effect. There is no hemorrhage or hydrocephalus. There are no extra-axial fluid collections. There are no sites of abnormal attenuation. IMPRESSION: NO PLAIN CT EVIDENCE OF ACUTE INTRACRANIAL PROCESS. Kobi Garcia MD 03/31/21 [id number] Thank you for allowing us to participate in the care of your patient.
[2021-03-31] MEDS: Enoxaparin 40 MG/0.4 ML Syringe SUBCUT SCH (12:06)
--- NOTE | 2021-03-31 12:56 | CT ---
[id number] CT/CTA Head Exam: CTA Head Clinical Data: NEUROLOGIC DEFICIT COMPARISON: CORRELATION IS MADE WITH THE EARLIER PLAIN CT BRAIN FINDINGS: There is no intracranial large vessel occlusion There is atheromatous disease of the cervical carotid bilaterally There is less than 50% stenosis of the cervical internal carotid bilaterally The vertebral basilar system is patent There are degenerative changes of the cervical spine IMPRESSION: NO INTRACRANIAL LARGE VESSEL OCCLUSION Kobi Garcia MD 03/31/21 [phone] Thank you for allowing us to participate in the care of your patient.
--- NOTE | 2021-03-31 13:01 | CT ---
[id number] CT/CTA Carotid Arteries Exam: CTA Carotid Arteries Clinical Data: NEUROLOGIC DEFICIT COMPARISON: CORRELATION IS MADE WITH THE OTHER IMAGING STUDIES TODAY FINDINGS: Atheromatous disease of the cervical carotid system is seen bilaterally There is less than 50% narrowing of the cervical carotid IMPRESSION: LESS THAN 50% NARROWING OF THE CERVICAL INTERNAL CAROTID BILATERALLY Kobi Garcia MD 03/31/21 [id number] Thank you for allowing us to participate in the care of your patient.
--- NOTE | 2021-03-31 14:25 | PCM.PN ---
- General Info Date of Service: 03/31/21 Admission Dx/Problem (Free Text): encephalopathy, difficulty walking, right foot cellulitis Subjective Update: foot is improving with bactrim and rocephin. Cultures are negative. Still unable to stand or hold food in his hands. feeling better. Labs normalized. Continues to await transfer. Stopped elavil, had trouble sleeping Functional Status: Reports: Pain Controlled, Tolerating Diet. Denies: Ambulating - Review of Systems General: Reports: No Symptoms HEENT: Reports: No Symptoms Pulmonary: Reports: No Symptoms Cardiovascular: Reports: No Symptoms Gastrointestinal: Reports: No Symptoms Genitourinary: Reports: No Symptoms Skin: Reports: Other (improving cellulits lower leg, foot feels better) Neurological: Reports: Difficulty Walking, Weakness, Other (difficulty grasping, full assist of two, can not stand) Psychiatric: Reports: Confusion - Patient Data Vitals - Most Recent: Last Vital Signs Temp 36.5 C 03/31/21 10:00 Pulse 60 03/31/21 10:00 Resp 14 03/31/21 10:00 BP 131/54 L 03/31/21 10:00 Pulse Ox 100 03/31/21 10:00 Weight - Most Recent: 74.389 kg I&O - Last 24 Hours: Intake & Output 03/30/21 03/31/21 03/31/21 22:59 06:59 14:59 Intake Total 0 200 Output Total 400 500 Balance -400 -300 Imaging Impressions - Last 24 Hours: Ct head without acute changes] CTA head, no large vessel occulsion CTA neck with 50% bilateral carotid stenosis No acute changes interpreted by radiology Lab Results Last 24 Hours: Laboratory Results - last 24 hr 03/31/21 Range/Units 07:23 Creatine Kinase 124 (39-308) U/L [place] Results Last 24 Hours: Microbiology 03/26/21 15:54 Aerobic Blood Culture - Preliminary Blood - Venous - Lab Draw NO GROWTH AFTER 4 DAYS Anaerobic Blood Culture - Final 03/26/21 15:47 Aerobic Blood Culture - Preliminary Blood - Venous NO GROWTH AFTER 4 DAYS Anaerobic Blood Culture - Preliminary NO GROWTH AFTER 4 DAYS Med Orders - Current: Current Medications Amlodipine Besylate (Amlodipine 5 Mg Tab) 5 mg PO DAILY [facility] Last Admin: 03/31/21 07:44 Dose: 5 mg Documented by: Aripiprazole (Aripiprazole 5 Mg Tab) 5 mg PO DAILY [facility] Last Admin: 03/31/21 07:41 Dose: 5 mg Documented by: Aspirin (Aspirin 81 Mg Tab.Ec) 81 mg PO DAILY [facility] Last Admin: 03/31/21 07:41 Dose: 81 mg Documented by: Carvedilol (Carvedilol 12.5 Mg Tab) 12.5 mg PO BIDMEALS [facility] Last Admin: 03/31/21 07:43 Dose: Not Given Documented by: Ceftriaxone Sodium (Ceftriaxone 1 Gm Vial) 1 gm IVPUSH BID [facility] Last Admin: 03/31/21 07:48 Dose: 1 gm Documented by: Enoxaparin Sodium (Enoxaparin 40 Mg/0.4 Ml Syringe) 40 mg SUBCUT DAILY@1200 [facility] Last Admin: 03/31/21 12:06 Dose: 40 mg Documented by: Hydromorphone HCl (Hydromorphone 0.5 Mg/0.5 Ml Syringe) 0.5 mg IV Q4HR PRN PRN Reason: Pain Last Admin: 03/29/21 15:57 Dose: 0.5 mg Documented by: Lactated Ringer's (Ringers, Lactated) 1,000 mls @ 150 mls/hr IV ASDIRECTED [facility] Last Admin: 03/28/21 05:56 Dose: 150 mls/hr Documented by: Isosorbide Mononitrate (Isosorbide Mononitrate 60 Mg Tab.Er) 60 mg PO DAILY [facility] Last Admin: 03/31/21 07:44 Dose: 60 mg Documented by: Melatonin (Melatonin 3 Mg Tab) 6 mg PO BEDTIME [facility] Oxycodone HCl (Oxycodone 5 Mg Tab) 10 mg PO QID PRN PRN Reason: Pain Last Admin: 03/31/21 08:54 Dose: 10 mg Documented by: Polyethylene Glycol (Polyethylene Glycol 3350 Powder 17 Gm Packet) 17 gm PO DAILY PRN PRN Reason: Constipation Potassium Chloride (Potassium Chloride 20 Meq Tab.Er) 20 meq PO DAILY [facility] Last Admin: 03/31/21 07:41 Dose: 20 meq Documented by: Senna/Docusate Sodium (Docusate Sodium/Sennosides 50-8.6 Mg Tab) 1 tab PO BID [facility] Last Admin: 03/31/21 07:42 Dose: 1 tab Documented by: Sertraline HCl (Sertraline 100 Mg Tab) 150 mg PO DAILY [facility] Last Admin: 03/31/21 07:41 Dose: 150 mg Documented by: Trimethoprim/Sulfamethoxazole (Sulfamethoxazole/Trimethoprim 800-160 Mg Tab) 1 tab PO BID [facility] Last Admin: 03/31/21 07:43 Dose: 1 tab Documented by: Discontinued Medications Amitriptyline HCl (Amitriptyline 25 Mg Tab) 50 mg PO BEDTIME [facility] Last Admin: 03/29/21 21:36 Dose: Not Given Documented by: Ceftriaxone Sodium (Ceftriaxone 2 Gm Vial) 2 gm IVPUSH STAT ONE Stop: 03/26/21 15:11 Last Admin: 03/26/21 15:45 Dose: 2 gm Documented by: Ceftriaxone Sodium (Ceftriaxone 1 Gm Vial) 1 gm IVPUSH DAILY [facility] Diphtheria/Tetanus/Acell Pertussis (Diphtheria,Pertussis(Acell),Tetanus Vaccine 0.5 Ml Syringe) 0.5 ml IM .ONCE ONE Stop: 03/26/21 18:06 Last Admin: 03/26/21 18:53 Dose: 0.5 ml Documented by: Lactated Ringer's (Ringers, Lactated) 1,000 mls @ 999 mls/hr IV ONETIME ONE Stop: 03/26/21 16:11 Last Admin: 03/26/21 15:35 Dose: 999 mls/hr Documented by: Sodium Chloride (Normal Saline) 1,000 mls @ 125 mls/hr IV ASDIRECTED [facility] Last Admin: 03/26/21 18:52 Dose: 125 mls/hr Documented by: Potassium Chloride/Sodium Chloride (Normal Saline With 20 Meq Kcl) 1,000 mls @ 100 mls/hr IV ASDIRECTED [facility] Last Admin: 03/27/21 00:13 Dose: 100 mls/hr Documented by: Vancomycin HCl (Vancomycin 1.5 Gm/300 Ml) 300 mls @ 150 mls/hr IV ONETIME ONE Stop: 03/27/21 19:59 Vancomycin HCl (Vancomycin 1.25 Gm/250 Ml) 300 mls @ 150 mls/hr IV Q12H [facility] Iopamidol (Iopamidol 612 Mg/Ml 100 Ml Bottle) 100 ml IVPUSH ONETIME ONE Stop: 03/27/21 16:20 Last Admin: 03/27/21 16:45 Dose: 100 ml Documented by: Iopamidol (Iopamidol 755 Mg/Ml 100 Ml Bottle) 100 ml IVPUSH ONETIME ONE Stop: 03/31/21 10:59 Last Admin: 03/31/21 11:46 Dose: 100 ml Documented by: Magnesium Oxide (Magnesium Oxide 400 Mg Tab) 800 mg PO ONETIME ONE Stop: 03/29/21 08:43 Last Admin: 03/29/21 12:06 Dose: 800 mg Documented by: Magnesium Oxide (Magnesium Oxide 400 Mg Tab) 800 mg PO ONETIME ONE Stop: 03/29/21 12:01 Last Admin: 03/29/21 12:07 Dose: Not Given Documented by: Morphine Sulfate (Morphine 2 Mg/Ml Syringe) 2 mg IVPUSH ONETIME ONE Stop: 03/26/21 16:34 Last Admin: 03/26/21 16:35 Dose: 2 mg Documented by: Morphine Sulfate (Morphine 4 Mg/Ml Syringe) 4 mg IVPUSH ONETIME ONE Stop: 03/26/21 16:53 Last Admin: 03/26/21 16:58 Dose: 4 mg Documented by: Lutein/Zeaxanthin [ Lutein-Zeaxanthin 25 -5 Mg Sfgl #Own Med# 1 each PO BID [facility] Last Admin: 03/28/21 10:35 Dose: Not Given Documented by: Oxycodone HCl (Oxycodone 5 Mg Tab) 10 mg PO QID PRN PRN Reason: Pain Oxycodone HCl (Oxycodone 5 Mg Tab) 10 mg PO QID PRN PRN Reason: Pain Potassium Chloride (Potassium Chloride 10% 20 Meq/15 Ml Soln 15 Ml Ud Cup) 20 meq PO ONETIME ONE Stop: 03/28/21 07:58 Last Admin: 03/28/21 09:48 Dose: 20 meq Documented by: Vancomycin HCl (Pharmacy To Dose - Vancomycin) 1 dose .XX ASDIRECTED [facility] - Exam General: Alert, No Acute Distress HEENT: Pupils Equal Neck: Supple Lungs: Clear to Auscultation, Rub Cardiovascular: Regular Rate, Regular Rhythm GI/Abdominal Exam: Normal Bowel Sounds, Soft, No Distention Extremities: Other (able to move upper and lower extremities, but difficulty with the legs. Seems to lack proprioception no fine motor, able to give me a ok sign but the thumb is pinched flat. coordination of the lower extermities is limited) - Patient Data Lab Results Last 24 hrs: Laboratory Results - last 24 hr 03/31/21 Range/Units 07:23 Creatine Kinase 124 (39-308) U/L Result Diagrams: 03/30/21 07:35 03/29/21 06:12 Quoc Results Last 24 hrs: Microbiology 03/26/21 15:54 Aerobic Blood Culture - Preliminary Blood - Venous - Lab Draw NO GROWTH AFTER 4 DAYS Anaerobic Blood Culture - Final 03/26/21 15:47 Aerobic Blood Culture - Preliminary Blood - Venous NO GROWTH AFTER 4 DAYS Anaerobic Blood Culture - Preliminary NO GROWTH AFTER 4 DAYS Sepsis Event Note - Evaluation Sepsis Screening Result: No Definite Risk - Focused Exam Vital Signs: Vital Signs Temp Pulse Pulse Resp BP BP Pulse Ox 03/31/21 10:00 36.5 C 60 14 131/54 L 100 03/31/21 07:44 138/57 L 03/31/21 07:43 57 L 138/57 L 03/31/21 05:25 36.5 C 60 18 138/57 L 96 - Problem List & Annotations (1) Cellulitis of right foot SNOMED Code(s): 623921738 Code(s): L03.115 - CELLULITIS OF RIGHT LOWER LIMB Status: Acute Priority: Medium Current Visit: Yes Annotation/Comment:: 03/31/2021 no change 03/30/2021 improved celulitis, continue rocpehin and bactrim 03/29/2021 Cellulities of the right foot not worsening, but stagnant, initial x-ray without osteomyelitis, concern for need for advanced imaging. Leukocytosis improving, blood cultures are negative. no wound culture. Will continue IV rocephin, add bactrim DS. needs further cares, consider podiatry consult Cellulitis of the right foot and anterior tib-fib improving. Continue Rocephin 1 g twice daily (2) Rhabdomyolysis SNOMED Code(s): 690293586 Code(s): M62.82 - RHABDOMYOLYSIS Status: Acute Priority: Low Current Visit: Yes Qualifiers: Rhabdomyolysis type: traumatic Encounter type: initial encounter Ignacio lified Code(s): T79.6XXA - Traumatic ischemia of muscle, initial encounter Annotation/Comment:: 03/31/2021 normal level, resolved 03/30/2021 improving, taking po fluids 03/29/2021 CK improving, IV fluids stopped. TAking PO well. Will recheck tomorrow. Biggest kamar will be lack of desire for water, prefers Mountain Dew. His CPK is down to 711 much improved from yesterday at 1531. He is not currently getting any fluids although he is taking oral fluids well. Continue to monitor. (3) Musculoskeletal pain SNOMED Code(s): 933529791 Code(s): M79.1 - MYALGIA * DO NOT USE * Status: Chronic Priority: Medium Current Visit: No Onset Date: 10/26/13 Annotation/Comment:: 03/31/2021 no change, however continued concer for other underlying neurlogical condition 03/30/2021 no change, await transfer weakness and lack of mobility and coordination of the hands, chronically, but worse. Unable to care for self. May need mobility aids/splints, foccused OT and PT and probable placement due to inability to care for self at home alone - Problem List Review Problem List Initiated/Reviewed/Updated: Yes - My Orders Last 24 Hours: My Active Orders 03/31/21 20:00 Melatonin 6 mg PO BEDTIME - Assessment Assessment:: Call to [facility] one call today ( [facility] still not accepting patients). Dr. Escamilla, hospitalist accept for transfer as soon as a bed opens up at 13:30. They will call use when available. Patient stable Assessment/plan. We will continue this patient on inpatient care to ensure that his white blood cell count continues to improve. With the concerns of his physical disability of his arms and his lower extremities I really feel that he is going to need physical therapy and Occupational Therapy in a swing bed status prior to the possibility of going home. He is unable to complete his ADLs today. Waiting for PT OT evaluation for consideration of swing bed. At that time the patient's care will be taken over by his primary care provider group. VTE: Lovenox 40 mg subcutaneous daily. Sepsis: Resolving. Lactic normal. White blood cell count improving. Urine negative blood cultures negative because of sepsis from cellulitis of the right lower extremity. Continue to monitor. CODE STATUS: Full code. We will continue this patient and we should plan on discharging him from inpatient services tomorrow with continued improvement of his sepsis and his other above pathology. Patient will be assumed care by his primary care provider team has as patient will be placed in swing bed status. 03/29/2021 Patient is not well enough for swingbed status. Concern need for placement, focused OT/PT and splint fabrication. Unable to do ADL's pateitn agreeable to jail placement. Needs added antibiotics. podiatry consult, concern for developing osteomyelitis, call to [facility] for transfer for definitive cares. Hospital is on a holding process. They will call us back when bed is available. - Plan Plan:: transfer when bed available at [facility]. no change no cares
--- NOTE | 2021-03-31 14:33 | PCM.SN.2 ---
- Free Text/Narrative Note: Simple progress note from 03/30/2021 S : patient is improving from baseline. less confusion. Elavil will be stopped. labs are improving. STill unable to stand.awaiting transfer O: VSS, RRR, right foot with improved swellin and redness. Stll unable to weight bear or hold food to feed self. Labs better A; encephalopathy and muscular weakness unknown cause, needing further work up with neurology, cellulitis right foot improving with antibiotics, normal qhite count P: await transfer to [facility]. Did call [facility] and they did not have beds either. Not appropriate for swingbed until further evaluation completed on neurological problem
--- NOTE | 2021-03-31 14:54 | PCM.DCSUM1 ---
Discharge Summary - Hospital Course Free Text/Narrative:: TRansfer to [facility] approved. Will be sent via ambulance HPI Initial Comments: see progress note from today Diagnosis: Stroke: No Modified [place] Scale: Mod.Sev.Disability ;Unable to Walk/Attend Bodily Needs W/O Assistance Modified [place] Scale Score: 4 - Discharge Data Discharge Date: 03/31/21 Discharge Disposition: DC/Tfer to Acute Hospital 02 Condition: Good - Referral to Home Health Primary Care Physician: Mariya Neal, DO - Discharge Diagnosis/Problem(s) (1) Cellulitis of right foot SNOMED Code(s): 419823994 ICD Code: L03.115 - CELLULITIS OF RIGHT LOWER LIMB Status: Acute Priority: Medium Current Visit: Yes Problem Details: 03/31/2021 no change 03/30/2021 improved celulitis, continue rocpehin and bactrim 03/29/2021 Cellulities of the right foot not worsening, but stagnant, initial x-ray without osteomyelitis, concern for need for advanced imaging. Leukocytosis improving, blood cultures are negative. no wound culture. Will continue IV rocephin, add bactrim DS. needs further cares, consider podiatry consult Cellulitis of the right foot and anterior tib-fib improving. Continue Rocephin 1 g twice daily (2) Rhabdomyolysis SNOMED Code(s): 686544057 ICD Code: M62.82 - RHABDOMYOLYSIS Status: Acute Priority: Low Current Visit: Yes Problem Details: 03/31/2021 normal level, resolved 03/30/2021 improving, taking po fluids 03/29/2021 CK improving, IV fluids stopped. TAking PO well. Will recheck tomorrow. Biggest kamar will be lack of desire for water, prefers Mountain Dew. His CPK is down to 711 much improved from yesterday at 1531. He is not currently getting any fluids although he is taking oral fluids well. Continue to monitor. Qualifiers: Rhabdomyolysis type: traumatic Encounter type: initial encounter Qualified Code(s): T79.6XXA - Traumatic ischemia of muscle, initial encounter (3) Musculoskeletal pain SNOMED Code(s): 604366413 ICD Code: M79.1 - MYALGIA * DO NOT USE * Status: Chronic Priority: Medium Current Visit: No Onset Date: 10/26/13 Problem Details: 03/31/2021 no change, however continued concern for other underlying neurlogical condition, transfer today for further evaluation 03/30/2021 no change, await transfer weakness and lack of mobility and coordination of the hands, chronically, but worse. Unable to care for self. May need mobility aids/splints, foccused OT and PT and probable placement due to inability to care for self at home alone - Patient Summary/Data Consults: Consultations 03/26/21 20:08 Consult to Case Management/Copy Center Specialist [CONS] Routine OT Evaluation and Treatment [CONS] Routine PT Evaluation and Treatment [CONS] Routine - Patient Instructions Diet: Usual Diet as Tolerated - Discharge Plan Home Medications: Home Meds carvediloL [Coreg] 12.5 mg PO BID 11/08/13 [History] Isosorbide Mononitrate [Isosorbide Mononitrate ER] 60 mg PO DAILY 08/30/16 [Hist ory] Sertraline [Zoloft] 150 mg PO DAILY 08/30/16 [History] amLODIPine [Norvasc] 5 mg PO DAILY 08/30/16 [History] oxyCODONE HCl [Oxycodone HCl] 10 mg PO QID PRN 08/30/16 [History] Amitriptyline [Elavil] 50 mg PO BEDTIME 06/17/18 [History] Aspirin [Halfprin] 81 mg PO DAILY 06/17/18 [History] Lutein/Zeaxanthin [Lutein-Zeaxanthin 25-5 mg Sfgl] 1 each PO BID 06/17/18 [History] Nitroglycerin 0.4 mg SL ASDIRECTED PRN 06/17/18 [History] Sennosides/Docusate Sodium [Sennosides-Docusate Sodium] 1 each PO BID 06/17/18 [History] atorvaSTATin Calcium [Lipitor] 40 mg PO DAILY 06/17/18 [History] ARIPiprazole [Abilify] 5 mg PO DAILY 03/26/21 [History] Forms: ED Department Discharge, Interfacility Transfer EMTALA Referrals: Mariya Neal DO [Primary Care Provider] - - Discharge Summary/Plan Comment DC Time >30 min.: No Total # of Minutes for Discharge Time: 15 Discharge Summary/Plan Comment: Transfer to [place] [facility] Info Date of Service: 03/31/21 Admission Dx/Problem (Free Text: encephopathy, weakness, confusion, cellulitis Functional Status: Reports: Pain Controlled - Review of Systems General: Reports: No Symptoms HEENT: Reports: No Symptoms Pulmonary: Reports: No Symptoms Cardiovascular: Reports: No Symptoms Gastrointestinal: Reports: No Symptoms Genitourinary: Reports: No Symptoms Skin: Reports: Other (cellulitis improving, open sore) Neurological: Reports: Difficulty Walking, Weakness - Patient Data Vitals - Most Recent: Last Vital Signs Temp 36.5 C 03/31/21 10:00 Pulse 60 03/31/21 10:00 Resp 14 03/31/21 10:00 BP 131/54 L 03/31/21 10:00 Pulse Ox 100 03/31/21 10:00 Weight - Most Recent: 74.389 kg I&O - Last 24 hours: Intake & Output 03/30/21 03/31/21 03/31/21 22:59 06:59 14:59 Intake Total 0 200 Output Total 400 500 Balance -400 -300 Lab Results - Last 24 hrs: Laboratory Results - last 24 hr 03/31/21 Range/Units 07:23 Creatine Kinase 124 (39-308) U/L SHYANNE Results - Last 24 hrs: Microbiology 03/26/21 15:54 Aerobic Blood Culture - Preliminary Blood - Venous - Lab Draw NO GROWTH AFTER 4 DAYS Anaerobic Blood Culture - Final 03/26/21 15:47 Aerobic Blood Culture - Preliminary Blood - Venous NO GROWTH AFTER 4 DAYS Anaerobic Blood Culture - Preliminary NO GROWTH AFTER 4 DAYS Med Orders - Current: Current Medications Amlodipine Besylate (Amlodipine 5 Mg Tab) 5 mg PO DAILY [facility] Last Admin: 03/31/21 07:44 Dose: 5 mg Documented by: Aripiprazole (Aripiprazole 5 Mg Tab) 5 mg PO DAILY [facility] Last Admin: 03/31/21 07:41 Dose: 5 mg Documented by: Aspirin (Aspirin 81 Mg Tab.Ec) 81 mg PO DAILY [facility] Last Admin: 03/31/21 07:41 Dose: 81 mg Documented by: Carvedilol (Carvedilol 12.5 Mg Tab) 12.5 mg PO BIDMEALS [facility] Last Admin: 03/31/21 07:43 Dose: Not Given Documented by: Ceftriaxone Sodium (Ceftriaxone 1 Gm Vial) 1 gm IVPUSH BID [facility] Last Admin: 03/31/21 07:48 Dose: 1 gm Documented by: Enoxaparin Sodium (Enoxaparin 40 Mg/0.4 Ml Syringe) 40 mg SUBCUT DAILY@1200 [facility] Last Admin: 03/31/21 12:06 Dose: 40 mg Documented by: Hydromorphone HCl (Hydromorphone 0.5 Mg/0.5 Ml Syringe) 0.5 mg IV Q4HR PRN PRN Reason: Pain Last Admin: 03/29/21 15:57 Dose: 0.5 mg Documented by: Lactated Ringer's (Ringers, Lactated) 1,000 mls @ 150 mls/hr IV ASDIRECTED [facility] Last Admin: 03/28/21 05:56 Dose: 150 mls/hr Documented by: Isosorbide Mononitrate (Isosorbide Mononitrate 60 Mg Tab.Er) 60 mg PO DAILY [facility] Last Admin: 03/31/21 07:44 Dose: 60 mg Documented by: Melatonin (Melatonin 3 Mg Tab) 6 mg PO BEDTIME [facility] Oxycodone HCl (Oxycodone 5 Mg Tab) 10 mg PO QID PRN PRN Reason: Pain Last Admin: 03/31/21 08:54 Dose: 10 mg Documented by: Polyethylene Glycol (Polyethylene Glycol 3350 Powder 17 Gm Packet) 17 gm PO DAILY PRN PRN Reason: Constipation Potassium Chloride (Potassium Chloride 20 Meq Tab.Er) 20 meq PO DAILY [facility] Last Admin: 03/31/21 07:41 Dose: 20 meq Documented by: Senna/Docusate Sodium (Docusate Sodium/Sennosides 50-8.6 Mg Tab) 1 tab PO BID [facility] Last Admin: 03/31/21 07:42 Dose: 1 tab Documented by: Sertraline HCl (Sertraline 100 Mg Tab) 150 mg PO DAILY [facility] Last Admin: 03/31/21 07:41 Dose: 150 mg Documented by: Trimethoprim/Sulfamethoxazole (Sulfamethoxazole/Trimethoprim 800-160 Mg Tab) 1 tab PO BID [facility] Last Admin: 03/31/21 07:43 Dose: 1 tab Documented by: Discontinued Medications Amitriptyline HCl (Amitriptyline 25 Mg Tab) 50 mg PO BEDTIME [facility] Last Admin: 03/29/21 21:36 Dose: Not Given Documented by: Ceftriaxone Sodium (Ceftriaxone 2 Gm Vial) 2 gm IVPUSH STAT ONE Stop: 03/26/21 15:11 Last Admin: 03/26/21 15:45 Dose: 2 gm Documented by: Ceftriaxone Sodium (Ceftriaxone 1 Gm Vial) 1 gm IVPUSH DAILY [facility] Diphtheria/Tetanus/Acell Pertussis (Diphtheria,Pertussis(Acell),Tetanus Vaccine 0.5 Ml Syringe) 0.5 ml IM .ONCE ONE Stop: 03/26/21 18:06 Last Admin: 03/26/21 18:53 Dose: 0.5 ml Documented by: Lactated Ringer's (Ringers, Lactated) 1,000 mls @ 999 mls/hr IV ONETIME ONE Stop: 03/26/21 16:11 Last Admin: 03/26/21 15:35 Dose: 999 mls/hr Documented by: Sodium Chloride (Normal Saline) 1,000 mls @ 125 mls/hr IV ASDIRECTED [facility] Last Admin: 03/26/21 18:52 Dose: 125 mls/hr Documented by: Potassium Chloride/Sodium Chloride (Normal Saline With 20 Meq Kcl) 1,000 mls @ 100 mls/hr IV ASDIRECTED [facility] Last Admin: 03/27/21 00:13 Dose: 100 mls/hr Documented by: Vancomycin HCl (Vancomycin 1.5 Gm/300 Ml) 300 mls @ 150 mls/hr IV ONETIME ONE Stop: 03/27/21 19:59 Vancomycin HCl (Vancomycin 1.25 Gm/250 Ml) 300 mls @ 150 mls/hr IV Q12H [facility] Iopamidol (Iopamidol 612 Mg/Ml 100 Ml Bottle) 100 ml IVPUSH ONETIME ONE Stop: 03/27/21 16:20 Last Admin: 03/27/21 16:45 Dose: 100 ml Documented by: Iopamidol (Iopamidol 755 Mg/Ml 100 Ml Bottle) 100 ml IVPUSH ONETIME ONE Stop: 03/31/21 10:59 Last Admin: 03/31/21 11:46 Dose: 100 ml Documented by: Magnesium Oxide (Magnesium Oxide 400 Mg Tab) 800 mg PO ONETIME ONE Stop: 03/29/21 08:43 Last Admin: 03/29/21 12:06 Dose: 800 mg Documented by: Magnesium Oxide (Magnesium Oxide 400 Mg Tab) 800 mg PO ONETIME ONE Stop: 03/29/21 12:01 Last Admin: 03/29/21 12:07 Dose: Not Given Documented by: Morphine Sulfate (Morphine 2 Mg/Ml Syringe) 2 mg IVPUSH ONETIME ONE Stop: 03/26/21 16:34 Last Admin: 03/26/21 16:35 Dose: 2 mg Documented by: Morphine Sulfate (Morphine 4 Mg/Ml Syringe) 4 mg IVPUSH ONETIME ONE Stop: 03/26/21 16:53 Last Admin: 03/26/21 16:58 Dose: 4 mg Documented by: Lutein/Zeaxanthin [ Lutein-Zeaxanthin 25 -5 Mg Sfgl #Own Med# 1 each PO BID [facility] Last Admin: 03/28/21 10:35 Dose: Not Given Documented by: Oxycodone HCl (Oxycodone 5 Mg Tab) 10 mg PO QID PRN PRN Reason: Pain Oxycodone HCl (Oxycodone 5 Mg Tab) 10 mg PO QID PRN PRN Reason: Pain Potassium Chloride (Potassium Chloride 10% 20 Meq/15 Ml Soln 15 Ml Ud Cup) 20 meq PO ONETIME ONE Stop: 03/28/21 07:58 Last Admin: 03/28/21 09:48 Dose: 20 meq Documented by: Vancomycin HCl (Pharmacy To Dose - Vancomycin) 1 dose .XX ASDIRECTED [facility] - Exam General: Reports: Alert HEENT: Reports: Pupils Equal Neck: Reports: Supple Lungs: Reports: Clear to Auscultation, Normal Respiratory Effort Cardiovascular: Reports: Regular Rate, Regular Rhythm GI/Abdominal Exam: Normal Bowel Sounds Extremities: Other (see exam from today)
[2021-03-31] MEDS ORDERED: Melatonin 3 MG Tab PO SCH (20:00)
== END 2021-03-31 16:05 | disposition short-term general hospital (02) | DRG 871 ==
LOC: VM.ED 15:02 → VM.MS 17:40
PROVIDERS: ADMIT Nurse Practitioner Family; ATTEND Nurse Practitioner Family
DX: A41.9 Sepsis, unspecified organism (principal); G93.41 Metabolic encephalopathy; S22.000A Wedge compression fracture of unspecified thoracic vertebra, initial encounter for closed fracture; D72.825 Bandemia; L03.115 Cellulitis of right lower limb; I25.119 Atherosclerotic heart disease of native coronary artery with unspecified angina pectoris; G93.40 Encephalopathy, unspecified; F11.23 Opioid dependence with withdrawal; T79.6XXA Traumatic ischemia of muscle, initial encounter; E78.5 Hyperlipidemia, unspecified; I77.9 Disorder of arteries and arterioles, unspecified; I73.9 Peripheral vascular disease, unspecified; M79.10 Myalgia, unspecified site; K44.9 Diaphragmatic hernia without obstruction or gangrene; M51.36 Other intervertebral disc degeneration, lumbar region; F33.9 Major depressive disorder, recurrent, unspecified; I25.10 Atherosclerotic heart disease of native coronary artery without angina pectoris; G60.9 Hereditary and idiopathic neuropathy, unspecified; E78.00 Pure hypercholesterolemia, unspecified; Z88.6 Allergy status to analgesic agent; I10 Essential (primary) hypertension; J44.9 Chronic obstructive pulmonary disease, unspecified; G25.81 Restless legs syndrome; G89.29 Other chronic pain; Z20.822 Contact with and (suspected) exposure to COVID-19; G62.9 Polyneuropathy, unspecified; F32.9 Major depressive disorder, single episode, unspecified; E86.0 Dehydration; E87.6 Hypokalemia; S91.209A Unspecified open wound of unspecified toe(s) with damage to nail, initial encounter; I25.2 Old myocardial infarction; Z87.440 Personal history of urinary (tract) infections; Z79.82 Long term (current) use of aspirin; Z79.899 Other long term (current) drug therapy; Z91.030 Bee allergy status; Z88.0 Allergy status to penicillin; Z88.5 Allergy status to narcotic agent; Z23 Encounter for immunization
CPT/HCPCS: 0241U; 36415; 70450; 70496; 70498; 71045; 72072; 72125; 72129; 73630-RT; 80048; 80053; 80305-QW; 80307; 81001; 82140; 82550; 82728; 82803; 83540; 83550; 83605; 83690; 83735; 83874; 84145; 84484; 85025; 86140; 87040; 90471; 90715; 93005; 93010; 96374; 96375; 97110-GP; 97112-GP; 97163-GP; 97165-GO; 97530-GP; 99223; 99232; 99233; 99238; 99285-25; A9270-GY; J0696; J1170; J1650; J2270; J3480; J7030; J7120; Q9967; U0002